=== PATIENT | male | born 1960 | race Caucasian/White ===

== ENCOUNTER 2017-11-12 20:49 | Emergency (ER) | payer MEDICARE, MEDICAID ==
[~2017-11-12] VITALS: Ht 584.7 cm; Wt 69.7 kg
[~2017-11-12 20:49] MED LIST: ASPI-1265 PO; BUPR150T8 PO; CETI-102 PO; CLON-528 PO; FLUT16SP2 NS; HYDR-569 PO; METF1000 PO; MULT-1179 PO; OMEP20CA10 PO; PALI6TAB PO; PAT0.1OS EACHEYE; ROSU10TA PO; SITA50TA PO; SYN0.088T PO
[2017-11-12] MEDS ORDERED: LORazepam 2 mg/ml vial IM ONE (21:35)
[2017-11-12 21:57] LABS: BASOPHILS % (AUTO) 0.2 % (0-1); EOSINOPHILS # (AUTO) 0.2 X10'3 (0-0.9); EOSINOPHILS % (AUTO) 2.4 % (0-6); HEMATOCRIT 38.7 % (42.0-52.0); HEMOGLOBIN 13.4 g/dl (14.0-17.9); LYMPHOCYTES % (AUTO) 12.7 % (21-51); MEAN CORPUSCULAR HEMOGLOBIN 29.7 PG (27.0-31.0); MEAN CORPUSCULAR HGB CONC 34.7 % (33.0-36.5); MEAN CORPUSCULAR VOLUME 85.6 FL (78-98); MONOCYTES # (AUTO) 0.6 X10'3 (0-0.9); NEUTROPHILS % (AUTO) 76.7 % (42-75); PLATELET COUNT 403 X10'3 (140-440); RED BLOOD COUNT 4.52 X10'6 (4.70-6.10); RED CELL DISTRIBUTION WIDTH 14.1 % (11.5-14.5); WHITE BLOOD COUNT 7.8 X10'3 (4.5-11.0)
[2017-11-12 22:12] LABS: ALANINE AMINOTRANSFERASE 81 U/L (12-78); ALBUMIN/GLOBULIN RATIO 0.9 (1.1-1.5); ALKALINE PHOSPHATASE 86 IU/L (46-116); ANION GAP 9 (8-16); ASPARTATE AMINO TRANSFERASE 86 U/L (10-37); BILIRUBIN,TOTAL 0.3 MG/DL (0.1-1.0); BLOOD UREA NITROGEN 9 MG/DL (7-18); BUN/CREATININE RATIO 10.6 (5.4-32.0); CALCIUM 8.2 MG/DL (8.5-10.1); CHLORIDE 91 MMOL/L (99-107); CREATININE 0.85 MG/DL (0.60-1.10); GLUCOSE 170 MG/DL (70-104); POTASSIUM 3.8 MMOL/L (3.5-5.1); SODIUM 125 MMOL/L (135-145); TOTAL CARBON DIOXIDE 25.4 MMOL/L (24-32); TOTAL PROTEIN 6.3 G/DL (6.4-8.2); eGFR > 90 ML/MIN
[2017-11-12 22:21] LABS: ETHANOL < 0.010 GM/DL (0.0-0.010)
[2017-11-12 22:21] LABS: URINE AMPHETAMINE SCREEN NEGATIVE (Neg); URINE BARBITUATE SCREEN NEGATIVE (Neg); URINE BENZODIAZEPINES SCREEN NEGATIVE (Neg); URINE CANNABINOID SCREEN POSITIVE (Neg); URINE COCAINE SCREEN NEGATIVE (Neg); URINE METHADONE SCREEN NEGATIVE (Neg); URINE OPIATE SCREEN NEGATIVE (Neg); URINE PHENCYCLIDINE SCREEN NEGATIVE (Neg)
[2017-11-12 22:27] LABS: CLARITY,URINE CLEAR (Clear); COLOR,URINE YELLOW (Yellow); GLUCOSE, URINE NEGATIVE (Neg); KETONES,URINE NEGATIVE (Neg); LEUKOCYTE ESTERASE ,URINE NEGATIVE (Neg); NITRITES, URINE NEGATIVE (Neg); OCCULT BLOOD,URINE SMALL (Neg); PROTEIN,URINE 100 mg/dl (Neg); UROBILINOGEN,URINE 0.2 E.U/dL (0.2-1.0)
[2017-11-12 22:30] LABS: UA COLLECTION TYPE CLN CATCH MIDSTREAM
[2017-11-12 22:33] LABS: BACTERIA,URINE NONE SEEN /HPF (Neg); MUCUS STRANDS NONE SEEN /LPF (Neg); RBC,URINE 0-2 /HPF (0-2); SQUAMOUS EPITHELIAL CELL,UR NONE SEEN /LPF (FEW); WBC,URINE NONE SEEN /HPF (0-4)
[2017-11-12] MEDS ORDERED: OXCA300T4 PO ×2 (22:52)
[2017-11-12] MEDS ORDERED: PALI6TAB PO (22:52)
[2017-11-12] MEDS ORDERED: QUET-1 PO (22:52)
[2017-11-12] MEDS ORDERED: VALS1TAB73 PO (22:52)
[2017-11-12] MEDS ORDERED: SITA1TAB2 PO (22:52)
[2017-11-13] MEDS ORDERED: albuterol 2.5 MG/3 ML nebule NEB PRN (16:40)
[2017-11-13 18:02] VITALS: BP 147/91
[2017-11-13] MEDS ORDERED: naphazoline/pheniramine eye 1 DROP BOTTLE EACHEYE SCH (20:00)
[2017-11-13] MEDS ORDERED: metFORMIN 500mg tablet PO SCH (20:00)
[2017-11-13] MEDS ORDERED: oxcarbazepine 150mg tablet PO SCH (21:00)
[2017-11-13] MEDS ORDERED: PALIPERIDONE 3 MG TAB.ER.24 PO SCH (21:00)
[2017-11-13] MEDS ORDERED: quetiapine 100mg tablet PO SCH (21:00)
[2017-11-14] MEDS ORDERED: levoTHYROXINE 88mcg tablet PO SCH (07:00)
[2017-11-14] MEDS ORDERED: pantoprazole 40mg Tablet.DR PO SCH (07:30)
[2017-11-14] MEDS ORDERED: oxcarbazepine 150mg tablet PO SCH (08:00)
[2017-11-14] MEDS ORDERED: HYDROchlorothiazide 12.5mg capsule PO SCH ×2 (08:00)
[2017-11-14] MEDS ORDERED: valsartan 80mg tablet PO SCH (08:00)
[2017-11-14] MEDS ORDERED: atorvastatin 20mg tablet PO SCH (08:00)
[2017-11-14] MEDS ORDERED: aspirin 81mg tab.chew PO SCH (08:30)
== END 2017-11-13 19:04 | disposition home or self-care (01) ==
LOC: ER 20:50
DX: F31.2 Bipolar disorder, current episode manic severe with psychotic features (principal); I25.10 Atherosclerotic heart disease of native coronary artery without angina pectoris; E78.00 Pure hypercholesterolemia, unspecified; I10 Essential (primary) hypertension; F20.9 Schizophrenia, unspecified; Z95.1 Presence of aortocoronary bypass graft; Z56.0 Unemployment, unspecified; Z88.1 Allergy status to other antibiotic agents; Z88.8 Allergy status to other drugs, medicaments and biological substances; Z79.82 Long term (current) use of aspirin; Z79.899 Other long term (current) drug therapy
CPT/HCPCS: 36415; 80053; 80305; 80320; 81001; 84443; 85025; 96372; 99285; J2060; J7030

== ENCOUNTER 2017-12-08 16:33 | Emergency (ER) | payer MEDICARE, MEDICAID ==
[~2017-12-08] VITALS: Ht 578.2 cm; Wt 70.0 kg
[~2017-12-08 16:33] MED LIST changes: -BUPR150T8 PO; -CLON-528 PO; -FLUT16SP2 NS; -HYDR-569 PO; +LITH150C8 PO; -METF1000 PO; +METF500T6 PO; -OMEP20CA10 PO; -PALI6TAB PO; +PANT40TA4 PO; -PAT0.1OS EACHEYE; +QUET100T33 PO; +QUET200T30 PO; +SITA1TAB2 PO; -SITA50TA PO; +TEMA30CA PO
[2017-12-08 16:37] VITALS: BP 154/93
[2017-12-08 17:53] LABS: BASOPHILS % (AUTO) 0.3 % (0-1); EOSINOPHILS # (AUTO) 0.1 X10'3 (0-0.9); EOSINOPHILS % (AUTO) 1.2 % (0-6); LYMPHOCYTES # (AUTO) 1.4 X10'3 (1.1-4.8); LYMPHOCYTES % (AUTO) 16.4 % (21-51); MEAN CORPUSCULAR HEMOGLOBIN 29.7 PG (27.0-31.0); MEAN CORPUSCULAR HGB CONC 34.2 % (33.0-36.5); MEAN CORPUSCULAR VOLUME 86.9 FL (78-98); MEAN PLATELET VOLUME 6.6 FL (7.4-10.4); MONOCYTES # (AUTO) 0.6 X10'3 (0-0.9); MONOCYTES % (AUTO) 6.9 % (2-12); NEUTROPHILS # (AUTO) 6.4 X10'3 (1.8-7.7); NEUTROPHILS % (AUTO) 75.2 % (42-75); PLATELET COUNT 446 X10'3 (140-440); RED BLOOD COUNT 4.37 X10'6 (4.70-6.10); RED CELL DISTRIBUTION WIDTH 14.1 % (11.5-14.5); WHITE BLOOD COUNT 8.6 X10'3 (4.5-11.0)
[2017-12-08 18:08] LABS: ALANINE AMINOTRANSFERASE 38 U/L (12-78); ALBUMIN 2.6 G/DL (3.4-5.0); ALBUMIN/GLOBULIN RATIO 0.7 (1.1-1.5); ALKALINE PHOSPHATASE 91 IU/L (46-116); ANION GAP 9 (8-16); ASPARTATE AMINO TRANSFERASE 32 U/L (10-37); BILIRUBIN,TOTAL 0.3 MG/DL (0.1-1.0); BLOOD UREA NITROGEN 16 MG/DL (7-18); BUN/CREATININE RATIO 17.8 (5.4-32.0); CALCIUM 8.9 MG/DL (8.5-10.1); CHLORIDE 92 MMOL/L (99-107); GLUCOSE 233 MG/DL (70-104); POTASSIUM 4.1 MMOL/L (3.5-5.1); SODIUM 126 MMOL/L (135-145); TOTAL PROTEIN 6.2 G/DL (6.4-8.2); eGFR 87 ML/MIN
[2017-12-08 18:09] LABS: URINE AMPHETAMINE SCREEN NEGATIVE (Neg); URINE BARBITUATE SCREEN NEGATIVE (Neg); URINE BENZODIAZEPINES SCREEN NEGATIVE (Neg); URINE CANNABINOID SCREEN POSITIVE (Neg); URINE COCAINE SCREEN NEGATIVE (Neg); URINE METHADONE SCREEN NEGATIVE (Neg); URINE OPIATE SCREEN NEGATIVE (Neg); URINE PHENCYCLIDINE SCREEN NEGATIVE (Neg)
[2017-12-08 18:18] LABS: ETHANOL < 0.010 GM/DL (0.0-0.010)
[2017-12-08] MEDS ORDERED: normal saline 1000ML IV soln IVB ONE (18:25)
== END 2017-12-08 20:06 | disposition home or self-care (01) ==
LOC: ER 16:33
DX: F30.9 Manic episode, unspecified (principal); Z95.1 Presence of aortocoronary bypass graft; Z98.890 Other specified postprocedural states; Z56.0 Unemployment, unspecified; Z88.1 Allergy status to other antibiotic agents; Z88.8 Allergy status to other drugs, medicaments and biological substances; Z79.84 Long term (current) use of oral hypoglycemic drugs; Z79.82 Long term (current) use of aspirin; Z79.899 Other long term (current) drug therapy
CPT/HCPCS: 36415; 80053; 80178; 80305; 80320; 84443; 85025; 99284; J7030

== ENCOUNTER 2017-12-08 18:25 | Inpatient (IN) | payer MEDICARE, MEDICAID ==
[~2017-12-08] VITALS: Ht 167.6 cm; Wt 65.5 kg
[2017-12-08 22:01] VITALS: BP 171/109
[2017-12-08] MEDS ORDERED: metFORMIN 500mg tablet PO ONE (22:15)
[2017-12-08] MEDS ORDERED: magnesium hydroxide 30ml (MOM) UD suspension PO PRN (22:25)
[2017-12-08] MEDS ORDERED: acetaminophen 325mg tablet PO PRN (22:25)
[2017-12-08] MEDS ORDERED: mag hydrox/Alum hydrox/simeth 30ml oral suspension PO PRN (22:25)
[2017-12-08] MEDS ORDERED: lithium carbonate 450mg CR tablet PO ONE (22:25)
[2017-12-08] MEDS: quetiapine 100mg tablet PO SCH (22:48)
[2017-12-09] MEDS: pantoprazole 40mg Tablet.DR PO SCH (07:15)
[2017-12-09] MEDS: quetiapine 100mg tablet PO SCH ×3 (07:16→21:58)
[2017-12-09] MEDS: levoTHYROXINE 100mcg tablet PO SCH (07:16)
[2017-12-09] MEDS: multivitamins, therapeutics tablet PO SCH (07:52)
[2017-12-09] MEDS: metFORMIN 500mg tablet PO SCH ×2 (07:52→20:00)
[2017-12-09] MEDS: cetirizine 10mg tablet PO SCH (07:52)
[2017-12-09] MEDS: losartan 50mg tablet PO SCH (07:52)
[2017-12-09] MEDS: aspirin 81mg tab.chew PO SCH (07:53)
[2017-12-09 07:59] LABS: ALANINE AMINOTRANSFERASE 36 U/L (12-78); ALBUMIN 2.3 G/DL (3.4-5.0); ALBUMIN/GLOBULIN RATIO 0.7 (1.1-1.5); ALKALINE PHOSPHATASE 75 IU/L (46-116); ASPARTATE AMINO TRANSFERASE 21 U/L (10-37); BILIRUBIN,TOTAL 0.2 MG/DL (0.1-1.0); BLOOD UREA NITROGEN 13 MG/DL (7-18); BUN/CREATININE RATIO 14.4 (5.4-32.0); CALCIUM 8.6 MG/DL (8.5-10.1); CHOL/HDL RATIO 4.9 (0.00-4.99); CHOLESTEROL 248 MG/DL (0-200); GLUCOSE 167 MG/DL (70-104); HDL CHOLESTEROL 51 MG/DL (35-60); LDL CHOLESTEROL 156 MG/DL (50-100); TOTAL CARBON DIOXIDE 24.8 MMOL/L (24-32); TOTAL PROTEIN 5.7 G/DL (6.4-8.2); TRIGLYCERIDES 209 MG/DL (20-135); eGFR 87 ML/MIN
[2017-12-09 08:00] VITALS: BP 124/73
[2017-12-09 08:00] LABS: ANION GAP 6 (8-16); CHLORIDE 102 MMOL/L (99-107); POTASSIUM 3.7 MMOL/L (3.5-5.1); SODIUM 133 MMOL/L (135-145)
[2017-12-09] MEDS ORDERED: SITAGLIPTIN PHOS PO SCH (08:00)
[2017-12-09] MEDS ORDERED: metFORMIN 500mg tablet PO SCH (08:00)
[2017-12-09] MEDS ORDERED: METFORMIN HCL PO SCH (08:00)
[2017-12-09] MEDS: lithium carbonate 150mg capsule PO SCH ×2 (08:19→21:59)
[2017-12-09] MEDS: acetaminophen 325mg tablet PO PRN ×2 (09:46→17:03)
[2017-12-09 19:59] VITALS: BP 151/86
[2017-12-09] MEDS: temazepam 15mg capsule PO PRN (22:08)
[2017-12-10] MEDS: metFORMIN 500mg tablet PO SCH ×2 (07:36→20:39)
[2017-12-10] MEDS: losartan 50mg tablet PO SCH (07:37)
[2017-12-10] MEDS: cetirizine 10mg tablet PO SCH (07:37)
[2017-12-10] MEDS: multivitamins, therapeutics tablet PO SCH (07:37)
[2017-12-10] MEDS: quetiapine 100mg tablet PO SCH (07:37)
[2017-12-10] MEDS: aspirin 81mg tab.chew PO SCH (07:37)
[2017-12-10] MEDS: pantoprazole 40mg Tablet.DR PO SCH (07:37)
[2017-12-10] MEDS: levoTHYROXINE 100mcg tablet PO SCH (07:37)
[2017-12-10] MEDS: lithium carbonate 150mg capsule PO SCH ×2 (07:38→20:38)
[2017-12-10 08:00] VITALS: BP 134/94
[2017-12-10 08:25] LABS: ALANINE AMINOTRANSFERASE 37 U/L (12-78); ALBUMIN 2.9 G/DL (3.4-5.0); ALBUMIN/GLOBULIN RATIO 0.8 (1.1-1.5); ALKALINE PHOSPHATASE 94 IU/L (46-116); ANION GAP 9 (8-16); ASPARTATE AMINO TRANSFERASE 26 U/L (10-37); BILIRUBIN,TOTAL 0.4 MG/DL (0.1-1.0); BLOOD UREA NITROGEN 17 MG/DL (7-18); CALCIUM 9.2 MG/DL (8.5-10.1); CHLORIDE 101 MMOL/L (99-107); CREATININE 1.13 MG/DL (0.60-1.10); GLUCOSE 159 MG/DL (70-104); POTASSIUM 3.2 MMOL/L (3.5-5.1); SODIUM 136 MMOL/L (135-145); TOTAL CARBON DIOXIDE 26.5 MMOL/L (24-32); TOTAL PROTEIN 6.7 G/DL (6.4-8.2); eGFR 67 ML/MIN
[2017-12-10] MEDS: QUETIAPINE 200 MG TAB.SR.24H PO SCH (17:46)
[2017-12-10 19:00] VITALS: BP 136/79
[2017-12-10 23:39] LABS: BASOPHILS # (AUTO) 0.1 X10'3 (0-0.2); BASOPHILS % (AUTO) 0.9 % (0-1); EOSINOPHILS # (AUTO) 0.1 X10'3 (0-0.9); EOSINOPHILS % (AUTO) 1.8 % (0-6); HEMATOCRIT 38.9 % (42.0-52.0); HEMOGLOBIN 13.4 g/dl (14.0-17.9); LYMPHOCYTES # (AUTO) 1.2 X10'3 (1.1-4.8); MEAN CORPUSCULAR HEMOGLOBIN 29.8 PG (27.0-31.0); MEAN CORPUSCULAR HGB CONC 34.4 % (33.0-36.5); MEAN CORPUSCULAR VOLUME 86.6 FL (78-98); MEAN PLATELET VOLUME 6.5 FL (7.4-10.4); MONOCYTES # (AUTO) 0.4 X10'3 (0-0.9); MONOCYTES % (AUTO) 6.9 % (2-12); NEUTROPHILS # (AUTO) 4.7 X10'3 (1.8-7.7); NEUTROPHILS % (AUTO) 72.4 % (42-75); PLATELET COUNT 449 X10'3 (140-440); RED BLOOD COUNT 4.49 X10'6 (4.70-6.10); RED CELL DISTRIBUTION WIDTH 14.6 % (11.5-14.5); WHITE BLOOD COUNT 6.5 X10'3 (4.5-11.0)
[2017-12-10] MEDS ORDERED: normal saline 1000ml 1,000 ML IV ONE ×2 (23:45)
[2017-12-10 23:53] LABS: ALBUMIN 2.6 G/DL (3.4-5.0); ALBUMIN/GLOBULIN RATIO 0.8 (1.1-1.5); ALKALINE PHOSPHATASE 78 IU/L (46-116); ANION GAP 12 (8-16); ASPARTATE AMINO TRANSFERASE 27 U/L (10-37); BILIRUBIN,TOTAL 0.3 MG/DL (0.1-1.0); BLOOD UREA NITROGEN 23 MG/DL (7-18); BUN/CREATININE RATIO 16.7 (5.4-32.0); CALCIUM 8.6 MG/DL (8.5-10.1); CHLORIDE 100 MMOL/L (99-107); CREATININE 1.38 MG/DL (0.60-1.10); GLUCOSE 212 MG/DL (70-104); SODIUM 133 MMOL/L (135-145); TOTAL CARBON DIOXIDE 21.3 MMOL/L (24-32); eGFR 53 ML/MIN
[2017-12-10 23:55] LABS: ALANINE AMINOTRANSFERASE 39 U/L (12-78); POTASSIUM 3.7 MMOL/L (3.5-5.1)
[2017-12-11] MEDS: temazepam 15mg capsule PO PRN ×2 (02:55→20:32)
[2017-12-11] MEDS: quetiapine 100mg tablet PO PRN ×2 (02:55→20:31)
[2017-12-11] MEDS: pantoprazole 40mg Tablet.DR PO SCH (07:48)
[2017-12-11] MEDS: levoTHYROXINE 100mcg tablet PO SCH (07:48)
[2017-12-11 08:00] VITALS: BP 154/84
[2017-12-11] MEDS: aspirin 81mg tab.chew PO SCH (08:56)
[2017-12-11] MEDS: cetirizine 10mg tablet PO SCH (08:57)
[2017-12-11] MEDS: metFORMIN 500mg tablet PO SCH ×2 (08:57→20:31)
[2017-12-11] MEDS: acetaminophen 325mg tablet PO PRN ×2 (08:57→20:34)
[2017-12-11] MEDS: multivitamins, therapeutics tablet PO SCH (08:57)
[2017-12-11 09:30] LABS: ALANINE AMINOTRANSFERASE 39 U/L (12-78); ALBUMIN 2.6 G/DL (3.4-5.0); ALBUMIN/GLOBULIN RATIO 0.8 (1.1-1.5); ALKALINE PHOSPHATASE 78 IU/L (46-116); ANION GAP 6 (8-16); ASPARTATE AMINO TRANSFERASE 24 U/L (10-37); BILIRUBIN,TOTAL 0.4 MG/DL (0.1-1.0); BLOOD UREA NITROGEN 14 MG/DL (7-18); BUN/CREATININE RATIO 13.6 (5.4-32.0); CALCIUM 8.5 MG/DL (8.5-10.1); CHLORIDE 103 MMOL/L (99-107); CREATININE 1.03 MG/DL (0.60-1.10); GLUCOSE 135 MG/DL (70-104); POTASSIUM 3.4 MMOL/L (3.5-5.1); SODIUM 135 MMOL/L (135-145); eGFR 74 ML/MIN
[2017-12-11] MEDS: losartan 50mg tablet PO SCH (09:42)
[2017-12-11] MEDS: lithium carbonate 150mg capsule PO SCH (09:44)
[2017-12-11] MEDS: QUETIAPINE 200 MG TAB.SR.24H PO SCH (17:57)
[2017-12-11 19:00] VITALS: BP 154/86
[2017-12-11] MEDS ORDERED: lithium carbonate 150mg capsule PO SCH (21:00)
[2017-12-12] MEDS: quetiapine 100mg tablet PO PRN ×2 (00:51→21:39)
[2017-12-12] MEDS: pantoprazole 40mg Tablet.DR PO SCH (07:46)
[2017-12-12] MEDS: levoTHYROXINE 100mcg tablet PO SCH (07:46)
[2017-12-12 08:03] LABS: ALBUMIN 2.7 G/DL (3.4-5.0); ANION GAP 6 (8-16); BLOOD UREA NITROGEN 13 MG/DL (7-18); BUN/CREATININE RATIO 12.7 (5.4-32.0); CALCIUM 8.6 MG/DL (8.5-10.1); CHLORIDE 100 MMOL/L (99-107); CREATININE 1.02 MG/DL (0.60-1.10); GLUCOSE 172 MG/DL (70-104); POTASSIUM 4.1 MMOL/L (3.5-5.1); SODIUM 132 MMOL/L (135-145); TOTAL CARBON DIOXIDE 25.8 MMOL/L (24-32); eGFR 75 ML/MIN
[2017-12-12 08:10] VITALS: BP 103/71
[2017-12-12] MEDS ORDERED: loperamide 2mg capsule PO PRN ×2 (08:10→08:50)
[2017-12-12] MEDS: cetirizine 10mg tablet PO SCH (08:52)
[2017-12-12] MEDS: aspirin 81mg tab.chew PO SCH (08:52)
[2017-12-12] MEDS: multivitamins, therapeutics tablet PO SCH (08:52)
[2017-12-12] MEDS: metFORMIN 500mg tablet PO SCH ×2 (08:53→19:27)
[2017-12-12] MEDS: lithium carbonate 150mg capsule PO SCH ×2 (08:53→19:26)
[2017-12-12 09:00] VITALS: BP 146/95
[2017-12-12] MEDS: QUETIAPINE 200 MG TAB.SR.24H PO SCH (18:01)
[2017-12-12] MEDS: acetaminophen 325mg tablet PO PRN (19:28)
[2017-12-12 20:00] VITALS: BP 150/73
[2017-12-12] MEDS: temazepam 15mg capsule PO PRN (21:39)
[2017-12-13] MEDS: pantoprazole 40mg Tablet.DR PO SCH (07:43)
[2017-12-13] MEDS: cetirizine 10mg tablet PO SCH (07:43)
[2017-12-13] MEDS: lithium carbonate 150mg capsule PO SCH ×2 (07:44→20:57)
[2017-12-13] MEDS: aspirin 81mg tab.chew PO SCH (07:45)
[2017-12-13] MEDS: metFORMIN 500mg tablet PO SCH ×2 (07:45→20:57)
[2017-12-13] MEDS: multivitamins, therapeutics tablet PO SCH (07:45)
[2017-12-13] MEDS: levoTHYROXINE 100mcg tablet PO SCH (07:45)
[2017-12-13 08:04] VITALS: BP 138/85
[2017-12-13 09:21] LABS: ALBUMIN 2.7 G/DL (3.4-5.0); ANION GAP 2 (8-16); BLOOD UREA NITROGEN 12 MG/DL (7-18); BUN/CREATININE RATIO 11.3 (5.4-32.0); CALCIUM 8.9 MG/DL (8.5-10.1); CHLORIDE 101 MMOL/L (99-107); CREATININE 1.06 MG/DL (0.60-1.10); GLUCOSE 203 MG/DL (70-104); POTASSIUM 4.2 MMOL/L (3.5-5.1); SODIUM 133 MMOL/L (135-145); TOTAL CARBON DIOXIDE 29.7 MMOL/L (24-32); eGFR 72 ML/MIN
[2017-12-13 14:07] LABS: CRYPTOSPORIDIUM AG NEGATIVE (Neg); GIARDIA LAMBLIA AG NEGATIVE (Neg)
[2017-12-13 18:57] VITALS: BP 157/88
[2017-12-13] MEDS: QUETIAPINE 200 MG TAB.SR.24H PO SCH (19:17)
[2017-12-13] MEDS: acetaminophen 325mg tablet PO PRN (19:18)
[2017-12-13] MEDS: divalproex sod 250mg ER (24-hour) tablet PO SCH (20:57)
[2017-12-13] MEDS: temazepam 15mg capsule PO PRN (20:58)
[2017-12-14 08:00] VITALS: BP 138/93
[2017-12-14] MEDS: levoTHYROXINE 100mcg tablet PO SCH (08:15)
[2017-12-14] MEDS: aspirin 81mg tab.chew PO SCH (08:16)
[2017-12-14] MEDS: lithium carbonate 150mg capsule PO SCH ×2 (08:16→20:24)
[2017-12-14] MEDS: pantoprazole 40mg Tablet.DR PO SCH (08:16)
[2017-12-14] MEDS: metFORMIN 500mg tablet PO SCH ×2 (08:16→20:24)
[2017-12-14] MEDS: multivitamins, therapeutics tablet PO SCH (08:16)
[2017-12-14] MEDS: cetirizine 10mg tablet PO SCH (08:16)
[2017-12-14] MEDS: QUETIAPINE 200 MG TAB.SR.24H PO SCH (17:36)
[2017-12-14 19:00] VITALS: BP 144/84
[2017-12-14] MEDS: divalproex sod 250mg ER (24-hour) tablet PO SCH (20:24)
[2017-12-14] MEDS: temazepam 15mg capsule PO PRN (21:38)
[2017-12-15] MEDS: metFORMIN 500mg tablet PO SCH ×2 (07:48→20:36)
[2017-12-15] MEDS: pantoprazole 40mg Tablet.DR PO SCH (07:48)
[2017-12-15] MEDS: levoTHYROXINE 100mcg tablet PO SCH (07:48)
[2017-12-15] MEDS: multivitamins, therapeutics tablet PO SCH (07:48)
[2017-12-15] MEDS: cetirizine 10mg tablet PO SCH (07:48)
[2017-12-15] MEDS: lithium carbonate 150mg capsule PO SCH ×2 (07:49→20:36)
[2017-12-15] MEDS: aspirin 81mg tab.chew PO SCH (07:49)
[2017-12-15 08:00] VITALS: BP 153/89
[2017-12-15] MEDS: QUETIAPINE 200 MG TAB.SR.24H PO SCH (17:42)
[2017-12-15 20:00] VITALS: BP 161/78
[2017-12-15] MEDS: divalproex sod 250mg ER (24-hour) tablet PO SCH (22:00)
[2017-12-15] MEDS: temazepam 15mg capsule PO PRN (22:08)
[2017-12-16] MEDS ORDERED: temazepam 15mg capsule PO ONE
[2017-12-16] MEDS: levoTHYROXINE 100mcg tablet PO SCH (07:10)
[2017-12-16] MEDS: pantoprazole 40mg Tablet.DR PO SCH (07:10)
[2017-12-16 08:00] VITALS: BP 134/97
[2017-12-16] MEDS ORDERED: divalproex sod 250mg ER (24-hour) tablet PO SCH (08:00)
[2017-12-16] MEDS: metFORMIN 500mg tablet PO SCH ×2 (08:06→21:03)
[2017-12-16] MEDS: multivitamins, therapeutics tablet PO SCH (08:06)
[2017-12-16] MEDS: aspirin 81mg tab.chew PO SCH (08:06)
[2017-12-16] MEDS: cetirizine 10mg tablet PO SCH (08:07)
[2017-12-16] MEDS: lithium carbonate 150mg capsule PO SCH ×2 (08:07→21:04)
[2017-12-16] MEDS: QUETIAPINE 200 MG TAB.SR.24H PO SCH (18:58)
[2017-12-16 20:21] VITALS: BP 135/85
[2017-12-16] MEDS: quetiapine 100mg tablet PO PRN (21:04)
[2017-12-16] MEDS: temazepam 15mg capsule PO PRN (21:58)
[2017-12-17] MEDS: pantoprazole 40mg Tablet.DR PO SCH (07:17)
[2017-12-17] MEDS: levoTHYROXINE 100mcg tablet PO SCH (07:17)
[2017-12-17] MEDS: aspirin 81mg tab.chew PO SCH (07:58)
[2017-12-17] MEDS: multivitamins, therapeutics tablet PO SCH (07:59)
[2017-12-17] MEDS: lithium carbonate 150mg capsule PO SCH ×2 (07:59→20:09)
[2017-12-17] MEDS: metFORMIN 500mg tablet PO SCH ×2 (07:59→18:49)
[2017-12-17] MEDS: divalproex sod 250mg ER (24-hour) tablet PO SCH ×2 (07:59→20:07)
[2017-12-17] MEDS: cetirizine 10mg tablet PO SCH (07:59)
[2017-12-17 08:00] VITALS: BP 147/92
[2017-12-17] MEDS: acetaminophen 325mg tablet PO PRN (17:08)
[2017-12-17] MEDS: QUETIAPINE 200 MG TAB.SR.24H PO SCH (17:53)
[2017-12-17 20:00] VITALS: BP 142/84
[2017-12-17] MEDS: quetiapine 100mg tablet PO PRN (22:12)
[2017-12-17] MEDS: temazepam 15mg capsule PO PRN (22:12)
[2017-12-18] MEDS: divalproex sod 250mg ER (24-hour) tablet PO SCH ×2 (07:34→20:54)
[2017-12-18] MEDS: pantoprazole 40mg Tablet.DR PO SCH (07:34)
[2017-12-18] MEDS: metFORMIN 500mg tablet PO SCH ×2 (07:34→20:53)
[2017-12-18] MEDS: levoTHYROXINE 100mcg tablet PO SCH (07:34)
[2017-12-18] MEDS: cetirizine 10mg tablet PO SCH (07:34)
[2017-12-18] MEDS: lithium carbonate 150mg capsule PO SCH ×2 (07:35→20:54)
[2017-12-18] MEDS: aspirin 81mg tab.chew PO SCH (07:35)
[2017-12-18] MEDS: multivitamins, therapeutics tablet PO SCH (07:35)
[2017-12-18 08:00] VITALS: BP 163/88
[2017-12-18] MEDS: QUETIAPINE 200 MG TAB.SR.24H PO SCH (17:49)
[2017-12-18 19:36] VITALS: BP 155/87
[2017-12-18] MEDS: temazepam 15mg capsule PO PRN ×2 (20:53→22:01)
[2017-12-18] MEDS: quetiapine 100mg tablet PO PRN (22:01)
[2017-12-19 08:00] VITALS: BP 136/85
[2017-12-19] MEDS: levoTHYROXINE 100mcg tablet PO SCH (08:21)
[2017-12-19] MEDS: metFORMIN 500mg tablet PO SCH ×2 (08:21→19:17)
[2017-12-19] MEDS: multivitamins, therapeutics tablet PO SCH (08:21)
[2017-12-19] MEDS: aspirin 81mg tab.chew PO SCH (08:21)
[2017-12-19] MEDS: cetirizine 10mg tablet PO SCH (08:22)
[2017-12-19] MEDS: pantoprazole 40mg Tablet.DR PO SCH (08:22)
[2017-12-19] MEDS: lithium carbonate 150mg capsule PO SCH ×2 (09:07→19:17)
[2017-12-19] MEDS: divalproex sod 250mg ER (24-hour) tablet PO SCH ×2 (09:07→19:17)
[2017-12-19 09:29] LABS: BASOPHILS % (AUTO) 0.4 % (0-1); EOSINOPHILS # (AUTO) 0.2 X10'3 (0-0.9); EOSINOPHILS % (AUTO) 3.2 % (0-6); HEMATOCRIT 39.8 % (42.0-52.0); HEMOGLOBIN 13.4 g/dl (14.0-17.9); LYMPHOCYTES # (AUTO) 1.2 X10'3 (1.1-4.8); LYMPHOCYTES % (AUTO) 17.7 % (21-51); MEAN CORPUSCULAR HEMOGLOBIN 29.4 PG (27.0-31.0); MEAN CORPUSCULAR HGB CONC 33.8 % (33.0-36.5); MEAN CORPUSCULAR VOLUME 87.2 FL (78-98); MEAN PLATELET VOLUME 6.6 FL (7.4-10.4); MONOCYTES # (AUTO) 0.4 X10'3 (0-0.9); MONOCYTES % (AUTO) 5.5 % (2-12); NEUTROPHILS % (AUTO) 73.2 % (42-75); PLATELET COUNT 362 X10'3 (140-440); RED BLOOD COUNT 4.57 X10'6 (4.70-6.10); RED CELL DISTRIBUTION WIDTH 14.8 % (11.5-14.5); WHITE BLOOD COUNT 6.8 X10'3 (4.5-11.0)
[2017-12-19 09:46] LABS: ALANINE AMINOTRANSFERASE 24 U/L (12-78); ALBUMIN 2.7 G/DL (3.4-5.0); ALBUMIN/GLOBULIN RATIO 0.8 (1.1-1.5); ALKALINE PHOSPHATASE 77 IU/L (46-116); ANION GAP 6 (8-16); ASPARTATE AMINO TRANSFERASE 19 U/L (10-37); BILIRUBIN,TOTAL 0.3 MG/DL (0.1-1.0); BLOOD UREA NITROGEN 13 MG/DL (7-18); BUN/CREATININE RATIO 12.1 (5.4-32.0); CALCIUM 8.5 MG/DL (8.5-10.1); CHLORIDE 100 MMOL/L (99-107); CREATININE 1.07 MG/DL (0.60-1.10); GLUCOSE 271 MG/DL (70-104); POTASSIUM 4.1 MMOL/L (3.5-5.1); SODIUM 135 MMOL/L (135-145); TOTAL CARBON DIOXIDE 28.8 MMOL/L (24-32); TOTAL PROTEIN 5.9 G/DL (6.4-8.2); eGFR 71 ML/MIN
[2017-12-19 09:53] LABS: VALPROATE 31 UG/ML (50-100)
[2017-12-19 19:00] VITALS: BP 154/87
[2017-12-19] MEDS: quetiapine 100mg tablet PO PRN ×2 (19:20→22:20)
[2017-12-19] MEDS: QUETIAPINE 200 MG TAB.SR.24H PO SCH (19:24)
[2017-12-19] MEDS: acetaminophen 325mg tablet PO PRN (20:11)
[2017-12-20] MEDS: levoTHYROXINE 100mcg tablet PO SCH (07:07)
[2017-12-20] MEDS: pantoprazole 40mg Tablet.DR PO SCH (07:07)
[2017-12-20] MEDS ORDERED: METF500T6 PO (07:32)
[2017-12-20] MEDS ORDERED: LEVO50TA8 PO (07:32)
[2017-12-20] MEDS ORDERED: SITA100T11 PO (07:32)
[2017-12-20] MEDS ORDERED: PANT40TA4 PO (07:32)
[2017-12-20] MEDS ORDERED: TEMA15CA PO (07:32)
[2017-12-20] MEDS ORDERED: QUET400T54 PO (07:32)
[2017-12-20] MEDS ORDERED: LIT300C PO (07:32)
[2017-12-20 08:00] VITALS: BP 137/87
[2017-12-20] MEDS: aspirin 81mg tab.chew PO SCH (08:19)
[2017-12-20] MEDS: metFORMIN 500mg tablet PO SCH (08:20)
[2017-12-20] MEDS: lithium carbonate 150mg capsule PO SCH (08:20)
[2017-12-20] MEDS: cetirizine 10mg tablet PO SCH (08:20)
[2017-12-20] MEDS: divalproex sod 250mg ER (24-hour) tablet PO SCH (08:20)
[2017-12-20] MEDS: multivitamins, therapeutics tablet PO SCH (08:23)
== END 2017-12-20 11:05 | disposition home or self-care (01) | DRG 885 ==
LOC: ADULT MH 18:25
PROVIDERS: ADMIT Psychiatry & Neurology Psychiatry; ATTEND Psychiatry & Neurology Psychiatry
DX: F31.2 Bipolar disorder, current episode manic severe with psychotic features (principal); E87.1 Hypo-osmolality and hyponatremia; K50.90 Crohn's disease, unspecified, without complications; K21.9 Gastro-esophageal reflux disease without esophagitis; E78.5 Hyperlipidemia, unspecified; E03.9 Hypothyroidism, unspecified; E11.9 Type 2 diabetes mellitus without complications; G47.00 Insomnia, unspecified; I10 Essential (primary) hypertension; Z96.1 Presence of intraocular lens; I25.10 Atherosclerotic heart disease of native coronary artery without angina pectoris; I95.1 Orthostatic hypotension; F12.29 Cannabis dependence with unspecified cannabis-induced disorder; Z91.14 Patient's other noncompliance with medication regimen; Z95.1 Presence of aortocoronary bypass graft; Z88.8 Allergy status to other drugs, medicaments and biological substances; Z88.1 Allergy status to other antibiotic agents; Z98.42 Cataract extraction status, left eye; Z98.41 Cataract extraction status, right eye; Z79.899 Other long term (current) drug therapy; Z79.84 Long term (current) use of oral hypoglycemic drugs; Z81.8 Family history of other mental and behavioral disorders
CPT/HCPCS: 36415; 80048; 80053; 80061; 80164; 80178; 82948; 83036; 85025; 87045; 87046; 87070; 87328; 87329; 87336; 89055; J7030

== ENCOUNTER 2018-07-19 15:16 | Emergency (ER) | payer MEDICARE, MEDICAID ==
[~2018-07-19] VITALS: Ht 172.7 cm; Wt 72.7 kg
[~2018-07-19 15:16] MED LIST changes: +LEVO50TA8 PO; +LIT300C PO; -LITH150C8 PO; +METF-950 PO; -METF500T6 PO; -QUET100T33 PO; -QUET200T30 PO; +QUET400T54 PO; -ROSU10TA PO; +SITA100T11 PO; -SITA1TAB2 PO; -SYN0.088T PO; +TEMA15CA PO; -TEMA30CA PO
[2018-07-19 16:45] LABS: BASOPHILS % (AUTO) 0.5 % (0-1); EOSINOPHILS # (AUTO) 0.2 X10'3 (0-0.9); EOSINOPHILS % (AUTO) 2.6 % (0-6); HEMATOCRIT 41.4 % (42.0-52.0); LYMPHOCYTES # (AUTO) 1.1 X10'3 (1.1-4.8); LYMPHOCYTES % (AUTO) 11.9 % (21-51); MEAN CORPUSCULAR HEMOGLOBIN 30.8 PG (27.0-31.0); MEAN CORPUSCULAR HGB CONC 33.8 g/dL (33.0-36.5); MEAN CORPUSCULAR VOLUME 91.2 FL (78-98); MEAN PLATELET VOLUME 7.6 FL (7.4-10.4); MONOCYTES # (AUTO) 1.3 X10'3 (0-0.9); MONOCYTES % (AUTO) 13.7 % (2-12); NEUTROPHILS # (AUTO) 6.8 X10'3 (1.8-7.7); NEUTROPHILS % (AUTO) 71.3 % (42-75); PLATELET COUNT 225 X10'3 (140-440); RED BLOOD COUNT 4.54 X10'6 (4.70-6.10); RED CELL DISTRIBUTION WIDTH 12.9 % (11.5-14.5); WHITE BLOOD COUNT 9.5 X10'3 (4.5-11.0)
[2018-07-19 17:02] LABS: ALANINE AMINOTRANSFERASE 21 U/L (12-78); ALBUMIN 3.4 G/DL (3.4-5.0); ALBUMIN/GLOBULIN RATIO 0.9 (1.1-1.5); ALKALINE PHOSPHATASE 62 IU/L (46-116); ANION GAP 8 (8-16); ASPARTATE AMINO TRANSFERASE 11 U/L (10-37); BILIRUBIN,TOTAL 0.6 MG/DL (0.1-1.0); BLOOD UREA NITROGEN 14 MG/DL (7-18); BUN/CREATININE RATIO 11.2 (5.4-32.0); CALCIUM 9.6 MG/DL (8.5-10.1); CHLORIDE 102 MMOL/L (99-107); CREATININE 1.25 MG/DL (0.60-1.10); GLUCOSE 173 MG/DL (70-104); POTASSIUM 4.5 MMOL/L (3.5-5.1); SODIUM 136 MMOL/L (135-145); TOTAL CARBON DIOXIDE 25.7 MMOL/L (24-32); TOTAL PROTEIN 7.4 G/DL (6.4-8.2); eGFR 59 ML/MIN
[2018-07-19] MEDS ORDERED: normal saline 1000ML IV soln IVB ONE (17:20)
[2018-07-19] MEDS ORDERED: iohexol 300mg/ml 100ml inj. ONE (17:29)
--- NOTE | 2018-07-19 18:01 | NUR ---
PT TO GO TO CT, IV STARTED
[2018-07-19] MEDS ORDERED: [UNRECOGNIZED DRUG - REMARK] PO NR (18:40)
[2018-07-19] MEDS ORDERED: clindamycin 600mg/D5W 50ml 50 ML IV ONE (20:15)
[2018-07-19] MEDS ORDERED: CLIN150C2 PO (20:41)
[2018-07-19 21:10] VITALS: BP 122/54
== END 2018-07-19 21:14 | disposition home or self-care (01) ==
LOC: ER 15:17
DX: K04.7 Periapical abscess without sinus (principal); M27.2 Inflammatory conditions of jaws; K08.89 Other specified disorders of teeth and supporting structures; K02.9 Dental caries, unspecified; I25.10 Atherosclerotic heart disease of native coronary artery without angina pectoris; E78.00 Pure hypercholesterolemia, unspecified; I10 Essential (primary) hypertension; Z95.1 Presence of aortocoronary bypass graft; Z56.0 Unemployment, unspecified; Z88.1 Allergy status to other antibiotic agents; Z79.82 Long term (current) use of aspirin; Z79.899 Other long term (current) drug therapy
CPT/HCPCS: 36415; 70487; 80053; 85025; 96365; 99284; J7030; Q9967; J3490

== ENCOUNTER 2019-06-12 12:02 | Emergency (ER) | payer MEDICARE, MEDICAID ==
[~2019-06-12] VITALS: Ht 172.7 cm; Wt 67.3 kg
[~2019-06-12 12:02] MED LIST changes: -CETI-102 PO; +CETI-90 PO
[2019-06-12] MEDS ORDERED: vancomycin 125mg/5ml ORAL solution 5ml UD bottle PO SCH (13:05)
[2019-06-12] MEDS ORDERED: VANC125C5 PO (13:12)
[2019-06-12 13:37] LABS: BASOPHILS % (AUTO) 0.5 % (0-1); EOSINOPHILS # (AUTO) 0.6 X10'3 (0-0.9); EOSINOPHILS % (AUTO) 7.2 % (0-6); HEMATOCRIT 33.1 % (42.0-52.0); HEMOGLOBIN 11.5 g/dl (14.0-17.9); LYMPHOCYTES # (AUTO) 1.3 X10'3 (1.1-4.8); LYMPHOCYTES % (AUTO) 14.7 % (21-51); MEAN CORPUSCULAR HEMOGLOBIN 31.5 PG (27.0-31.0); MEAN CORPUSCULAR HGB CONC 34.6 g/dL (33.0-36.5); MEAN CORPUSCULAR VOLUME 91.1 FL (78-98); MEAN PLATELET VOLUME 7.7 FL (7.4-10.4); MONOCYTES # (AUTO) 0.8 X10'3 (0-0.9); MONOCYTES % (AUTO) 8.8 % (2-12); NEUTROPHILS # (AUTO) 6.1 X10'3 (1.8-7.7); NEUTROPHILS % (AUTO) 68.8 % (42-75); PLATELET COUNT 319 X10'3 (140-440); RED BLOOD COUNT 3.63 X10'6 (4.70-6.10); RED CELL DISTRIBUTION WIDTH 12.6 % (11.5-14.5); WHITE BLOOD COUNT 8.9 X10'3 (4.5-11.0)
[2019-06-12 13:38] LABS: CLARITY,URINE CLEAR (Clear); COLOR,URINE YELLOW (Yellow); GLUCOSE, URINE 100 mg/dl (Neg); KETONES,URINE NEGATIVE (Neg); LEUKOCYTE ESTERASE ,URINE NEGATIVE (Neg); NITRITES, URINE NEGATIVE (Neg); OCCULT BLOOD,URINE MODERATE (Neg); PROTEIN,URINE 100 mg/dl (Neg); UROBILINOGEN,URINE 0.2 E.U/dL (0.2-1.0)
[2019-06-12 13:41] LABS: UA COLLECTION TYPE URINAL
[2019-06-12 13:49] LABS: BACTERIA,URINE FEW /HPF (Neg); SQUAMOUS EPITHELIAL CELL,UR FEW /LPF (FEW); WBC,URINE 0-4 /HPF (0-4)
[2019-06-12 13:50] LABS: ALANINE AMINOTRANSFERASE 200 U/L (12-78); ALBUMIN 2.9 G/DL (3.4-5.0); ALBUMIN/GLOBULIN RATIO 0.6 (1.1-1.5); ALKALINE PHOSPHATASE 176 IU/L (46-116); ANION GAP 8 (8-16); ASPARTATE AMINO TRANSFERASE 105 U/L (10-37); BILIRUBIN,TOTAL 0.3 MG/DL (0.1-1.0); BLOOD UREA NITROGEN 20 MG/DL (7-18); BUN/CREATININE RATIO 13.7 (5.4-32.0); CALCIUM 9.3 MG/DL (8.5-10.1); CHLORIDE 103 MMOL/L (99-107); CREATININE 1.46 MG/DL (0.60-1.10); GLUCOSE 117 MG/DL (70-104); POTASSIUM 3.7 MMOL/L (3.5-5.1); SODIUM 134 MMOL/L (135-145); TOTAL CARBON DIOXIDE 22.7 MMOL/L (24-32); TOTAL PROTEIN 7.5 G/DL (6.4-8.2); eGFR 49 ML/MIN
[2019-06-12] MEDS ORDERED: normal saline 1000ml 1,000 ML IV ONE (14:00)
[2019-06-12 14:41] VITALS: BP 123/66
== END 2019-06-12 15:56 | disposition home or self-care (01) ==
LOC: ER 12:04
DX: R33.9 Retention of urine, unspecified (principal); N13.30 Unspecified hydronephrosis; R19.7 Diarrhea, unspecified; I25.10 Atherosclerotic heart disease of native coronary artery without angina pectoris; E78.00 Pure hypercholesterolemia, unspecified; I10 Essential (primary) hypertension; F20.9 Schizophrenia, unspecified; Z95.1 Presence of aortocoronary bypass graft; Z98.890 Other specified postprocedural states; Z56.0 Unemployment, unspecified; Z88.1 Allergy status to other antibiotic agents; Z88.8 Allergy status to other drugs, medicaments and biological substances; Z79.82 Long term (current) use of aspirin; Z79.899 Other long term (current) drug therapy; Z79.2 Long term (current) use of antibiotics
CPT/HCPCS: 36415; 51702; 74176; 80053; 81001; 85025; 96360; 99285; J7030; 99284

== ENCOUNTER 2020-09-18 09:23 | Inpatient (IN) | payer MEDICARE, MEDICAID ==
[~2020-09-18] VITALS: Ht 274.3 cm; Wt 68.2 kg
[~2020-09-18 09:23] MED LIST changes: -PANT40TA4 PO; +PANT40TA54 PO
[2020-09-18 10:24] LABS: BASOPHILS % (AUTO) 0.8 % (0-1); EOSINOPHILS # (AUTO) 0.4 X10'3 (0-0.9); EOSINOPHILS % (AUTO) 8.7 % (0-6); HEMATOCRIT 30.3 % (42.0-52.0); HEMOGLOBIN 10.4 g/dl (14.0-17.9); LYMPHOCYTES # (AUTO) 0.9 X10'3 (1.1-4.8); LYMPHOCYTES % (AUTO) 18.4 % (21-51); MEAN CORPUSCULAR HEMOGLOBIN 30.9 PG (27.0-31.0); MEAN CORPUSCULAR HGB CONC 34.2 g/dL (33.0-36.5); MEAN CORPUSCULAR VOLUME 90.5 FL (78-98); MEAN PLATELET VOLUME 8.1 FL (7.4-10.4); MONOCYTES # (AUTO) 0.5 X10'3 (0-0.9); MONOCYTES % (AUTO) 11.2 % (2-12); NEUTROPHILS % (AUTO) 60.9 % (42-75); PLATELET COUNT 182 X10'3 (140-440); RED BLOOD COUNT 3.35 X10'6 (4.70-6.10); RED CELL DISTRIBUTION WIDTH 12.7 % (11.5-14.5); WHITE BLOOD COUNT 4.9 X10'3 (4.5-11.0)
[2020-09-18 10:36] LABS: ALANINE AMINOTRANSFERASE 26 U/L (12-78); ALBUMIN 3.1 G/DL (3.4-5.0); ALKALINE PHOSPHATASE 85 IU/L (46-116); ANION GAP 13 (8-16); ASPARTATE AMINO TRANSFERASE 44 U/L (10-37); BILIRUBIN,TOTAL 0.3 MG/DL (0.1-1.0); BLOOD UREA NITROGEN 37 MG/DL (7-18); BUN/CREATININE RATIO 22.8 (5.4-32.0); CALCIUM 8.5 MG/DL (8.5-10.1); CHLORIDE 92 MMOL/L (99-107); CREATININE 1.62 MG/DL (0.60-1.10); GLUCOSE 196 MG/DL (70-104); POTASSIUM 3.4 MMOL/L (3.5-5.1); SODIUM 127 MMOL/L (135-145); TOTAL CARBON DIOXIDE 22.4 MMOL/L (24-32); TOTAL PROTEIN 6.3 G/DL (6.4-8.2); eGFR 44 ML/MIN
[2020-09-18] MEDS ORDERED: normal saline 1000ML IV soln IVB ONE (11:25)
[2020-09-18] MEDS ORDERED: HYDROcodone/acetaminophen 5mg/325mg tablet PO PRN (11:35)
[2020-09-18] MEDS ORDERED: ondansetron/PF 4mg/2ml inj IV PRN (11:35)
[2020-09-18] MEDS ORDERED: potassium Cl 20 mEq SR tablet PO PRN (11:35)
[2020-09-18] MEDS ORDERED: mag hydrox/Alum hydrox/simeth 30ml oral suspension PO PRN (11:35)
[2020-09-18] MEDS ORDERED: magnesium hydroxide 30ml (MOM) UD suspension PO PRN (11:35)
[2020-09-18] MEDS ORDERED: morphine 2 MG/ML inj. syringe IV PRN (11:35)
[2020-09-18] MEDS ORDERED: acetaminophen 325mg tablet PO PRN (11:35)
[2020-09-18] MEDS ORDERED: potassium Cl 40MEQ/1/2NS 520ml 520 ML IV PRN ×2 (11:35)
[2020-09-18 12:00] LABS: CLARITY,URINE CLEAR (Clear); COLOR,URINE STRAW (Yellow); GLUCOSE, URINE 100 mg/dl (Neg); KETONES,URINE NEGATIVE (Neg); LEUKOCYTE ESTERASE ,URINE NEGATIVE (Neg); NITRITES, URINE NEGATIVE (Neg); OCCULT BLOOD,URINE SMALL (Neg); PROTEIN,URINE 100 mg/dl (Neg); UROBILINOGEN,URINE 0.2 E.U/dL (0.2-1.0)
[2020-09-18 12:13] LABS: UA COLLECTION TYPE URINAL
[2020-09-18 12:15] LABS: SQUAMOUS EPITHELIAL CELL,UR NONE SEEN /LPF (FEW)
[2020-09-18 12:17] LABS: BACTERIA,URINE FEW /HPF (Neg); RBC,URINE 0-2 /HPF (0-2); WBC,URINE 0-4 /HPF (0-4)
[2020-09-18] MEDS: normal saline 1000ml 1,000 ML IV SCH ×2 (12:32→20:42)
--- NOTE | 2020-09-18 12:54 | NUR ---
medication list faxed to pharmacy and received. brent lemos will do med [facility] southtion reconcilliation
[2020-09-18] MEDS: potassium Cl 20 mEq SR tablet PO PRN (12:57)
[2020-09-18] MEDS ORDERED: LOSA50TA64 PO (13:05)
[2020-09-18] MEDS ORDERED: LEVO50TA PO (13:05)
[2020-09-18] MEDS ORDERED: OMEP-50 PO (13:07)
[2020-09-18] MEDS ORDERED: SITA1TAB2 PO (13:08)
[2020-09-18] MEDS ORDERED: DIVA500T9 PO (13:17)
[2020-09-18] MEDS ORDERED: DIVA250T8 PO (13:17)
[2020-09-18] MEDS ORDERED: QUET400T54 PO (13:19)
[2020-09-18] MEDS ORDERED: QUET300T72 PO (13:19)
[2020-09-18] MEDS ORDERED: ROSU10TA28 PO (13:20)
[2020-09-18] MEDS ORDERED: ALBU18HF2 INH (13:20)
[2020-09-18 13:30] LABS: HEMOGLOBIN A1C 7.4 % (4.5-6.2)
[2020-09-18 13:32] LABS: OCCULT BLOOD STOOL NEGATIVE (Neg)
[2020-09-18] MEDS ORDERED: cetirizine 10mg tablet PO PRN (14:05)
[2020-09-18] MEDS ORDERED: ALBUTEROL INHALER 1 PUFF/90 MCG INHALER IH PRN (14:05)
[2020-09-18] MEDS ORDERED: albuterol 2.5 MG/3 ML nebule NEB PRN (14:35)
[2020-09-18] MEDS ORDERED: glucagon, human recombinant 1mg kit SUBCUT PRN (15:45)
[2020-09-18] MEDS ORDERED: dextrose ORAL solution 15 GM/59 ML bottle PO PRN ×2 (15:45)
[2020-09-18] MEDS ORDERED: MESSAGE TO PHARMACY PO ONE (15:45)
[2020-09-18] MEDS ORDERED: dextrose 50%-water 50ml dispensing syringe IV PRN ×2 (15:45)
[2020-09-18] MEDS: losartan 50mg tablet PO SCH (16:23)
--- NOTE | 2020-09-18 18:10 | NUR ---
Problems reprioritized. Patient report given, questions answered & plan of care reviewed with DARA Ray.
[2020-09-18 19:00] VITALS: BP 151/69
[2020-09-18] MEDS ORDERED: nitroGLYCERIN 0.4mg SUBLingual tab SL PRN (19:05)
[2020-09-18] MEDS ORDERED: aminophylline 250mg/10ml inj. IV PRN (19:05)
[2020-09-18] MEDS ORDERED: regadenoson 0.4mg/5ml syringe IV PRN (19:05)
[2020-09-18] MEDS ORDERED: metoprolol tartrate 1mg/ml inj IV PRN (19:05)
[2020-09-18] MEDS: K and/or MAG REPLACEMENT MC SCH (20:00)
[2020-09-18] MEDS: docusate sod 100mg capsule PO SCH (20:42)
[2020-09-18] MEDS: QUETIAPINE 50 MG TAB.SR.24H PO SCH (20:43)
[2020-09-18] MEDS: quetiapine fumarate ER 300mg tablet PO SCH (20:43)
[2020-09-18] MEDS: divalproex sod 250mg ER (24-hour) tablet PO SCH (20:44)
[2020-09-18] MEDS: insulin glargine (Lantus) pen - multi-dose SQ SCH (21:00)
[2020-09-18] MEDS ORDERED: non-formulary drug (Divalproex ER* (Depakote ER*) 1 TAB) PO SCH (21:00)
[2020-09-18 23:00] VITALS: BP_DIAS 69
[2020-09-19 03:00] VITALS: BP 140/63
--- NOTE | 2020-09-19 06:28 | NUR ---
Patient in room PCU 3023. I have received report from DARA Ray and had the opportunity to ask questions and assume patient care. Pt comfortably resting at change of shift. No signs of distress noted.
[2020-09-19 06:55] LABS: BASOPHILS # (AUTO) 0.1 X10'3 (0-0.2); BASOPHILS % (AUTO) 1.1 % (0-1); EOSINOPHILS # (AUTO) 1.1 X10'3 (0-0.9); HEMOGLOBIN 11.3 g/dl (14.0-17.9); LYMPHOCYTES # (AUTO) 1.5 X10'3 (1.1-4.8); LYMPHOCYTES % (AUTO) 27.4 % (21-51); MEAN CORPUSCULAR HEMOGLOBIN 31.3 PG (27.0-31.0); MEAN CORPUSCULAR HGB CONC 34.2 g/dL (33.0-36.5); MEAN CORPUSCULAR VOLUME 91.5 FL (78-98); MEAN PLATELET VOLUME 7.9 FL (7.4-10.4); MONOCYTES # (AUTO) 0.6 X10'3 (0-0.9); MONOCYTES % (AUTO) 11.4 % (2-12); NEUTROPHILS # (AUTO) 2.2 X10'3 (1.8-7.7); NEUTROPHILS % (AUTO) 40.1 % (42-75); PLATELET COUNT 212 X10'3 (140-440); RED BLOOD COUNT 3.61 X10'6 (4.70-6.10); RED CELL DISTRIBUTION WIDTH 12.8 % (11.5-14.5); WHITE BLOOD COUNT 5.5 X10'3 (4.5-11.0)
[2020-09-19 07:00] VITALS: BP 148/76
[2020-09-19 07:22] LABS: ALANINE AMINOTRANSFERASE 29 U/L (12-78); ALBUMIN 2.9 G/DL (3.4-5.0); ALBUMIN/GLOBULIN RATIO 0.9 (1.1-1.5); ALKALINE PHOSPHATASE 78 IU/L (46-116); ANION GAP 11 (8-16); ASPARTATE AMINO TRANSFERASE 36 U/L (10-37); BILIRUBIN,TOTAL 0.2 MG/DL (0.1-1.0); BLOOD UREA NITROGEN 29 MG/DL (7-18); BUN/CREATININE RATIO 20.4 (5.4-32.0); CHLORIDE 109 MMOL/L (99-107); CHOL/HDL RATIO 3.2 (0.00-4.99); CHOLESTEROL 134 MG/DL (0-200); CREATININE 1.42 MG/DL (0.60-1.10); GLUCOSE 120 MG/DL (70-104); HDL CHOLESTEROL 42 MG/DL (35-60); LDL CHOLESTEROL 58 MG/DL (50-100); SODIUM 142 MMOL/L (135-145); TOTAL CARBON DIOXIDE 22.1 MMOL/L (24-32); TOTAL PROTEIN 6.1 G/DL (6.4-8.2); TRIGLYCERIDES 158 MG/DL (20-135); eGFR 51 ML/MIN
[2020-09-19 07:32] LABS: CALCIUM 8.5 MG/DL (8.5-10.1)
[2020-09-19] MEDS: K and/or MAG REPLACEMENT MC SCH ×2 (08:00→20:00)
[2020-09-19] MEDS: linagliptin 5mg tablet PO SCH (08:18)
[2020-09-19] MEDS: atorvastatin 20mg tablet PO SCH (08:18)
[2020-09-19] MEDS: levoTHYROXINE 25mcg tablet PO SCH (08:18)
[2020-09-19] MEDS: docusate sod 100mg capsule PO SCH ×2 (08:18→20:50)
[2020-09-19] MEDS: pantoprazole 40mg Tablet.DR PO SCH (08:19)
[2020-09-19] MEDS: losartan 50mg tablet PO SCH (08:23)
[2020-09-19] MEDS: acetaminophen 325mg tablet PO PRN (08:24)
[2020-09-19] MEDS: normal saline 1000ml 1,000 ML IV SCH ×3 (08:25→20:53)
[2020-09-19 11:00] VITALS: BP 137/93
[2020-09-19] MEDS: aspirin 81mg tab.chew PO SCH (11:05)
[2020-09-19] MEDS: enoxaparin 40mg/0.4ml syringe SUBCUT SCH (11:06)
--- NOTE | 2020-09-19 14:06 | NUR ---
DM Consult: Pt A1C 7.4 hx T2DM admit for r/o SD per EMR. Written DM ed w/ RD contact information placed in pt chart. Noted BMI 9.1 error as ht incorrect at 108in at this time; would benefit from updated ht/wt this admit. Addendum: 09/19/20 at [address] Amended: Links added.
[2020-09-19 15:00] VITALS: BP 132/72
--- NOTE | 2020-09-19 15:55 | NUR ---
Paged Burton Newman [id number] Pt really anxious, can I have an order for his anxiety please? Thank you [id number]
[2020-09-19 18:00] VITALS: BP 165/84
--- NOTE | 2020-09-19 18:26 | NUR ---
Problems reprioritized. Patient report given, questions answered & plan of care reviewed with DARA Arzola. Pt sitting up in bed resting comfortably at change of shift. No signs of distress noted at this time. All pt needs met at this time.
--- NOTE | 2020-09-19 18:35 | NUR ---
Patient in room PCU 3023. I have received report from Marita, and had the opportunity to ask questions and assume patient care.
[2020-09-19] MEDS: quetiapine fumarate ER 300mg tablet PO SCH (20:51)
[2020-09-19] MEDS: QUETIAPINE 50 MG TAB.SR.24H PO SCH (20:51)
[2020-09-19] MEDS: divalproex sod 250mg ER (24-hour) tablet PO SCH (20:52)
[2020-09-19] MEDS: insulin glargine (Lantus) pen - multi-dose SQ SCH (21:00)
[2020-09-19 22:00] VITALS: BP 146/90
[2020-09-20] VITALS (12 sets, daily range): BP systolic 134–170; BP diastolic 72–96
--- NOTE | 2020-09-20 06:05 | NUR ---
Problems reprioritized. Patient report given, questions answered & plan of care reviewed with AriannaRN. Patient has NPO since midnight, scheduled for Shawanda scan this AM. AOX4. Not any distres.
--- NOTE | 2020-09-20 06:12 | NUR ---
Patient in room PCU 3023. I have received report from DARA Arzola and had the opportunity to ask questions and assume patient care. Pt sitting up on the edge of bed at change of shift, no signs of distress noted at this time.
[2020-09-20 06:51] LABS: BASOPHILS % (AUTO) 0.9 % (0-1); EOSINOPHILS # (AUTO) 1.2 X10'3 (0-0.9); EOSINOPHILS % (AUTO) 21.4 % (0-6); HEMATOCRIT 31.1 % (42.0-52.0); HEMOGLOBIN 10.7 g/dl (14.0-17.9); LYMPHOCYTES # (AUTO) 1.6 X10'3 (1.1-4.8); LYMPHOCYTES % (AUTO) 27.7 % (21-51); MEAN CORPUSCULAR HEMOGLOBIN 31.5 PG (27.0-31.0); MEAN CORPUSCULAR HGB CONC 34.5 g/dL (33.0-36.5); MEAN CORPUSCULAR VOLUME 91.5 FL (78-98); MEAN PLATELET VOLUME 7.9 FL (7.4-10.4); MONOCYTES # (AUTO) 0.5 X10'3 (0-0.9); MONOCYTES % (AUTO) 9.2 % (2-12); NEUTROPHILS # (AUTO) 2.3 X10'3 (1.8-7.7); NEUTROPHILS % (AUTO) 40.8 % (42-75); PLATELET COUNT 197 X10'3 (140-440); RED CELL DISTRIBUTION WIDTH 12.7 % (11.5-14.5); WHITE BLOOD COUNT 5.7 X10'3 (4.5-11.0)
[2020-09-20 06:56] LABS: ALANINE AMINOTRANSFERASE 30 U/L (12-78); ALBUMIN 2.7 G/DL (3.4-5.0); ALBUMIN/GLOBULIN RATIO 0.9 (1.1-1.5); ALKALINE PHOSPHATASE 72 IU/L (46-116); ANION GAP 12 (8-16); ASPARTATE AMINO TRANSFERASE 27 U/L (10-37); BILIRUBIN,TOTAL 0.2 MG/DL (0.1-1.0); BLOOD UREA NITROGEN 26 MG/DL (7-18); BUN/CREATININE RATIO 17.3 (5.4-32.0); CALCIUM 8.3 MG/DL (8.5-10.1); CHLORIDE 110 MMOL/L (99-107); GLUCOSE 135 MG/DL (70-104); POTASSIUM 3.7 MMOL/L (3.5-5.1); SODIUM 143 MMOL/L (135-145); TOTAL CARBON DIOXIDE 21.3 MMOL/L (24-32); TOTAL PROTEIN 5.7 G/DL (6.4-8.2); eGFR 48 ML/MIN
[2020-09-20] MEDS: pantoprazole 40mg Tablet.DR PO SCH (07:54)
[2020-09-20] MEDS: levoTHYROXINE 25mcg tablet PO SCH (07:54)
[2020-09-20] MEDS: linagliptin 5mg tablet PO SCH (07:54)
[2020-09-20] MEDS: docusate sod 100mg capsule PO SCH ×2 (07:54→20:31)
[2020-09-20] MEDS: atorvastatin 20mg tablet PO SCH (07:54)
[2020-09-20] MEDS: losartan 50mg tablet PO SCH (07:55)
[2020-09-20] MEDS: K and/or MAG REPLACEMENT MC SCH ×2 (08:00→20:00)
--- NOTE | 2020-09-20 08:07 | NUR ---
Paged Dr Michelle PAGER ID: [phone] MESSAGE: Burton Boykin [id number] Nuc med wants a Trop drawn before stress test, can I order a one time Trop please, thanks [phone]
[2020-09-20 08:55] LABS: TROPONIN I 0.14 NG/ML (0.0-0.05)
[2020-09-20] MEDS: enoxaparin 40mg/0.4ml syringe SUBCUT SCH (13:44)
[2020-09-20] MEDS: aspirin 81mg tab.chew PO SCH (13:44)
[2020-09-20] MEDS: normal saline 1000ml 1,000 ML IV SCH ×2 (13:45→22:26)
--- NOTE | 2020-09-20 18:23 | NUR ---
Patient in room PCU 3017. I have received report from Meilssa DIAMOND and had the opportunity to ask questions and assume patient care.
--- NOTE | 2020-09-20 18:23 | NUR ---
Problems reprioritized. Patient report given, questions answered & plan of care reviewed with DARA Baker. Pt resting comfortably at change of shift. No signs of distress noted at this time. Informed RN that pt needs occult stool if he has a BM. All pt needs met at this time.
[2020-09-20] MEDS: quetiapine fumarate ER 300mg tablet PO SCH (20:30)
[2020-09-20] MEDS: divalproex sod 250mg ER (24-hour) tablet PO SCH (20:30)
[2020-09-20] MEDS: QUETIAPINE 50 MG TAB.SR.24H PO SCH (20:30)
[2020-09-20] MEDS: insulin glargine (Lantus) pen - multi-dose SQ SCH (20:50)
[2020-09-21 01:56] VITALS: BP 156/71
[2020-09-21 06:00] VITALS: BP 136/72
--- NOTE | 2020-09-21 06:11 | NUR ---
Problems reprioritized. Patient report given, questions answered & plan of care reviewed with Jimmie DIAMOND.
[2020-09-21 07:09] LABS: BASOPHILS # (AUTO) 0.1 X10'3 (0-0.2); BASOPHILS % (AUTO) 0.9 % (0-1); EOSINOPHILS # (AUTO) 1.2 X10'3 (0-0.9); EOSINOPHILS % (AUTO) 18.2 % (0-6); HEMATOCRIT 31.3 % (42.0-52.0); HEMOGLOBIN 10.6 g/dl (14.0-17.9); LYMPHOCYTES # (AUTO) 1.8 X10'3 (1.1-4.8); LYMPHOCYTES % (AUTO) 28.4 % (21-51); MEAN CORPUSCULAR HEMOGLOBIN 31.2 PG (27.0-31.0); MEAN CORPUSCULAR VOLUME 91.8 FL (78-98); MEAN PLATELET VOLUME 7.6 FL (7.4-10.4); MONOCYTES # (AUTO) 0.5 X10'3 (0-0.9); MONOCYTES % (AUTO) 7.8 % (2-12); NEUTROPHILS # (AUTO) 2.9 X10'3 (1.8-7.7); NEUTROPHILS % (AUTO) 44.7 % (42-75); PLATELET COUNT 197 X10'3 (140-440); RED BLOOD COUNT 3.41 X10'6 (4.70-6.10); RED CELL DISTRIBUTION WIDTH 12.8 % (11.5-14.5); WHITE BLOOD COUNT 6.5 X10'3 (4.5-11.0)
[2020-09-21 07:56] LABS: ALANINE AMINOTRANSFERASE 28 U/L (12-78); ALBUMIN 2.6 G/DL (3.4-5.0); ALBUMIN/GLOBULIN RATIO 0.9 (1.1-1.5); ALKALINE PHOSPHATASE 72 IU/L (46-116); ANION GAP 13 (8-16); ASPARTATE AMINO TRANSFERASE 22 U/L (10-37); BILIRUBIN,TOTAL 0.2 MG/DL (0.1-1.0); BLOOD UREA NITROGEN 25 MG/DL (7-18); BUN/CREATININE RATIO 16.4 (5.4-32.0); CALCIUM 8.1 MG/DL (8.5-10.1); CHLORIDE 109 MMOL/L (99-107); CREATININE 1.52 MG/DL (0.60-1.10); FERRITIN 51 NG/ML (26-388); GLUCOSE 137 MG/DL (70-104); POTASSIUM 3.7 MMOL/L (3.5-5.1); SODIUM 143 MMOL/L (135-145); TOTAL CARBON DIOXIDE 21.2 MMOL/L (24-32); TOTAL PROTEIN 5.6 G/DL (6.4-8.2); eGFR 47 ML/MIN
[2020-09-21] MEDS: K and/or MAG REPLACEMENT MC SCH ×2 (08:00→20:00)
[2020-09-21] MEDS: losartan 50mg tablet PO SCH (09:16)
[2020-09-21] MEDS: levoTHYROXINE 25mcg tablet PO SCH (09:17)
[2020-09-21] MEDS: docusate sod 100mg capsule PO SCH ×2 (09:17→20:46)
[2020-09-21] MEDS: aspirin 81mg tab.chew PO SCH (09:17)
[2020-09-21] MEDS: pantoprazole 40mg Tablet.DR PO SCH (09:17)
[2020-09-21] MEDS: linagliptin 5mg tablet PO SCH (09:17)
[2020-09-21] MEDS: atorvastatin 20mg tablet PO SCH (09:17)
[2020-09-21] MEDS: enoxaparin 40mg/0.4ml syringe SUBCUT SCH (09:18)
[2020-09-21] MEDS: potassium Cl 20 mEq SR tablet PO PRN (09:18)
[2020-09-21] MEDS: normal saline 1000ml 1,000 ML IV SCH ×2 (09:35→20:44)
[2020-09-21 15:00] VITALS: BP 136/72
[2020-09-21 18:00] VITALS: BP 108/69
[2020-09-21] MEDS: QUETIAPINE 50 MG TAB.SR.24H PO SCH (20:45)
[2020-09-21] MEDS: divalproex sod 250mg ER (24-hour) tablet PO SCH (20:45)
[2020-09-21] MEDS: temazepam 15mg capsule PO PRN (20:46)
[2020-09-21] MEDS: insulin glargine (Lantus) pen - multi-dose SQ SCH (21:00)
[2020-09-21 22:00] VITALS: BP 164/85
[2020-09-21] MEDS: quetiapine fumarate ER 300mg tablet PO SCH (22:46)
--- NOTE | 2020-09-21 23:37 | NUR ---
Patient in room PCU 3017. I have received report from Jimmie DIAMOND and had the opportunity to ask questions and assume patient care.
[2020-09-22] VITALS (11 sets, daily range): BP systolic 109–164; BP diastolic 69–85
[2020-09-22] MEDS: normal saline 1000ml 1,000 ML IV SCH ×3 (05:35→23:57)
[2020-09-22] MEDS: acetaminophen 325mg tablet PO PRN (06:12)
[2020-09-22 06:43] LABS: BASOPHILS % (AUTO) 0.9 % (0-1); EOSINOPHILS % (AUTO) 18.2 % (0-6); HEMATOCRIT 36.5 % (42.0-52.0); HEMOGLOBIN 12.4 g/dl (14.0-17.9); LYMPHOCYTES # (AUTO) 1.9 X10'3 (1.1-4.8); LYMPHOCYTES % (AUTO) 35.8 % (21-51); MEAN CORPUSCULAR HEMOGLOBIN 31.2 PG (27.0-31.0); MEAN CORPUSCULAR HGB CONC 33.8 g/dL (33.0-36.5); MEAN CORPUSCULAR VOLUME 92.1 FL (78-98); MEAN PLATELET VOLUME 7.9 FL (7.4-10.4); MONOCYTES # (AUTO) 0.4 X10'3 (0-0.9); MONOCYTES % (AUTO) 7.6 % (2-12); NEUTROPHILS % (AUTO) 37.5 % (42-75); PLATELET COUNT 228 X10'3 (140-440); RED BLOOD COUNT 3.96 X10'6 (4.70-6.10); RED CELL DISTRIBUTION WIDTH 12.7 % (11.5-14.5); WHITE BLOOD COUNT 5.4 X10'3 (4.5-11.0)
[2020-09-22] MEDS: levoTHYROXINE 25mcg tablet PO SCH (07:00)
[2020-09-22 07:08] LABS: ALANINE AMINOTRANSFERASE 32 U/L (12-78); ALBUMIN 3.1 G/DL (3.4-5.0); ALBUMIN/GLOBULIN RATIO 0.9 (1.1-1.5); ALKALINE PHOSPHATASE 85 IU/L (46-116); ANION GAP 14 (8-16); ASPARTATE AMINO TRANSFERASE 21 U/L (10-37); BILIRUBIN,TOTAL 0.3 MG/DL (0.1-1.0); BLOOD UREA NITROGEN 20 MG/DL (7-18); BUN/CREATININE RATIO 14.7 (5.4-32.0); CALCIUM 8.4 MG/DL (8.5-10.1); CHLORIDE 109 MMOL/L (99-107); CREATININE 1.36 MG/DL (0.60-1.10); GLUCOSE 156 MG/DL (70-104); POTASSIUM 3.6 MMOL/L (3.5-5.1); SODIUM 145 MMOL/L (135-145); TOTAL CARBON DIOXIDE 21.7 MMOL/L (24-32); TOTAL PROTEIN 6.5 G/DL (6.4-8.2); eGFR 53 ML/MIN
[2020-09-22] MEDS: pantoprazole 40mg Tablet.DR PO SCH (07:30)
[2020-09-22 07:33] LABS: TRIIODOTHYRONINE (T3) 55 ng/dL (71-180)
[2020-09-22] MEDS: K and/or MAG REPLACEMENT MC SCH ×2 (08:00→20:00)
[2020-09-22] MEDS: atorvastatin 20mg tablet PO SCH (08:50)
[2020-09-22] MEDS: docusate sod 100mg capsule PO SCH ×2 (08:50→20:09)
[2020-09-22] MEDS ORDERED: LIDOcaine 1% (10mg/ml)w/preservative injection 20ml MDV ONE (08:54)
[2020-09-22] MEDS ORDERED: fentaNYL/PF 50MCG/1 ML 2ML syringe ONE (08:54)
[2020-09-22] MEDS ORDERED: midazolam 1 mg/ML 2ml injection ONE (08:54)
[2020-09-22] MEDS ORDERED: iohexol 350MG/ML 100ml bottle IV ONE ×2 (08:55→09:35)
[2020-09-22] MEDS ORDERED: iohexol 350 MG/ML 50ML vial IV ONE (08:55)
[2020-09-22] MEDS: losartan 50mg tablet PO SCH (10:26)
[2020-09-22] MEDS: aspirin 81mg tab.chew PO SCH (10:26)
[2020-09-22] MEDS: linagliptin 5mg tablet PO SCH (10:26)
[2020-09-22] MEDS: enoxaparin 40mg/0.4ml syringe SUBCUT SCH (10:27)
[2020-09-22] MEDS ORDERED: ondansetron/PF 4mg/2ml inj IV PRN (11:15)
[2020-09-22] MEDS ORDERED: proCHLORperazine 10 MG/2 ml inj IV PRN (11:15)
[2020-09-22] MEDS: HYDROcodone/acetaminophen 10/325mg tab PO PRN (12:18)
--- NOTE | 2020-09-22 18:52 | NUR ---
Patient in room PCU 3017. I have received report from Jimmie DIAMOND and had the opportunity to ask questions and assume patient care.
[2020-09-22] MEDS: quetiapine fumarate ER 300mg tablet PO SCH (20:09)
[2020-09-22] MEDS: QUETIAPINE 50 MG TAB.SR.24H PO SCH (20:09)
[2020-09-22] MEDS: divalproex sod 250mg ER (24-hour) tablet PO SCH (20:10)
[2020-09-22] MEDS: OXAZEpam 15mg capsule PO PRN (20:10)
[2020-09-22] MEDS: insulin glargine (Lantus) pen - multi-dose SQ SCH (21:46)
[2020-09-23] MEDS: HYDROcodone/acetaminophen 10/325mg tab PO PRN ×2 (00:27→07:12)
[2020-09-23 02:00] VITALS: BP 143/84
[2020-09-23] MEDS: acetaminophen 325mg tablet PO PRN (05:34)
[2020-09-23] MEDS: OXAZEpam 15mg capsule PO PRN ×3 (05:36→17:19)
[2020-09-23 06:00] VITALS: BP 154/85
--- NOTE | 2020-09-23 06:09 | NUR ---
Problems reprioritized. Patient report given, questions answered & plan of care reviewed with Jimmie figueroa.
[2020-09-23] MEDS: normal saline 1000ml 1,000 ML IV SCH ×3 (06:33→19:54)
[2020-09-23 07:10] LABS: BASOPHILS # (AUTO) 0.1 X10'3 (0-0.2); BASOPHILS % (AUTO) 0.8 % (0-1); EOSINOPHILS # (AUTO) 1.2 X10'3 (0-0.9); EOSINOPHILS % (AUTO) 18.3 % (0-6); HEMATOCRIT 36.2 % (42.0-52.0); HEMOGLOBIN 12.2 g/dl (14.0-17.9); LYMPHOCYTES % (AUTO) 30.9 % (21-51); MEAN CORPUSCULAR HEMOGLOBIN 31.4 PG (27.0-31.0); MEAN CORPUSCULAR HGB CONC 33.7 g/dL (33.0-36.5); MEAN CORPUSCULAR VOLUME 93.1 FL (78-98); MEAN PLATELET VOLUME 7.4 FL (7.4-10.4); MONOCYTES # (AUTO) 0.4 X10'3 (0-0.9); MONOCYTES % (AUTO) 6.3 % (2-12); NEUTROPHILS # (AUTO) 2.8 X10'3 (1.8-7.7); NEUTROPHILS % (AUTO) 43.7 % (42-75); PLATELET COUNT 219 X10'3 (140-440); RED BLOOD COUNT 3.88 X10'6 (4.70-6.10); RED CELL DISTRIBUTION WIDTH 12.8 % (11.5-14.5); WHITE BLOOD COUNT 6.4 X10'3 (4.5-11.0)
[2020-09-23] MEDS: levoTHYROXINE 25mcg tablet PO SCH (07:10)
[2020-09-23] MEDS: docusate sod 100mg capsule PO SCH ×2 (07:11→20:00)
[2020-09-23] MEDS: pantoprazole 40mg Tablet.DR PO SCH (07:11)
[2020-09-23] MEDS: linagliptin 5mg tablet PO SCH (07:11)
[2020-09-23] MEDS: losartan 50mg tablet PO SCH (07:11)
[2020-09-23] MEDS: atorvastatin 20mg tablet PO SCH (07:11)
[2020-09-23] MEDS: aspirin 81mg tab.chew PO SCH (07:11)
[2020-09-23 07:54] LABS: ALANINE AMINOTRANSFERASE 28 U/L (12-78); ALBUMIN 3.1 G/DL (3.4-5.0); ALBUMIN/GLOBULIN RATIO 0.9 (1.1-1.5); ALKALINE PHOSPHATASE 82 IU/L (46-116); ANION GAP 11 (8-16); ASPARTATE AMINO TRANSFERASE 20 U/L (10-37); BILIRUBIN,TOTAL 0.3 MG/DL (0.1-1.0); BLOOD UREA NITROGEN 19 MG/DL (7-18); CALCIUM 8.2 MG/DL (8.5-10.1); CHLORIDE 110 MMOL/L (99-107); CREATININE 1.36 MG/DL (0.60-1.10); GLUCOSE 98 MG/DL (70-104); POTASSIUM 3.5 MMOL/L (3.5-5.1); SODIUM 141 MMOL/L (135-145); TOTAL CARBON DIOXIDE 20.1 MMOL/L (24-32); TOTAL PROTEIN 6.7 G/DL (6.4-8.2); eGFR 53 ML/MIN
--- NOTE | 2020-09-23 08:49 | NUR ---
Initial: Pt admit with c/o CP, SD ruled out. Pt noted to have heavy calcification in left carotid, occluded right common femoral/iliac, and left common femoral with severe stenosis per cottage attendant note. Pt s/p cardiac catheterization placement. Pt on a CHO controlled diet documented with 100% PO intake throughout LOS meeting estimated nutrient needs. Current hx inaccurate, pt initially 68" resulting in appropriate BMI of 22.7. LBM 09/21, receiving routine bowel care. No nutrition intervention implemented at this time. Will continue to follow. Recommendations: 1) Continue CHO controlled diet 2) Monitor need for additional protein for satiety 3) Routine bowel care 4) Weekly scaled weights Addendum: 09/23/20 at [address] Amended: Links added.
[2020-09-23] MEDS: K and/or MAG REPLACEMENT MC SCH ×2 (08:55→20:00)
[2020-09-23 11:00] VITALS: BP 164/89
[2020-09-23] MEDS ORDERED: iohexol 350 MG/ML 50ML vial IV ONE (13:58)
[2020-09-23] MEDS ORDERED: iohexol 350MG/ML 100ml bottle IV ONE (13:58)
[2020-09-23] MEDS: MESSAGE TO NURSING PO SCH (14:45)
[2020-09-23 15:00] VITALS: BP 166/71
[2020-09-23] MEDS: HYDROcodone/acetaminophen 5mg/325mg tablet PO PRN (17:19)
[2020-09-23 19:00] VITALS: BP 163/83
[2020-09-23] MEDS: divalproex sod 250mg ER (24-hour) tablet PO SCH (21:00)
[2020-09-23] MEDS: QUETIAPINE 50 MG TAB.SR.24H PO SCH (21:00)
[2020-09-23] MEDS: insulin glargine (Lantus) pen - multi-dose SQ SCH (21:00)
[2020-09-23] MEDS: quetiapine fumarate ER 300mg tablet PO SCH (21:00)
[2020-09-23 23:00] VITALS: BP 157/71
[2020-09-24] VITALS (12 sets, daily range): BP systolic 135–159; BP diastolic 60–99
[2020-09-24] MEDS: normal saline 1000ml 1,000 ML IV SCH ×4 (02:33→23:44)
--- NOTE | 2020-09-24 06:19 | NUR ---
Patient in room PCU 3017. I have received report from Flor DIAMOND and had the opportunity to ask questions and assume patient care.
[2020-09-24] MEDS: levoTHYROXINE 25mcg tablet PO SCH (07:15)
[2020-09-24] MEDS: acetaminophen 325mg tablet PO PRN (07:15)
[2020-09-24] MEDS: OXAZEpam 15mg capsule PO PRN (07:15)
[2020-09-24] MEDS: K and/or MAG REPLACEMENT MC SCH ×2 (08:00→20:00)
[2020-09-24] MEDS: aspirin 81mg tab.chew PO SCH (09:02)
[2020-09-24] MEDS: losartan 50mg tablet PO SCH (09:02)
[2020-09-24] MEDS: linagliptin 5mg tablet PO SCH (09:03)
[2020-09-24] MEDS: atorvastatin 20mg tablet PO SCH (09:03)
[2020-09-24] MEDS: pantoprazole 40mg Tablet.DR PO SCH (09:03)
[2020-09-24] MEDS: docusate sod 100mg capsule PO SCH ×2 (09:03→20:06)
[2020-09-24] MEDS ORDERED: midazolam 1 mg/ML 2ml injection ONE (09:24)
[2020-09-24] MEDS ORDERED: heparin 1,000 UNITS/NS 500ml 500 ML ONE (09:24)
[2020-09-24] MEDS ORDERED: fentaNYL/PF 50MCG/1 ML 2ML syringe ONE (09:24)
[2020-09-24] MEDS ORDERED: LIDOcaine 1%/PF 5ML 10 MG/ML VIAL ONE (09:24)
[2020-09-24] MEDS ORDERED: iohexol 300mg/ml 100ml inj. ONE (09:25)
--- NOTE | 2020-09-24 09:55 | NUR ---
Pt left for Angio Pt left unit at 0955 headed for IR for BLE angiogram. Called and notified Anju (pt's daughter) per pt request.
[2020-09-24] MEDS ORDERED: heparin 1,000unit/ml 10ml vial 10 ML ONE (10:43)
--- NOTE | 2020-09-24 12:04 | NUR ---
Unable to perform noon blood glucose check due to pt at angiogram.
--- NOTE | 2020-09-24 12:15 | NUR ---
Report received from IR Pt underwent BLE andiogram. 2 illiac "kissing stents" placed. bilateral groin approach with minx closure device requiring 2 hours supine for the patient. Pt received 1.5Versed, 100mcg Fentanyl. 5000units heparin IV also reported given in IR.
--- NOTE | 2020-09-24 12:30 | NUR ---
Pt arrived back to the PCU floor at 1215. VS stable however HR lower than baseline at 52. pt monitored closely. freq. checks. condom cath placed per pt request. pt alert to voice, slightly groggy, babbling tangentially.
--- NOTE | 2020-09-24 13:28 | NUR ---
Dr. Michelle paged "RE: Burton Serra RM: [id number]: Pt returned from BLE angiogram with two stents. BP increasing now: 162/87; HR moe in low 50's. Bladder > 1500ml per bladder scanner. pt retaining urine. please advise. -Mitali #[id number]"
--- NOTE | 2020-09-24 13:30 | NUR ---
Dr. Michelle returned page Dr. Michelle notified of retention of urine and htn as well as bradycardia. new order for indwelling F/C and MD instructed nurse to give prn metoprolol. Paged Dr. Michelle again to confirm she wants metoprolol 5mg prn despite bradycardia. Addendum: 09/24/20 at 1345 by Mitali Pang RN Dr. Michelle called back and indicated for nurse not to give metoprolol due to bradycardia. new order for hydralazine 10mg IV Q4 hours prn SBP > 150. TORB.
[2020-09-24] MEDS: hydrALAZINE 20mg/ml inj. IV PRN (14:36)
[2020-09-24] MEDS: HYDROcodone/acetaminophen 10/325mg tab PO PRN ×2 (15:33→23:43)
--- NOTE | 2020-09-24 17:36 | NUR ---
no s/sx complications to groin sites continued Qhour checks without bleeding or hematomas to bilateral minx closures to groins. pt with moderate pain to groins, relieved with prn norco. pt swallowing well. pt alert to voice. needs anticipated and met. pt continue supine, with HOB at 20 degrees, watching tv.
--- NOTE | 2020-09-24 18:27 | NUR ---
Problems reprioritized. Patient report given, questions answered & plan of care reviewed with Anny DIAMOND.
[2020-09-24] MEDS: quetiapine fumarate ER 300mg tablet PO SCH ×2 (20:05→20:07)
[2020-09-24] MEDS: tamsulosin 0.4mg capsule PO SCH (20:06)
[2020-09-24] MEDS: divalproex sod 250mg ER (24-hour) tablet PO SCH (20:06)
[2020-09-24] MEDS: QUETIAPINE 50 MG TAB.SR.24H PO SCH (20:11)
[2020-09-24] MEDS: temazepam 15mg capsule PO PRN (20:12)
[2020-09-24] MEDS: insulin glargine (Lantus) pen - multi-dose SQ SCH (21:00)
--- NOTE | 2020-09-24 21:29 | NUR ---
Pt refused his Lantus. He stated that he is already taking Tradjenta and doesn't want insulin.
[2020-09-25] VITALS (9 sets, daily range): BP systolic 140–168; BP diastolic 64–87
[2020-09-25] MEDS: HYDROcodone/acetaminophen 10/325mg tab PO PRN ×3 (04:13→20:51)
[2020-09-25] MEDS: normal saline 1000ml 1,000 ML IV SCH ×2 (05:43→15:37)
--- NOTE | 2020-09-25 06:05 | NUR ---
Problems reprioritized. Patient report given, questions answered & plan of care reviewed with DARA Jasmine.
--- NOTE | 2020-09-25 06:20 | NUR ---
Patient in room PCU 3017. I have received report from Anny DIAMOND and had the opportunity to ask questions and assume patient care.
--- NOTE | 2020-09-25 06:46 | NUR ---
Patient in room PCU 3017. I have received report from leesa figueroa and had the opportunity to ask questions and assume patient care.
[2020-09-25] MEDS: MESSAGE TO NURSING PO SCH (08:00)
[2020-09-25] MEDS: K and/or MAG REPLACEMENT MC SCH ×2 (08:00→20:00)
[2020-09-25] MEDS: aspirin 81mg tab.chew PO SCH (09:24)
[2020-09-25] MEDS: pantoprazole 40mg Tablet.DR PO SCH (09:24)
[2020-09-25] MEDS: atorvastatin 20mg tablet PO SCH (09:25)
[2020-09-25] MEDS: linagliptin 5mg tablet PO SCH (09:25)
[2020-09-25] MEDS: losartan 50mg tablet PO SCH (09:25)
[2020-09-25] MEDS: docusate sod 100mg capsule PO SCH ×2 (09:25→20:39)
--- NOTE | 2020-09-25 09:45 | NUR ---
Dr. Martinez to floor Discussed pt medications with Dr. Martinez. new orders for miralax, decrease NS to 70ml/hr. Asked Dr. Martinez if he wanted patient on additional anti platelet aggregate (pt only taking ASA 81). Dr Martinez stated ASA fine for now.
[2020-09-25] MEDS: levoTHYROXINE 25mcg tablet PO SCH (12:33)
[2020-09-25] MEDS: polyethylene glycol 3350 17gm powd pack PO SCH ×2 (12:34→20:39)
--- NOTE | 2020-09-25 12:36 | NUR ---
Dr. Dhaliwal into see pt Dr. Dhaliwal saw pt, discussed Sunday surgery for "bilateral femoral plaque clean out". Confirmed with Dr. Dhaliwal that patient only on ASA 81mg anti platelet. Dr. Dhaliwal stated he would call Dr. Ray and confirm and put in the order for plavix, due to pt can have surgery on sunday on plavix. Will continue to monitor.
--- NOTE | 2020-09-25 13:37 | NUR ---
New order for plavix. New order acknowledged for plavix in addition to ASA for anti platelet aggregate. dose to be administered immediately.
[2020-09-25] MEDS: clopidogrel 75mg tablet PO SCH (13:41)
--- NOTE | 2020-09-25 17:58 | NUR ---
Orientee documentation: I have reviewed and agree with all interventions, assessments performed and documented by Ngozi DIAMOND. Orientee Medication Administration: For this medication-pass time frame, all medication were reviewed, dispensed, administered and documented per hospital policy by NGOZI DIAMOND.
--- NOTE | 2020-09-25 18:25 | NUR ---
Patient in room U 3017. I have received report from snow diamond and had the opportunity to ask questions and assume patient care. Addendum: 09/25/20 at 1830 by Parish Tovar RN Report given to Snow DIAMOND at 5895
--- NOTE | 2020-09-25 18:27 | NUR ---
Problems reprioritized. Patient report given, questions answered & plan of care reviewed with Snow DIAMOND.
[2020-09-25] MEDS: tamsulosin 0.4mg capsule PO SCH (20:39)
[2020-09-25] MEDS: quetiapine fumarate ER 300mg tablet PO SCH (20:39)
[2020-09-25] MEDS: divalproex sod 250mg ER (24-hour) tablet PO SCH (20:40)
[2020-09-25] MEDS: QUETIAPINE 50 MG TAB.SR.24H PO SCH (20:42)
[2020-09-25] MEDS: insulin glargine (Lantus) pen - multi-dose SQ SCH (21:00)
--- NOTE | 2020-09-25 21:00 | NUR ---
Pt declined blood glucose assessment and insulin administration.
[2020-09-26] MEDS: HYDROcodone/acetaminophen 10/325mg tab PO PRN ×2 (01:22→19:11)
[2020-09-26] MEDS: temazepam 15mg capsule PO PRN ×2 (01:27→23:45)
--- NOTE | 2020-09-26 01:32 | NUR ---
Pt urine output 4500 in past 6 hours. Pt eating and drinking. Per Dr. Gibson decreased pt's NS from 70 mL/hr to KVO.
[2020-09-26 06:00] VITALS: BP 136/89
--- NOTE | 2020-09-26 06:00 | NUR ---
Patient in room PCU 3017. I have received report from Snow DIAMOND and had the opportunity to ask questions and assume patient care.
--- NOTE | 2020-09-26 06:20 | NUR ---
Problems reprioritized. Patient report given, questions answered & plan of care reviewed with DARA Epps.
[2020-09-26 07:13] LABS: BASOPHILS % (AUTO) 0.5 % (0-1); EOSINOPHILS # (AUTO) 1.1 X10'3 (0-0.9); EOSINOPHILS % (AUTO) 16.7 % (0-6); HEMATOCRIT 30.1 % (42.0-52.0); HEMOGLOBIN 10.4 g/dl (14.0-17.9); LYMPHOCYTES # (AUTO) 1.2 X10'3 (1.1-4.8); LYMPHOCYTES % (AUTO) 19.2 % (21-51); MEAN CORPUSCULAR HEMOGLOBIN 31.5 PG (27.0-31.0); MEAN CORPUSCULAR HGB CONC 34.6 g/dL (33.0-36.5); MEAN CORPUSCULAR VOLUME 90.9 FL (78-98); MEAN PLATELET VOLUME 7.2 FL (7.4-10.4); MONOCYTES # (AUTO) 0.6 X10'3 (0-0.9); MONOCYTES % (AUTO) 8.5 % (2-12); NEUTROPHILS # (AUTO) 3.6 X10'3 (1.8-7.7); NEUTROPHILS % (AUTO) 55.1 % (42-75); PLATELET COUNT 213 X10'3 (140-440); RED BLOOD COUNT 3.31 X10'6 (4.70-6.10); RED CELL DISTRIBUTION WIDTH 12.5 % (11.5-14.5); WHITE BLOOD COUNT 6.5 X10'3 (4.5-11.0)
[2020-09-26] MEDS: atorvastatin 20mg tablet PO SCH (07:38)
[2020-09-26] MEDS: pantoprazole 40mg Tablet.DR PO SCH (07:38)
[2020-09-26] MEDS: clopidogrel 75mg tablet PO SCH (07:38)
[2020-09-26] MEDS: linagliptin 5mg tablet PO SCH (07:39)
[2020-09-26] MEDS: levoTHYROXINE 25mcg tablet PO SCH (07:39)
[2020-09-26] MEDS: docusate sod 100mg capsule PO SCH ×2 (07:39→20:46)
[2020-09-26] MEDS: aspirin 81mg tab.chew PO SCH (07:39)
[2020-09-26] MEDS: losartan 50mg tablet PO SCH (07:44)
[2020-09-26 07:47] LABS: ALANINE AMINOTRANSFERASE 18 U/L (12-78); ALBUMIN 2.5 G/DL (3.4-5.0); ALBUMIN/GLOBULIN RATIO 0.7 (1.1-1.5); ALKALINE PHOSPHATASE 68 IU/L (46-116); ANION GAP 13 (8-16); ASPARTATE AMINO TRANSFERASE 13 U/L (10-37); BILIRUBIN,TOTAL 0.2 MG/DL (0.1-1.0); BLOOD UREA NITROGEN 17 MG/DL (7-18); BUN/CREATININE RATIO 12.4 (5.4-32.0); CALCIUM 8.3 MG/DL (8.5-10.1); CHLORIDE 111 MMOL/L (99-107); CREATININE 1.37 MG/DL (0.60-1.10); GLUCOSE 135 MG/DL (70-104); POTASSIUM 3.9 MMOL/L (3.5-5.1); SODIUM 145 MMOL/L (135-145); TOTAL CARBON DIOXIDE 20.8 MMOL/L (24-32); TOTAL PROTEIN 5.9 G/DL (6.4-8.2); eGFR 53 ML/MIN
[2020-09-26] MEDS: K and/or MAG REPLACEMENT MC SCH ×2 (08:00→20:00)
[2020-09-26 11:00] VITALS: BP 161/90
[2020-09-26 15:00] VITALS: BP 132/84
[2020-09-26 18:00] VITALS: BP 154/80
--- NOTE | 2020-09-26 18:14 | NUR ---
Problems reprioritized. Patient report given, questions answered & plan of care reviewed with Snow DIAMOND. Patient stable at transfer of care.
--- NOTE | 2020-09-26 18:20 | NUR ---
Patient in room PCU 3017. I have received report from DARA Epps and had the opportunity to ask questions and assume patient care.
[2020-09-26] MEDS: QUETIAPINE 50 MG TAB.SR.24H PO SCH (20:45)
[2020-09-26] MEDS: divalproex sod 250mg ER (24-hour) tablet PO SCH (20:45)
[2020-09-26] MEDS: polyethylene glycol 3350 17gm powd pack PO SCH (20:46)
[2020-09-26] MEDS: quetiapine fumarate ER 300mg tablet PO SCH (20:46)
[2020-09-26] MEDS: tamsulosin 0.4mg capsule PO SCH (20:46)
[2020-09-26] MEDS: insulin glargine (Lantus) pen - multi-dose SQ SCH (21:00)
[2020-09-26] MEDS: OXAZEpam 15mg capsule PO PRN (21:03)
[2020-09-26 22:00] VITALS: BP 164/84
[2020-09-27] VITALS (13 sets, daily range): BP systolic 138–175; BP diastolic 76–93
--- NOTE | 2020-09-27 06:28 | NUR ---
Problems reprioritized. Patient report given, questions answered & plan of care reviewed with Tabby RN.
[2020-09-27 07:17] LABS: BASOPHILS % (AUTO) 0.6 % (0-1); EOSINOPHILS # (AUTO) 1.1 X10'3 (0-0.9); EOSINOPHILS % (AUTO) 14.8 % (0-6); HEMATOCRIT 32.1 % (42.0-52.0); LYMPHOCYTES # (AUTO) 1.6 X10'3 (1.1-4.8); LYMPHOCYTES % (AUTO) 20.3 % (21-51); MEAN CORPUSCULAR HEMOGLOBIN 31.1 PG (27.0-31.0); MEAN CORPUSCULAR HGB CONC 34.1 g/dL (33.0-36.5); MEAN CORPUSCULAR VOLUME 91.1 FL (78-98); MEAN PLATELET VOLUME 7.3 FL (7.4-10.4); MONOCYTES # (AUTO) 0.6 X10'3 (0-0.9); MONOCYTES % (AUTO) 7.2 % (2-12); NEUTROPHILS # (AUTO) 4.4 X10'3 (1.8-7.7); NEUTROPHILS % (AUTO) 57.1 % (42-75); PLATELET COUNT 272 X10'3 (140-440); RED BLOOD COUNT 3.53 X10'6 (4.70-6.10); RED CELL DISTRIBUTION WIDTH 12.9 % (11.5-14.5); WHITE BLOOD COUNT 7.7 X10'3 (4.5-11.0)
[2020-09-27 07:27] LABS: ALBUMIN 2.6 G/DL (3.4-5.0); ANION GAP 12 (8-16); BLOOD UREA NITROGEN 18 MG/DL (7-18); BUN/CREATININE RATIO 12.2 (5.4-32.0); CALCIUM 8.7 MG/DL (8.5-10.1); CHLORIDE 108 MMOL/L (99-107); CREATININE 1.48 MG/DL (0.60-1.10); GLUCOSE 138 MG/DL (70-104); POTASSIUM 3.7 MMOL/L (3.5-5.1); SODIUM 142 MMOL/L (135-145); TOTAL CARBON DIOXIDE 22.4 MMOL/L (24-32); eGFR 48 ML/MIN
[2020-09-27] MEDS: clopidogrel 75mg tablet PO SCH (08:00)
[2020-09-27] MEDS: docusate sod 100mg capsule PO SCH ×2 (08:00→23:37)
[2020-09-27] MEDS: linagliptin 5mg tablet PO SCH (08:00)
[2020-09-27] MEDS: K and/or MAG REPLACEMENT MC SCH ×2 (08:00→20:00)
[2020-09-27] MEDS: aspirin 81mg tab.chew PO SCH (08:00)
[2020-09-27] MEDS: pantoprazole 40mg Tablet.DR PO SCH (08:04)
[2020-09-27] MEDS: levoTHYROXINE 25mcg tablet PO SCH (08:05)
[2020-09-27] MEDS: atorvastatin 20mg tablet PO SCH (08:06)
[2020-09-27] MEDS: losartan 50mg tablet PO SCH (08:06)
[2020-09-27] MEDS ORDERED: famotidine/PF 10 mg/ml inj IV ONE (11:35)
[2020-09-27] MEDS: ringers solution, lacted 1,000 ML IV SCH (11:35)
--- NOTE | 2020-09-27 12:58 | NUR ---
Relieving primary RN and went to the the COVID antigen test and the patient informed me that they had been vaccinated. I called the OR and spoke with Andrea. Andrea informed me that if I faxed down the patient's immunization card that we didn't have to do the BUSBOY swab. I faxed down a copy to the OR and then placed a copy of the patient's immunization card in the chart as well. Primary RN, Pat, RN informed and notified.
[2020-09-27] MEDS ORDERED: heparin 10,000 units/1 ML INJ ONE (14:30)
[2020-09-27] MEDS ORDERED: LIDOcaine 1% (10mg/ml) 2ml vial ONE (14:30)
[2020-09-27] MEDS ORDERED: fentaNYL /PF 50mcg/ml 5ml ampule ONE (17:52)
[2020-09-27] MEDS ORDERED: midazolam 1 mg/ML 2ml injection ONE (17:52)
[2020-09-27] MEDS ORDERED: propofol inj 20 ML IV ONE (18:08)
[2020-09-27] MEDS ORDERED: ceFAZolin 1000mg inj ONE (18:08)
[2020-09-27] MEDS ORDERED: rocuronium 10mg/ml inj IV ONE (18:09)
[2020-09-27] MEDS ORDERED: morphine 4 MG/ML inj SYRINge IV PRN (18:15)
[2020-09-27] MEDS ORDERED: meperidine/PF 25mg/ml syringe IV PRN ×3 (18:15)
[2020-09-27] MEDS ORDERED: morphine 2 MG/ML inj. syringe IV PRN (18:15)
[2020-09-27] MEDS ORDERED: proCHLORperazine 10 MG/2 ml inj IV PRN (18:15)
[2020-09-27] MEDS ORDERED: ondansetron/PF 4mg/2ml inj IV PRN (18:15)
[2020-09-27] MEDS ORDERED: ringers solution, lacted 1,000 ML IV SCH (18:15)
--- NOTE | 2020-09-27 18:21 | NUR ---
Patient in OR. I have received report from DARA Desouza. Patient will be coming to CICU post surgery.
--- NOTE | 2020-09-27 18:21 | NUR ---
1700- Received report from Pat on patient. 1800- Patient not on unit, reported off to Dianna.
[2020-09-27] MEDS: insulin glargine (Lantus) pen - multi-dose SQ SCH (21:00)
[2020-09-27] MEDS: polyethylene glycol 3350 17gm powd pack PO SCH (21:00)
[2020-09-27] MEDS ORDERED: protamine sulfate 10mg/ml inj. ONE (21:10)
[2020-09-27 21:57] LABS: PARTIAL THROMBOPLASTIN TIME 37 SECONDS (22-32)
[2020-09-27] MEDS ORDERED: heparin 1,000unit/ml 10ml vial 10 ML ONE (22:02)
--- NOTE | 2020-09-27 22:07 | NUR ---
Received from OR via BED, accompanied by Anesthesiologist SESAR and report given by Anesthesiolgist. PT. ARRIVED AT PACU. 10 L O2 VIA FACE MASK. VSS. ART. LINE R. WRIST, CDI L. 20 G IV IN L. WRIST CDI. STUART CATH DRAINING TO GRAVITY. CLEAR YELLOW URINE NOTED. B. GROIN WITH PROVENA DRESSING INTACT. WOUND VAC AT 75 MMHG. NO DRAINAGE MNOTED. PT. ALERT, ABLE TO ANSWER QUESTIONS. PALPABLE PULSES IN BILATERL LE. STRONG. PULSES PALPABLE B. RADIAL. SENSATION AND MOVEMENT INTACT IN ALL EXTREMITIES. SCD'S IN PLACE. LR INFUSING AT 100 ML/HR. Addendum: 09/27/20 at 5924 by Julissa Galindo RN Amended: Links added.
[2020-09-27] MEDS ORDERED: HYDROcodone/acetaminophen 10/325mg tab PO PRN (22:30)
--- NOTE | 2020-09-27 22:55 | NUR ---
Patient in recovery room. I have received report from DARA Costa and had the opportunity to ask questions. Will be transferred to ICU bed 2012 when pain is controlled.
--- NOTE | 2020-09-27 23:07 | NUR ---
PATIENT HAS MET ALL CRITERIA FOR TRANSFER TO THE CICU FLOOR. VSS. DRESSINGS INTACT B. GROIN WOUND VAC CONTINUES AT 75 MMHG. NO DRAINAGE NOTED. REPORT OF BURNING PAIN. 2 DOSE DEMEROL 25 MG AND 1 DOSE MORPHINE 4 MG. SOME RELIEF NOTED. FC DRAINING TO GRAVITY. ART LINE CDI AND FUNCTIONING. IV IN L. WRIST WITH LR AT 75 ML/HR. BED LOW, CALL LIGHT PRESENT AND 2 RAILS UP. DARA CONDON PRESENT TO ACCEPT CARE OF PATIENT AND REPORT HAD BEEN CALLED PRIOR TO TRANSFER. ALL QUESTIONS ANSWERED TO ACCEPTING RN. Addendum: 09/27/20 at 2469 by Julissa Galindo RN Amended: Links added.
--- NOTE | 2020-09-27 23:15 | NUR ---
Patient arrived from OR accompanied by DARA Costa and DARA Stephen, organ recovery coordinator's. Patient is awake and alert x4. Patient has compliant of 10/10 pain to his left groin area with "some pain" to his right groin. Patient with bilateral Provena wound vac's in place to groin area over left and right femoral arteries. Dressing is compressed, clean and dry. Zero drainage noted in pump. Provena pump at 75 mmHg. Patient also complains of pain to his right wrist. Arterial line to right wrist. Patient placed on bedside ICU monitor, arterial line zeroed and transduced. Patient appears very anxious. When asked about anxiety patient agrees that he feels very anxious. Patient is in a sinus rhythm with occasional PVC's on the monitor. IV access is a 20 ga to the left forearm, currently infusing LR at 100 ml/hr. Hanson catheter in place with good urine output. Alida is currently on oxygen at 2 lpm via nasal cannula.
[2020-09-27] MEDS: HYDROcodone/acetaminophen 10/325mg tab PO PRN (23:25)
[2020-09-27] MEDS: QUETIAPINE 50 MG TAB.SR.24H PO SCH (23:36)
[2020-09-27] MEDS: quetiapine fumarate ER 300mg tablet PO SCH (23:37)
[2020-09-27] MEDS: divalproex sod 250mg ER (24-hour) tablet PO SCH (23:37)
[2020-09-27] MEDS: tamsulosin 0.4mg capsule PO SCH (23:37)
[2020-09-27] MEDS: potassium CL 20mEq in D5-1/2NS 1,000 ML IV SCH (23:49)
[2020-09-28] VITALS (20 sets, daily range): BP systolic 98–159; BP diastolic 51–98
[2020-09-28] MEDS: OXAZEpam 15mg capsule PO PRN ×2 (00:01→21:44)
[2020-09-28] MEDS: clindamycin 600mg/D5W 50ml 50 ML IV SCH ×4 (02:03→19:42)
[2020-09-28] MEDS: temazepam 15mg capsule PO PRN (02:03)
[2020-09-28 03:43] LABS: BASOPHILS % (AUTO) 0.2 % (0-1); EOSINOPHILS % (AUTO) 0.2 % (0-6); HEMATOCRIT 24.5 % (42.0-52.0); HEMOGLOBIN 8.5 g/dl (14.0-17.9); LYMPHOCYTES # (AUTO) 0.4 X10'3 (1.1-4.8); LYMPHOCYTES % (AUTO) 6.2 % (21-51); MEAN CORPUSCULAR HEMOGLOBIN 31.8 PG (27.0-31.0); MEAN CORPUSCULAR HGB CONC 34.9 g/dL (33.0-36.5); MEAN CORPUSCULAR VOLUME 91.1 FL (78-98); MEAN PLATELET VOLUME 7.5 FL (7.4-10.4); MONOCYTES # (AUTO) 0.3 X10'3 (0-0.9); MONOCYTES % (AUTO) 5.1 % (2-12); NEUTROPHILS # (AUTO) 5.5 X10'3 (1.8-7.7); NEUTROPHILS % (AUTO) 88.3 % (42-75); PLATELET COUNT 249 X10'3 (140-440); RED BLOOD COUNT 2.68 X10'6 (4.70-6.10); RED CELL DISTRIBUTION WIDTH 12.9 % (11.5-14.5); WHITE BLOOD COUNT 6.2 X10'3 (4.5-11.0)
[2020-09-28 03:45] LABS: ALBUMIN 2.8 G/DL (3.4-5.0); ANION GAP 13 (8-16); BLOOD UREA NITROGEN 22 MG/DL (7-18); CALCIUM 8.3 MG/DL (8.5-10.1); CHLORIDE 104 MMOL/L (99-107); CREATININE 1.57 MG/DL (0.60-1.10); GLUCOSE 257 MG/DL (70-104); POTASSIUM 3.6 MMOL/L (3.5-5.1); SODIUM 137 MMOL/L (135-145); TOTAL CARBON DIOXIDE 19.6 MMOL/L (24-32); eGFR 45 ML/MIN
[2020-09-28] MEDS: potassium CL 20mEq in D5-1/2NS 1,000 ML IV SCH ×2 (06:30→08:42)
--- NOTE | 2020-09-28 06:41 | NUR ---
Patient was awake and anxious throughout the shift. At about 0500 patient appeared to be sleeping soundly. No issues with wound vac or surgery site noted.
--- NOTE | 2020-09-28 06:42 | NUR ---
Problems reprioritized. Patient report given, questions answered & plan of care reviewed with DARA Albarado.
[2020-09-28] MEDS: ringers solution, lacted 1,000 ML IV SCH (07:35)
[2020-09-28] MEDS: K and/or MAG REPLACEMENT MC SCH ×2 (08:00→20:00)
[2020-09-28] MEDS: losartan 50mg tablet PO SCH (08:41)
[2020-09-28] MEDS: clopidogrel 75mg tablet PO SCH (08:41)
[2020-09-28] MEDS: docusate sod 100mg capsule PO SCH ×2 (08:41→19:46)
[2020-09-28] MEDS: linagliptin 5mg tablet PO SCH (08:41)
[2020-09-28] MEDS: aspirin 81mg tab.chew PO SCH (08:41)
[2020-09-28] MEDS: pantoprazole 40mg Tablet.DR PO SCH (08:45)
[2020-09-28] MEDS: levoTHYROXINE 25mcg tablet PO SCH (08:45)
[2020-09-28] MEDS: atorvastatin 20mg tablet PO SCH (08:45)
[2020-09-28] MEDS: insulin Lispro (HumaLOG) vial - multi-dose SQ SCH ×2 (13:49→19:56)
--- NOTE | 2020-09-28 15:53 | NUR ---
Received report from DARA Albarado from CICU. Awaiting patient arrival to room 3012C.
--- NOTE | 2020-09-28 16:29 | NUR ---
Patient arrived from CICU via wheelchair and ambulated from the wheelchair to the bed. Vital signs are temp 97.8, BP 138/68, HR 86, RR 16, pain 7/10 from groin. Groin site intact with provena dressings hooked to wound vac. Bed locked and lowered, nonskid socks on, call light in reach, frequent rounding and in no acute distress.
--- NOTE | 2020-09-28 16:36 | NUR ---
Report given to DARA Frost. ART line and parish d/c'd per Dr. Gutierrez. Dr. Gutierrez also stated pt could walk around as much as he wanted and that he can eat a regular diet. Tele monitor placed on pt in CICU. Pt saline locked. Transferred via wheelchair which he was able to get into himself. Pt has all belongings, including belongings left on tele unit from previous stay on tele floor. Receiving RN at bedside upon tsfr. Pt able to get into bed by himself with little assistance.
--- NOTE | 2020-09-28 18:05 | NUR ---
Problems reprioritized. Patient report given, questions answered & plan of care reviewed with DARA Oliver. Patient stable at transfer of care.
--- NOTE | 2020-09-28 18:15 | NUR ---
Patient in room PCU 3012. I have received report from DARA Frost and had the opportunity to ask questions and assume patient care.
[2020-09-28] MEDS: magnesium hydroxide 30ml (MOM) UD suspension PO SCH (19:46)
[2020-09-28] MEDS: insulin glargine (Lantus) pen - multi-dose SQ SCH (21:28)
[2020-09-28] MEDS: tamsulosin 0.4mg capsule PO SCH (21:29)
[2020-09-28] MEDS: quetiapine fumarate ER 300mg tablet PO SCH (21:30)
[2020-09-28] MEDS: divalproex sod 250mg ER (24-hour) tablet PO SCH (21:30)
[2020-09-28] MEDS: polyethylene glycol 3350 17gm powd pack PO SCH (21:31)
[2020-09-28] MEDS: QUETIAPINE 50 MG TAB.SR.24H PO SCH (21:31)
[2020-09-28] MEDS: HYDROcodone/acetaminophen 10/325mg tab PO PRN (21:43)
[2020-09-29 02:00] VITALS: BP 102/64
[2020-09-29] MEDS: clindamycin 600mg/D5W 50ml 50 ML IV SCH ×4 (02:00→20:26)
--- NOTE | 2020-09-29 06:14 | NUR ---
Problems reprioritized. Patient report given, questions answered & plan of care reviewed with DARA Bartlett.
--- NOTE | 2020-09-29 07:04 | NUR ---
Patient in room MED 312. I have received report from Melody DIAMOND and had the opportunity to ask questions and assume patient care.
--- NOTE | 2020-09-29 07:09 | NUR ---
Problems reprioritized. Patient report given, questions answered & plan of care reviewed with Pat RN. Patient stable at transfer of care.
[2020-09-29 07:49] VITALS: BP 102/64
[2020-09-29] MEDS: K and/or MAG REPLACEMENT MC SCH ×2 (08:00→20:00)
[2020-09-29 08:08] LABS: BASOPHILS % (AUTO) 0.4 % (0-1); EOSINOPHILS # (AUTO) 0.3 X10'3 (0-0.9); EOSINOPHILS % (AUTO) 4.5 % (0-6); HEMATOCRIT 22.5 % (42.0-52.0); HEMOGLOBIN 7.6 g/dl (14.0-17.9); LYMPHOCYTES # (AUTO) 1.1 X10'3 (1.1-4.8); LYMPHOCYTES % (AUTO) 16.3 % (21-51); MEAN CORPUSCULAR HEMOGLOBIN 31.2 PG (27.0-31.0); MEAN CORPUSCULAR HGB CONC 33.8 g/dL (33.0-36.5); MEAN CORPUSCULAR VOLUME 92.3 FL (78-98); MEAN PLATELET VOLUME 7.2 FL (7.4-10.4); MONOCYTES # (AUTO) 0.9 X10'3 (0-0.9); MONOCYTES % (AUTO) 13.3 % (2-12); NEUTROPHILS # (AUTO) 4.5 X10'3 (1.8-7.7); NEUTROPHILS % (AUTO) 65.5 % (42-75); PLATELET COUNT 274 X10'3 (140-440); RED BLOOD COUNT 2.44 X10'6 (4.70-6.10); RED CELL DISTRIBUTION WIDTH 12.5 % (11.5-14.5); WHITE BLOOD COUNT 6.9 X10'3 (4.5-11.0)
[2020-09-29 08:09] LABS: ALBUMIN 2.5 G/DL (3.4-5.0); ANION GAP 11 (8-16); BLOOD UREA NITROGEN 20 MG/DL (7-18); BUN/CREATININE RATIO 12.5 (5.4-32.0); CHLORIDE 106 MMOL/L (99-107); GLUCOSE 151 MG/DL (70-104); SODIUM 142 MMOL/L (135-145); TOTAL CARBON DIOXIDE 24.7 MMOL/L (24-32); eGFR 44 ML/MIN
[2020-09-29] MEDS: pantoprazole 40mg Tablet.DR PO SCH (08:18)
[2020-09-29] MEDS: losartan 50mg tablet PO SCH (08:19)
[2020-09-29] MEDS: clopidogrel 75mg tablet PO SCH (08:19)
[2020-09-29] MEDS: magnesium hydroxide 30ml (MOM) UD suspension PO SCH ×2 (08:20→20:27)
[2020-09-29] MEDS: atorvastatin 20mg tablet PO SCH (08:20)
[2020-09-29] MEDS: docusate sod 100mg capsule PO SCH ×2 (08:20→20:27)
[2020-09-29] MEDS: aspirin 81mg tab.chew PO SCH (08:20)
[2020-09-29] MEDS: levoTHYROXINE 25mcg tablet PO SCH (08:35)
[2020-09-29] MEDS: OXAZEpam 15mg capsule PO PRN (09:10)
[2020-09-29] MEDS: insulin Lispro (HumaLOG) vial - multi-dose SQ SCH ×2 (09:46→20:57)
--- NOTE | 2020-09-29 10:42 | NUR ---
Reassessment: Pt s/p bilat femoral endarterectomy 09/27. Pt documented with a wound VAC in place. PO diet was advanced from liquids to CHO controlled though noted pt continues receiving liquid trays, d/w dietary to send CHO control meals per rx. Pt continues with 100% PO intake throughout LOS. D/w dietary to send double protein with meals for satiety and increased protein needs. LBM 09/26, previously without a BM since 09/22. Pt receiving routine Colace and Miralax. Routine MoM added to med list 09/28. D/w dietary to send power pudding with next meal to further assist with bowel regularity. Will continue to follow. Recommendations: 1) Continue CHO controlled diet 2) Double eggs WB, double meat BIDLD 3) Routine bowel care 4) Weekly scaled weights Addendum: 09/29/20 at [address] Amended: Links added.
[2020-09-29 11:00] VITALS: BP 121/74
[2020-09-29] MEDS: HYDROcodone/acetaminophen 10/325mg tab PO PRN (11:00)
[2020-09-29 18:00] VITALS: BP 147/82
[2020-09-29] MEDS: polyethylene glycol 3350 17gm powd pack PO SCH (20:26)
[2020-09-29] MEDS: QUETIAPINE 50 MG TAB.SR.24H PO SCH (20:27)
[2020-09-29] MEDS: quetiapine fumarate ER 300mg tablet PO SCH (20:27)
[2020-09-29] MEDS: tamsulosin 0.4mg capsule PO SCH (20:28)
[2020-09-29] MEDS: divalproex sod 250mg ER (24-hour) tablet PO SCH (20:28)
[2020-09-29 22:00] VITALS: BP 154/82
[2020-09-29] MEDS: insulin glargine (Lantus) pen - multi-dose SQ SCH (22:29)
[2020-09-30] MEDS: temazepam 15mg capsule PO PRN ×2 (00:08→23:45)
[2020-09-30] MEDS: HYDROcodone/acetaminophen 5mg/325mg tablet PO PRN (00:08)
[2020-09-30 02:00] VITALS: BP 150/88
[2020-09-30] MEDS: clindamycin 600mg/D5W 50ml 50 ML IV SCH ×4 (02:19→20:35)
[2020-09-30] MEDS: OXAZEpam 15mg capsule PO PRN (02:19)
--- NOTE | 2020-09-30 06:25 | NUR ---
Patient in room MED 312. I have received report from DARA Sampson and had the opportunity to ask questions and assume patient care.
--- NOTE | 2020-09-30 06:31 | NUR ---
Problems reprioritized. Patient report given, questions answered & plan of care reviewed with DARA MANUEL.
[2020-09-30 06:43] LABS: BASOPHILS % (AUTO) 0.5 % (0-1); EOSINOPHILS # (AUTO) 0.5 X10'3 (0-0.9); EOSINOPHILS % (AUTO) 7.5 % (0-6); HEMOGLOBIN 7.2 g/dl (14.0-17.9); LYMPHOCYTES # (AUTO) 1.4 X10'3 (1.1-4.8); LYMPHOCYTES % (AUTO) 21.1 % (21-51); MEAN CORPUSCULAR HEMOGLOBIN 31.9 PG (27.0-31.0); MEAN CORPUSCULAR HGB CONC 34.9 g/dL (33.0-36.5); MEAN CORPUSCULAR VOLUME 91.3 FL (78-98); MEAN PLATELET VOLUME 7.1 FL (7.4-10.4); MONOCYTES # (AUTO) 0.9 X10'3 (0-0.9); MONOCYTES % (AUTO) 13.6 % (2-12); NEUTROPHILS # (AUTO) 3.7 X10'3 (1.8-7.7); NEUTROPHILS % (AUTO) 57.3 % (42-75); PLATELET COUNT 272 X10'3 (140-440); RED BLOOD COUNT 2.25 X10'6 (4.70-6.10); RED CELL DISTRIBUTION WIDTH 12.6 % (11.5-14.5); WHITE BLOOD COUNT 6.5 X10'3 (4.5-11.0)
[2020-09-30 06:48] LABS: ALBUMIN 2.3 G/DL (3.4-5.0); ANION GAP 6 (8-16); BLOOD UREA NITROGEN 24 MG/DL (7-18); BUN/CREATININE RATIO 14.5 (5.4-32.0); CALCIUM 8.1 MG/DL (8.5-10.1); CHLORIDE 105 MMOL/L (99-107); CREATININE 1.66 MG/DL (0.60-1.10); GLUCOSE 174 MG/DL (70-104); POTASSIUM 4.1 MMOL/L (3.5-5.1); SODIUM 137 MMOL/L (135-145); TOTAL CARBON DIOXIDE 25.9 MMOL/L (24-32); eGFR 42 ML/MIN
--- NOTE | 2020-09-30 06:49 | NUR ---
Patient in room MED 312. I have received report from DARA CHU, and had the opportunity to ask questions and assume patient care.
[2020-09-30 07:00] VITALS: BP 116/69
[2020-09-30 07:03] LABS: HEMATOCRIT 20.6 % (42.0-52.0)
--- NOTE | 2020-09-30 07:11 | NUR ---
PAGE TO [facility] 312, MICHELLE CRITICAL HGB 7.2, HCT 20.6, THANKS, ARMANDO Khan 0021.
[2020-09-30] MEDS: levoTHYROXINE 25mcg tablet PO SCH (07:36)
[2020-09-30] MEDS: pantoprazole 40mg Tablet.DR PO SCH (07:36)
[2020-09-30] MEDS: K and/or MAG REPLACEMENT MC SCH ×2 (08:00→20:00)
[2020-09-30] MEDS: linagliptin 5mg tablet PO SCH ×2 (08:00→08:28)
[2020-09-30] MEDS: docusate sod 100mg capsule PO SCH ×2 (08:28→20:34)
[2020-09-30] MEDS: atorvastatin 20mg tablet PO SCH (08:28)
[2020-09-30] MEDS: aspirin 81mg tab.chew PO SCH (08:28)
[2020-09-30] MEDS: clopidogrel 75mg tablet PO SCH (08:28)
[2020-09-30] MEDS: magnesium hydroxide 30ml (MOM) UD suspension PO SCH ×2 (08:30→20:34)
[2020-09-30] MEDS: losartan 50mg tablet PO SCH (09:04)
[2020-09-30] MEDS: insulin Lispro (HumaLOG) vial - multi-dose SQ SCH ×3 (10:22→19:58)
[2020-09-30 11:00] VITALS: BP 108/65
[2020-09-30 15:00] VITALS: BP 123/69
[2020-09-30 17:30] LABS: OCCULT BLOOD STOOL NEGATIVE (Neg)
[2020-09-30 18:00] VITALS: BP 118/77
--- NOTE | 2020-09-30 18:22 | NUR ---
Problems reprioritized. Patient report given, questions answered & plan of care reviewed with DARA YU.
--- NOTE | 2020-09-30 18:34 | NUR ---
Orientee documentation: I have reviewed and agree with all interventions, assessments performed and documented by DARA Rodriguez.
[2020-09-30 18:44] LABS: HEMATOCRIT 23.1 % (42.0-52.0); HEMOGLOBIN 7.9 g/dl (14.0-17.9); MEAN CORPUSCULAR HEMOGLOBIN 31.1 PG (27.0-31.0); MEAN CORPUSCULAR VOLUME 91.6 FL (78-98); PLATELET COUNT 336 X10'3 (140-440); RED BLOOD COUNT 2.53 X10'6 (4.70-6.10); RED CELL DISTRIBUTION WIDTH 12.5 % (11.5-14.5); WHITE BLOOD COUNT 6.8 X10'3 (4.5-11.0)
[2020-09-30] MEDS: tamsulosin 0.4mg capsule PO SCH (20:34)
[2020-09-30] MEDS: quetiapine fumarate ER 300mg tablet PO SCH (20:35)
[2020-09-30] MEDS: QUETIAPINE 50 MG TAB.SR.24H PO SCH (20:35)
[2020-09-30] MEDS: divalproex sod 250mg ER (24-hour) tablet PO SCH (20:36)
[2020-09-30] MEDS: polyethylene glycol 3350 17gm powd pack PO SCH (20:44)
[2020-09-30 22:00] VITALS: BP 137/75
[2020-09-30] MEDS: insulin glargine (Lantus) pen - multi-dose SQ SCH (22:22)
[2020-10-01] VITALS (9 sets, daily range): BP systolic 73–139; BP diastolic 42–86
[2020-10-01] MEDS: clindamycin 600mg/D5W 50ml 50 ML IV SCH ×4 (01:05→19:52)
[2020-10-01 06:31] LABS: BASOPHILS % (AUTO) 0.7 % (0-1); EOSINOPHILS # (AUTO) 0.5 X10'3 (0-0.9); EOSINOPHILS % (AUTO) 8.6 % (0-6); HEMATOCRIT 22.7 % (42.0-52.0); HEMOGLOBIN 7.9 g/dl (14.0-17.9); LYMPHOCYTES # (AUTO) 1.2 X10'3 (1.1-4.8); LYMPHOCYTES % (AUTO) 19.2 % (21-51); MEAN CORPUSCULAR HEMOGLOBIN 31.8 PG (27.0-31.0); MEAN CORPUSCULAR HGB CONC 34.9 g/dL (33.0-36.5); MEAN PLATELET VOLUME 7.1 FL (7.4-10.4); MONOCYTES # (AUTO) 0.7 X10'3 (0-0.9); MONOCYTES % (AUTO) 11.9 % (2-12); NEUTROPHILS # (AUTO) 3.7 X10'3 (1.8-7.7); NEUTROPHILS % (AUTO) 59.6 % (42-75); PLATELET COUNT 378 X10'3 (140-440); RED BLOOD COUNT 2.49 X10'6 (4.70-6.10); RED CELL DISTRIBUTION WIDTH 12.4 % (11.5-14.5); WHITE BLOOD COUNT 6.2 X10'3 (4.5-11.0)
--- NOTE | 2020-10-01 06:35 | NUR ---
Patient in room MED 312. I have received report from DARA CHU, and had the opportunity to ask questions and assume patient care.
--- NOTE | 2020-10-01 06:36 | NUR ---
Problems reprioritized. Patient report given, questions answered & plan of care reviewed with DARA MANUEL.
[2020-10-01 06:38] LABS: ALBUMIN 2.4 G/DL (3.4-5.0); ANION GAP 6 (8-16); BLOOD UREA NITROGEN 30 MG/DL (7-18); BUN/CREATININE RATIO 14.5 (5.4-32.0); CALCIUM 8.2 MG/DL (8.5-10.1); CHLORIDE 104 MMOL/L (99-107); CREATININE 2.07 MG/DL (0.60-1.10); GLUCOSE 170 MG/DL (70-104); POTASSIUM 4.6 MMOL/L (3.5-5.1); SODIUM 137 MMOL/L (135-145); TOTAL CARBON DIOXIDE 26.6 MMOL/L (24-32); eGFR 33 ML/MIN
--- NOTE | 2020-10-01 06:38 | NUR ---
Patient in room MED 312. I have received report from DARA Sampson and had the opportunity to ask questions and assume patient care.
[2020-10-01] MEDS: docusate sod 100mg capsule PO SCH ×2 (07:34→19:52)
[2020-10-01] MEDS: clopidogrel 75mg tablet PO SCH (07:34)
[2020-10-01] MEDS: magnesium hydroxide 30ml (MOM) UD suspension PO SCH ×2 (07:34→20:00)
[2020-10-01] MEDS: levoTHYROXINE 25mcg tablet PO SCH (07:34)
[2020-10-01] MEDS: aspirin 81mg tab.chew PO SCH (07:34)
[2020-10-01] MEDS: losartan 50mg tablet PO SCH (07:37)
[2020-10-01] MEDS: pantoprazole 40mg Tablet.DR PO SCH (07:37)
[2020-10-01] MEDS: atorvastatin 20mg tablet PO SCH (07:37)
[2020-10-01] MEDS: K and/or MAG REPLACEMENT MC SCH ×2 (08:00→19:52)
--- NOTE | 2020-10-01 09:15 | NUR ---
Re: Burton Serra. Room: 312. Rapid called on Pt. Infusing 500ml saline now. -Bernard ACCE #[id number] -Dr. edmonds paged for Rapid called on Pt.
--- NOTE | 2020-10-01 09:23 | NUR ---
Pt C/O dizzyness and lightheaded. Bp dropped to 70's/40's. Paged Dr and RR - infused 500 NS bolus per protocol. Multiple manual pressure were taken with low BP. After about 250 NS infused pt started feeling better and RR was cancelled. Neuro check was completed with no deficits. Pt resting comfortably in bed after full infusion. Will continue to monitor.
[2020-10-01] MEDS ORDERED: normal saline 500ml IV soln 500 ML IV ONE (09:30)
[2020-10-01] MEDS: linagliptin 5mg tablet PO SCH (14:31)
[2020-10-01] MEDS: insulin Lispro (HumaLOG) vial - multi-dose SQ SCH ×2 (14:37→19:48)
[2020-10-01] MEDS: acetaminophen 325mg tablet PO PRN (14:45)
[2020-10-01] MEDS: normal saline 1000ml 1,000 ML IV SCH (18:15)
--- NOTE | 2020-10-01 18:33 | NUR ---
Problems reprioritized. Patient report given, questions answered & plan of care reviewed with DARA GUTIERREZ.
--- NOTE | 2020-10-01 18:34 | NUR ---
Orientee documentation: I have reviewed and agree with all interventions, assessments performed and documented by DARA Rodriguez.
--- NOTE | 2020-10-01 19:23 | NUR ---
Patient in room MED 312. I have received report from MAR DIAMOND and had the opportunity to ask questions and assume patient care.
[2020-10-01] MEDS: OXAZEpam 15mg capsule PO PRN (19:50)
[2020-10-01] MEDS: tamsulosin 0.4mg capsule PO SCH (19:50)
[2020-10-01] MEDS: quetiapine fumarate ER 300mg tablet PO SCH (19:51)
[2020-10-01] MEDS: temazepam 15mg capsule PO PRN (19:52)
[2020-10-01] MEDS: QUETIAPINE 50 MG TAB.SR.24H PO SCH (20:01)
[2020-10-01] MEDS: divalproex sod 250mg ER (24-hour) tablet PO SCH (20:02)
[2020-10-01] MEDS: polyethylene glycol 3350 17gm powd pack PO SCH (21:00)
[2020-10-01] MEDS: HYDROcodone/acetaminophen 10/325mg tab PO PRN (21:16)
[2020-10-01] MEDS: insulin glargine (Lantus) pen - multi-dose SQ SCH (22:13)
[2020-10-02] MEDS: normal saline 1000ml 1,000 ML IV SCH ×2 (02:28→10:51)
[2020-10-02] MEDS: clindamycin 600mg/D5W 50ml 50 ML IV SCH ×4 (03:30→20:56)
[2020-10-02] MEDS: HYDROcodone/acetaminophen 10/325mg tab PO PRN ×2 (03:39→19:43)
--- NOTE | 2020-10-02 06:35 | NUR ---
Patient in room MED 312. I have received report from DARA Trivedi and had the opportunity to ask questions and assume patient care.
--- NOTE | 2020-10-02 06:36 | NUR ---
Patient in room MED 312. I have received report from DARA GUTIERREZ, and had the opportunity to ask questions and assume patient care.
--- NOTE | 2020-10-02 06:43 | NUR ---
Problems reprioritized. Patient report given, questions answered & plan of care reviewed with MAR DIAMOND.
[2020-10-02 06:55] VITALS: BP 143/76
[2020-10-02] MEDS: K and/or MAG REPLACEMENT MC SCH ×2 (08:00→20:00)
[2020-10-02] MEDS: pantoprazole 40mg Tablet.DR PO SCH (08:13)
[2020-10-02] MEDS: aspirin 81mg tab.chew PO SCH (08:13)
[2020-10-02] MEDS: docusate sod 100mg capsule PO SCH ×2 (08:13→20:00)
[2020-10-02] MEDS: clopidogrel 75mg tablet PO SCH (08:13)
[2020-10-02] MEDS: atorvastatin 20mg tablet PO SCH (08:13)
[2020-10-02] MEDS: magnesium hydroxide 30ml (MOM) UD suspension PO SCH ×2 (08:16→20:00)
[2020-10-02] MEDS: linagliptin 5mg tablet PO SCH (08:16)
[2020-10-02] MEDS: losartan 25mg tablet PO SCH (08:16)
[2020-10-02] MEDS: levoTHYROXINE 25mcg tablet PO SCH (08:23)
[2020-10-02 09:23] LABS: BASOPHILS % (AUTO) 0.5 % (0-1); EOSINOPHILS # (AUTO) 0.5 X10'3 (0-0.9); EOSINOPHILS % (AUTO) 7.4 % (0-6); HEMATOCRIT 22.9 % (42.0-52.0); HEMOGLOBIN 7.9 g/dl (14.0-17.9); LYMPHOCYTES # (AUTO) 1.3 X10'3 (1.1-4.8); LYMPHOCYTES % (AUTO) 18.3 % (21-51); MEAN CORPUSCULAR HEMOGLOBIN 31.6 PG (27.0-31.0); MEAN CORPUSCULAR HGB CONC 34.6 g/dL (33.0-36.5); MEAN CORPUSCULAR VOLUME 91.4 FL (78-98); MEAN PLATELET VOLUME 6.5 FL (7.4-10.4); MONOCYTES # (AUTO) 0.7 X10'3 (0-0.9); MONOCYTES % (AUTO) 9.3 % (2-12); NEUTROPHILS # (AUTO) 4.6 X10'3 (1.8-7.7); NEUTROPHILS % (AUTO) 64.5 % (42-75); PLATELET COUNT 435 X10'3 (140-440); RED CELL DISTRIBUTION WIDTH 12.8 % (11.5-14.5); WHITE BLOOD COUNT 7.2 X10'3 (4.5-11.0)
[2020-10-02 09:27] LABS: ALBUMIN 2.7 G/DL (3.4-5.0); ANION GAP 10 (8-16); BLOOD UREA NITROGEN 33 MG/DL (7-18); BUN/CREATININE RATIO 17.2 (5.4-32.0); CALCIUM 8.6 MG/DL (8.5-10.1); CHLORIDE 101 MMOL/L (99-107); CREATININE 1.92 MG/DL (0.60-1.10); GLUCOSE 176 MG/DL (70-104); SODIUM 135 MMOL/L (135-145); TOTAL CARBON DIOXIDE 23.9 MMOL/L (24-32); eGFR 36 ML/MIN
[2020-10-02] MEDS: insulin Lispro (HumaLOG) vial - multi-dose SQ SCH ×2 (10:04→14:53)
[2020-10-02 11:00] VITALS: BP 132/73
--- NOTE | 2020-10-02 12:34 | NUR ---
NS changed from 70ml/hr to 50ml/hr per MD orders.
[2020-10-02] MEDS: acetaminophen 325mg tablet PO PRN (13:23)
[2020-10-02 15:00] VITALS: BP 134/69
[2020-10-02 18:00] VITALS: BP 137/78
--- NOTE | 2020-10-02 18:10 | NUR ---
Problems reprioritized. Patient report given, questions answered & plan of care reviewed with [DARA GUTIERREZ].
--- NOTE | 2020-10-02 18:25 | NUR ---
Orientee documentation: I have reviewed and agree with all interventions, assessments performed and documented by DARA Rodriguez.
[2020-10-02] MEDS: divalproex sod 250mg ER (24-hour) tablet PO SCH (20:57)
[2020-10-02] MEDS: tamsulosin 0.4mg capsule PO SCH (20:58)
[2020-10-02] MEDS: quetiapine fumarate ER 300mg tablet PO SCH (20:59)
[2020-10-02] MEDS: QUETIAPINE 50 MG TAB.SR.24H PO SCH (20:59)
[2020-10-02] MEDS: polyethylene glycol 3350 17gm powd pack PO SCH (21:00)
[2020-10-02] MEDS: OXAZEpam 15mg capsule PO PRN (21:00)
[2020-10-02] MEDS: temazepam 15mg capsule PO PRN (21:00)
[2020-10-02] MEDS: insulin glargine (Lantus) pen - multi-dose SQ SCH (21:06)
[2020-10-02 23:26] VITALS: BP 140/76
[2020-10-03 01:38] VITALS: BP 113/70
[2020-10-03 06:00] VITALS: BP 140/90
--- NOTE | 2020-10-03 06:20 | NUR ---
Patient in room MED 312. I have received report from henry carrera and had the opportunity to ask questions and assume patient care.
--- NOTE | 2020-10-03 06:25 | NUR ---
Problems reprioritized. Patient report given, questions answered & plan of care reviewed with Theresa DIAMOND.
[2020-10-03] MEDS: pantoprazole 40mg Tablet.DR PO SCH (07:50)
[2020-10-03] MEDS: levoTHYROXINE 25mcg tablet PO SCH (07:50)
[2020-10-03] MEDS: K and/or MAG REPLACEMENT MC SCH ×2 (08:00→20:00)
[2020-10-03] MEDS: magnesium hydroxide 30ml (MOM) UD suspension PO SCH ×2 (08:00→20:00)
[2020-10-03] MEDS: normal saline 1000ml 1,000 ML IV SCH (09:05)
[2020-10-03] MEDS: losartan 25mg tablet PO SCH (09:06)
[2020-10-03] MEDS: aspirin 81mg tab.chew PO SCH (09:06)
[2020-10-03] MEDS: docusate sod 100mg capsule PO SCH ×2 (09:07→20:00)
[2020-10-03] MEDS: atorvastatin 20mg tablet PO SCH (09:07)
[2020-10-03] MEDS: linagliptin 5mg tablet PO SCH (09:07)
[2020-10-03] MEDS: clopidogrel 75mg tablet PO SCH (09:07)
[2020-10-03 10:40] LABS: ALBUMIN 2.4 G/DL (3.4-5.0); ANION GAP 10 (8-16); BLOOD UREA NITROGEN 28 MG/DL (7-18); BUN/CREATININE RATIO 15.6 (5.4-32.0); CALCIUM 8.3 MG/DL (8.5-10.1); CHLORIDE 102 MMOL/L (99-107); CREATININE 1.79 MG/DL (0.60-1.10); GLUCOSE 237 MG/DL (70-104); POTASSIUM 3.9 MMOL/L (3.5-5.1); SODIUM 134 MMOL/L (135-145); TOTAL CARBON DIOXIDE 22.1 MMOL/L (24-32); eGFR 39 ML/MIN
[2020-10-03 11:00] VITALS: BP 158/84
[2020-10-03] MEDS: HYDROcodone/acetaminophen 10/325mg tab PO PRN (11:14)
[2020-10-03] MEDS: OXAZEpam 15mg capsule PO PRN ×2 (13:34→20:31)
[2020-10-03 15:00] VITALS: BP 133/79
[2020-10-03 18:00] VITALS: BP 122/89
--- NOTE | 2020-10-03 18:41 | NUR ---
Problems reprioritized. Patient report given, questions answered & plan of care reviewed with .henry morales
--- NOTE | 2020-10-03 19:31 | NUR ---
patient has been playing with his food but has not ate anything yet. No blood sugar coverage for dinner. Will recheck his blood sugar at 2100.
[2020-10-03] MEDS: quetiapine fumarate ER 300mg tablet PO SCH (20:31)
[2020-10-03] MEDS: tamsulosin 0.4mg capsule PO SCH (20:31)
[2020-10-03] MEDS: divalproex sod 250mg ER (24-hour) tablet PO SCH (20:31)
[2020-10-03] MEDS: QUETIAPINE 50 MG TAB.SR.24H PO SCH (20:34)
[2020-10-03] MEDS: polyethylene glycol 3350 17gm powd pack PO SCH (20:34)
[2020-10-03] MEDS: insulin glargine (Lantus) pen - multi-dose SQ SCH (21:19)
[2020-10-03 22:30] VITALS: BP 161/97
[2020-10-03] MEDS: hydrALAZINE 20mg/ml inj. IV PRN (23:00)
[2020-10-03] MEDS: temazepam 15mg capsule PO PRN (23:00)
[2020-10-04] VITALS (12 sets, daily range): BP systolic 113–161; BP diastolic 71–94
--- NOTE | 2020-10-04 06:30 | NUR ---
Problems reprioritized. Patient report given, questions answered & plan of care reviewed with Everett
--- NOTE | 2020-10-04 06:32 | NUR ---
Patient in room MED 312. I have received report from DARA ROB and had the opportunity to ask questions and assume patient care.
--- NOTE | 2020-10-04 07:30 | NUR ---
recieved critical hgb and hct of 6.9 and 20, received call from Dr. Martinez with in 5 minutes notifying me of same, orders taken, at bedside to explain need for blood to pt, awaiting guiac for lab
[2020-10-04 07:45] LABS: BASOPHILS % (AUTO) 0.5 % (0-1); EOSINOPHILS # (AUTO) 0.3 X10'3 (0-0.9); LYMPHOCYTES # (AUTO) 0.9 X10'3 (1.1-4.8); LYMPHOCYTES % (AUTO) 10.4 % (21-51); MEAN CORPUSCULAR HEMOGLOBIN 31.5 PG (27.0-31.0); MEAN CORPUSCULAR HGB CONC 34.6 g/dL (33.0-36.5); MEAN CORPUSCULAR VOLUME 91.2 FL (78-98); MEAN PLATELET VOLUME 6.7 FL (7.4-10.4); MONOCYTES # (AUTO) 0.8 X10'3 (0-0.9); MONOCYTES % (AUTO) 10.2 % (2-12); NEUTROPHILS # (AUTO) 6.2 X10'3 (1.8-7.7); NEUTROPHILS % (AUTO) 75.9 % (42-75); PLATELET COUNT 417 X10'3 (140-440); RED CELL DISTRIBUTION WIDTH 12.5 % (11.5-14.5); WHITE BLOOD COUNT 8.2 X10'3 (4.5-11.0)
[2020-10-04 07:49] LABS: HEMOGLOBIN 6.9 g/dl (14.0-17.9)
[2020-10-04 07:54] LABS: ALBUMIN 2.1 G/DL (3.4-5.0); ANION GAP 11 (8-16); BLOOD UREA NITROGEN 32 MG/DL (7-18); BUN/CREATININE RATIO 15.5 (5.4-32.0); CALCIUM 7.8 MG/DL (8.5-10.1); CHLORIDE 101 MMOL/L (99-107); CREATININE 2.07 MG/DL (0.60-1.10); GLUCOSE 205 MG/DL (70-104); POTASSIUM 3.6 MMOL/L (3.5-5.1); SODIUM 133 MMOL/L (135-145); TOTAL CARBON DIOXIDE 20.9 MMOL/L (24-32); eGFR 33 ML/MIN
[2020-10-04] MEDS: magnesium hydroxide 30ml (MOM) UD suspension PO SCH ×3 (08:00→22:10)
[2020-10-04] MEDS: docusate sod 100mg capsule PO SCH ×3 (08:00→22:09)
[2020-10-04] MEDS: aspirin 81mg tab.chew PO SCH (08:33)
[2020-10-04] MEDS: atorvastatin 20mg tablet PO SCH (08:33)
[2020-10-04] MEDS: linagliptin 5mg tablet PO SCH (08:33)
[2020-10-04] MEDS: pantoprazole 40mg Tablet.DR PO SCH (08:33)
[2020-10-04] MEDS: OXAZEpam 15mg capsule PO PRN ×2 (08:34→19:52)
[2020-10-04] MEDS: clopidogrel 75mg tablet PO SCH (08:34)
[2020-10-04] MEDS: losartan 25mg tablet PO SCH (08:34)
[2020-10-04] MEDS: levoTHYROXINE 25mcg tablet PO SCH (08:36)
[2020-10-04] MEDS: K and/or MAG REPLACEMENT MC SCH ×2 (08:42→19:54)
[2020-10-04] MEDS ORDERED: PEG 3350/Na sulf,bicarb,Cl/KCl oral sol 4 liter bottle PO ONE (13:05)
--- NOTE | 2020-10-04 18:24 | NUR ---
Problems reprioritized. Patient report given, questions answered & plan of care reviewed with .henry morales
--- NOTE | 2020-10-04 18:35 | NUR ---
Patient in room MED 312. I have received report from Everett, and had the opportunity to ask questions and assume patient care.
[2020-10-04] MEDS: tamsulosin 0.4mg capsule PO SCH (19:53)
[2020-10-04] MEDS: quetiapine fumarate ER 300mg tablet PO SCH (19:53)
[2020-10-04] MEDS: divalproex sod 250mg ER (24-hour) tablet PO SCH (19:53)
[2020-10-04] MEDS: QUETIAPINE 50 MG TAB.SR.24H PO SCH (19:53)
[2020-10-04] MEDS: polyethylene glycol 3350 17gm powd pack PO SCH ×2 (19:54→22:09)
--- NOTE | 2020-10-04 20:03 | NUR ---
Unable to cover the dinner blood sugar coverage. Will check his blood sugar at 2100. Alert, oriented x4. drinking golytely. EGD and colonoscopy scheduled for tomorrow. NPO after midnight
[2020-10-04] MEDS: insulin glargine (Lantus) pen - multi-dose SQ SCH (21:24)
[2020-10-04 21:45] LABS: HEMATOCRIT 26.7 % (42.0-52.0); HEMOGLOBIN 9.2 g/dl (14.0-17.9); MEAN CORPUSCULAR HEMOGLOBIN 30.9 PG (27.0-31.0); MEAN CORPUSCULAR HGB CONC 34.4 g/dL (33.0-36.5); MEAN CORPUSCULAR VOLUME 89.6 FL (78-98); MEAN PLATELET VOLUME 6.3 FL (7.4-10.4); PLATELET COUNT 473 X10'3 (140-440); RED BLOOD COUNT 2.98 X10'6 (4.70-6.10); RED CELL DISTRIBUTION WIDTH 12.8 % (11.5-14.5); WHITE BLOOD COUNT 5.6 X10'3 (4.5-11.0)
--- NOTE | 2020-10-04 21:55 | NUR ---
Hemoglobin level increased from 6.9 to 9.2 with 1 unit PRBC transfusion today. Patient feels better. Getter prepped for EGD and Colonoscopy.
[2020-10-05] VITALS (11 sets, daily range): BP systolic 92–158; BP diastolic 61–119
[2020-10-05 02:16] LABS: OCCULT BLOOD STOOL NEGATIVE (Neg)
--- NOTE | 2020-10-05 03:23 | NUR ---
Patient has the bedside commode. The Golytely is almost finished. Patient is advised to call us whenever needs help with the bedside commode. AOX4. Not at any distress. All needs are met at this time.
--- NOTE | 2020-10-05 05:42 | NUR ---
Called Dr. Calero for rectal tube insertion. explosive diarrhea, called housekeeping to help. They are on the way to mop the flood. Patient is informed.
--- NOTE | 2020-10-05 06:20 | NUR ---
Patient in room MED 312. I have received report from DARA ROB and had the opportunity to ask questions and assume patient care.
--- NOTE | 2020-10-05 06:27 | NUR ---
Problems reprioritized. Patient report given, questions answered & plan of care reviewed with Everett.
[2020-10-05] MEDS: atorvastatin 20mg tablet PO SCH (08:00)
[2020-10-05] MEDS: docusate sod 100mg capsule PO SCH ×2 (08:00→19:51)
[2020-10-05] MEDS: K and/or MAG REPLACEMENT MC SCH ×2 (08:00→19:53)
[2020-10-05] MEDS: magnesium hydroxide 30ml (MOM) UD suspension PO SCH ×2 (08:00→19:51)
[2020-10-05] MEDS: pantoprazole 40mg Tablet.DR PO SCH (10:55)
[2020-10-05] MEDS: levoTHYROXINE 25mcg tablet PO SCH (10:56)
[2020-10-05] MEDS: losartan 25mg tablet PO SCH (10:56)
[2020-10-05] MEDS: OXAZEpam 15mg capsule PO PRN ×2 (10:57→19:52)
[2020-10-05] MEDS: linagliptin 5mg tablet PO SCH (11:02)
--- NOTE | 2020-10-05 13:32 | NUR ---
F/u 10/05: Pt PO 75-100% avg carb controlled diet w/ double proteins TIDWM previously meeting needs regressed to clear liquid diet starting dinner last night 10/05 PO 100%. Pt placed on clears for GIB concerns w/ persistent melatonic stools pending colonoscopy and s/p golytely per EMR. Copious BM 10/05 following GI prep per EMR. Will monitor for diet advancement and ONS needs if to remain on kcal-restricted diet. Recommendations: 1) advance to CHO controlled diet as medically indicated 2) once diet advancement; Double eggs WB, double meat BIDLD 3) Routine bowel care 4) Weekly scaled weights Addendum: 10/05/20 at [address] Amended: Links added.
[2020-10-05] MEDS ORDERED: fentaNYL/PF 50MCG/1 ML 2ML syringe ONE ×2 (13:39→16:09)
[2020-10-05] MEDS ORDERED: LIDOcaine Viscous 15ml cup ONE (13:40)
[2020-10-05] MEDS ORDERED: MIDAZolam 1 MG/ML 5ML VIAL ONE (13:40)
--- NOTE | 2020-10-05 18:34 | NUR ---
Problems reprioritized. Patient report given, questions answered & plan of care reviewed with DARA ROB.
--- NOTE | 2020-10-05 18:35 | NUR ---
Patient in room MED 312. I have received report from Everett, and had the opportunity to ask questions and assume patient care.
[2020-10-05] MEDS: insulin Lispro (HumaLOG) vial - multi-dose SQ SCH (19:40)
[2020-10-05] MEDS: divalproex sod 250mg ER (24-hour) tablet PO SCH (19:51)
[2020-10-05] MEDS: QUETIAPINE 50 MG TAB.SR.24H PO SCH (19:51)
[2020-10-05] MEDS: polyethylene glycol 3350 17gm powd pack PO SCH (19:52)
[2020-10-05] MEDS: tamsulosin 0.4mg capsule PO SCH (19:52)
[2020-10-05] MEDS: quetiapine fumarate ER 300mg tablet PO SCH (19:52)
[2020-10-05] MEDS: insulin glargine (Lantus) pen - multi-dose SQ SCH (21:31)
[2020-10-06 02:00] VITALS: BP 132/74
[2020-10-06 06:35] VITALS: BP 141/77
--- NOTE | 2020-10-06 06:43 | NUR ---
Problems reprioritized. Patient report given, questions answered & plan of care reviewed with Pat-RN.
[2020-10-06] MEDS: magnesium hydroxide 30ml (MOM) UD suspension PO SCH (08:00)
[2020-10-06] MEDS: linagliptin 5mg tablet PO SCH (08:00)
[2020-10-06] MEDS: atorvastatin 20mg tablet PO SCH (08:13)
[2020-10-06] MEDS: pantoprazole 40mg Tablet.DR PO SCH (08:13)
[2020-10-06] MEDS: levoTHYROXINE 25mcg tablet PO SCH (08:13)
[2020-10-06] MEDS: docusate sod 100mg capsule PO SCH (08:13)
[2020-10-06 08:14] VITALS: BP_SYST 141
[2020-10-06] MEDS: losartan 25mg tablet PO SCH (08:14)
[2020-10-06] MEDS ORDERED: CLOP75TA15 PO (09:37)
--- NOTE | 2020-10-06 15:25 | NUR ---
PATIENT DISCHARGED HOME WITH ALL BELONGINGS, INCLUDING WALLET FROM THE [facility], AND DISCHARGE INSTRUCTIONS. FOLLOW UP WITH DR. JOSÉ IN ONE WEEK; PATIENT WILL CALL FOR APPOINTMENT TO SEE HIS PMD AND APPOINTMENT WITH DR. JOSÉ. PATIENT WILL ALSO CALL DR. JOSÉ'S OFFICE TO SET A TIME FOR STAPLE REMOVAL. Addendum: 10/06/20 at 1534 by Sheila Zavala RN Amended: Links added.
--- NOTE | 2020-10-06 19:29 | NUR ---
SAILAJA AT RT AND LT GROIN INTACT , NO S/S OF INFECTION NOTED..ISLAND DRESSINGS PLACED Addendum: 10/06/20 at 1936 by Sheila Zavala RN Amended: Links added.
--- NOTE | 2020-10-08 10:55 | NUR ---
CASE MANAGEMENT DISCHARGE FOLLOW UP: Spoke with pt's daughter, Anju, via telephone. Reports that pt is doing well in regards to post procedure recovery, however pt is "super manic right now." She states that pt has been up all night, no sleep x2 days; she expresses concern as she cannot get pt to come back to hospital. Pt states that prior to pt's admission for cardiac related issues, she was intending to bring pt to hospital as he was becoming more manic after he was taken off his lithium "cold-turkey" after, per his daughter, elevated blood lithium levels. She states that pt has not expressed thoughts of harming himself or others. She states that she tried to talk to nurses about it but felt concerns were dismissed because it wasn't related to reason for hospitalization. Per daughter, pt has his medications, including mew medication Plavix, taking as directed. Understands risk of bleeding with use of Plavix. Verbalizes compliance with MD discharge instructions, states pt has his follow-up appointments scheduled. Other than concerns for pt's wellfare, states no further questions/concerns at this time. This nurse will follow up with social worker health services for their recommendation and either relay to pt's daughter or have social worker health services contact pt's daughter directly. Pt's daughter states that she will try to get pt to come back to ED, will check on him this afternoon. Addendum: 10/08/20 at 1407 by Janis Turner RN 1145 Spoke with social worker health services, was advised that pt can either make appt with his psychiatric physician at [facility] or another option is to contact Mobile Crisis Outreach Team of [facility] at [phone] or urgently at [phone] if there is concern that pt may inadvertently harm self due to current mental health condition. Otherwise, if pt is in immediate danger emergency services should be contacted. Will notify pt's daughter. 1157 Spoke with pt's daughter, provided her with options advised by social worker health services, provided with phone numbers. She states she will contact the mobile crisis outreach team.
== END 2020-10-06 15:35 | disposition home health service (06) | DRG 252 ==
LOC: ER 09:23 → ED HOLD 11:31 → EDBEDREQ 13:57 → PCU 3S 14:38 → CICU 2S 09-27 17:00 → PCU 3S 09-28 16:29 → MED 3N 09-29 06:56
PROVIDERS: ADMIT Internal Medicine; ATTEND Internal Medicine
PROC: 4A02XM4 Measurement of Cardiac Total Activity, External Approach (ICD-10-PCS; 2020-09-20)
PROC: 3E033HZ Introduction of Radioactive Substance into Peripheral Vein, Percutaneous Approach (ICD-10-PCS; 2020-09-20)
PROC: 4A023N7 Measurement of Cardiac Sampling and Pressure, Left Heart, Percutaneous Approach (ICD-10-PCS; principal; 2020-09-22)
PROC: B2180ZZ Fluoroscopy of Left Internal Mammary Bypass Graft using High Osmolar Contrast (ICD-10-PCS; 2020-09-22)
PROC: B2111ZZ Fluoroscopy of Multiple Coronary Arteries using Low Osmolar Contrast (ICD-10-PCS; 2020-09-22)
PROC: B2151ZZ Fluoroscopy of Left Heart using Low Osmolar Contrast (ICD-10-PCS; 2020-09-22)
PROC: B41G1ZZ Fluoroscopy of Left Lower Extremity Arteries using Low Osmolar Contrast (ICD-10-PCS; 2020-09-22)
PROC: 047D3DZ Dilation of Left Common Iliac Artery with Intraluminal Device, Percutaneous Approach (ICD-10-PCS; 2020-09-24)
PROC: 047C3DZ Dilation of Right Common Iliac Artery with Intraluminal Device, Percutaneous Approach (ICD-10-PCS; 2020-09-24)
PROC: B44FZZZ Ultrasonography of Right Lower Extremity Arteries (ICD-10-PCS; 2020-09-24)
PROC: B44GZZZ Ultrasonography of Left Lower Extremity Arteries (ICD-10-PCS; 2020-09-24)
PROC: 04CL0ZZ Extirpation of Matter from Left Femoral Artery, Open Approach (ICD-10-PCS; 2020-09-27)
PROC: 04CK0ZZ Extirpation of Matter from Right Femoral Artery, Open Approach (ICD-10-PCS; 2020-09-27)
PROC: 04U Lower Arteries, Supplement (ICD-10-PCS; 2020-09-27)
PROC: 04U Lower Arteries, Supplement (ICD-10-PCS; 2020-09-27)
PROC: 30233N1 Transfusion of Nonautologous Red Blood Cells into Peripheral Vein, Percutaneous Approach (ICD-10-PCS; 2020-10-04)
PROC: 0DB68ZX Excision of Stomach, Via Natural or Artificial Opening Endoscopic, Diagnostic (ICD-10-PCS; 2020-10-05)
PROC: 0DBK8ZZ Excision of Ascending Colon, Via Natural or Artificial Opening Endoscopic (ICD-10-PCS; 2020-10-05)
PROC: 0DBL8ZZ Excision of Transverse Colon, Via Natural or Artificial Opening Endoscopic (ICD-10-PCS; 2020-10-05)
DX: I21.4 Non-ST elevation (NSTEMI) myocardial infarction (principal); N17.0 Acute kidney failure with tubular necrosis; D62 Acute posthemorrhagic anemia; E11.51 Type 2 diabetes mellitus with diabetic peripheral angiopathy without gangrene; I10 Essential (primary) hypertension; F41.9 Anxiety disorder, unspecified; I65.22 Occlusion and stenosis of left carotid artery; I25.5 Ischemic cardiomyopathy; D64.9 Anemia, unspecified; E78.00 Pure hypercholesterolemia, unspecified; E78.5 Hyperlipidemia, unspecified; F20.9 Schizophrenia, unspecified; F31.9 Bipolar disorder, unspecified; G47.00 Insomnia, unspecified; I70.201 Unspecified atherosclerosis of native arteries of extremities, right leg; J44.9 Chronic obstructive pulmonary disease, unspecified; Z79.02 Long term (current) use of antithrombotics/antiplatelets; Z79.82 Long term (current) use of aspirin; Z87.891 Personal history of nicotine dependence; Z95.1 Presence of aortocoronary bypass graft
CPT/HCPCS: 36415; 36430; 37221; 37223; 43239; 45385; 71045; 75635; 78452; 80048; 80053; 80061; 81001; 82272; 82607; 82728; 82948; 83036; 83880; 84439; 84443; 84480; 84484; 85025; 85027; 85610; 85730; 86885; 86900; 86901; 86920; 87081; 88300; 88305; 93005; 93017; 93306; 93459; 93880; 93922; 93925; 94799; 97116; 97161; 97530; 99152; 99153; 99285; A4618; A4620; A6213; A6258; A6455; A7000; A9500; C1725; C1760; C1768; C1769; C1773; C1874; C1894; G0378; J0360; J0690; J1644; J1650; J1815; J2001; J2175; J2250; J2270; J2405; J2704; J2720; J2785; J3010; J3480; J3490; J7030; J7040; J7120; P9016; Q9967

== ENCOUNTER 2020-10-10 11:09 | Emergency (ER) | payer MEDICARE, MEDICAID ==
[~2020-10-10] VITALS: Ht 172.7 cm; Wt 69.6 kg
[~2020-10-10 11:09] MED LIST changes: +ALBU18HF2 INH; +CLOP75TA15 PO; +DIVA250T8 PO; +DIVA500T9 PO; +LEVO50TA PO; -LEVO50TA8 PO; -LIT300C PO; +LOSA50TA64 PO; -METF-950 PO; -MULT-1179 PO; +OMEP-50 PO; -PANT40TA54 PO; +QUET300T72 PO; +ROSU10TA28 PO; -SITA100T11 PO; +SITA1TAB2 PO; -TEMA15CA PO
[2020-10-10 13:50] LABS: BASOPHILS # (AUTO) 0.1 X10'3 (0-0.2); BASOPHILS % (AUTO) 0.9 % (0-1); EOSINOPHILS # (AUTO) 0.4 X10'3 (0-0.9); EOSINOPHILS % (AUTO) 5.7 % (0-6); HEMATOCRIT 23.1 % (42.0-52.0); LYMPHOCYTES # (AUTO) 1.5 X10'3 (1.1-4.8); LYMPHOCYTES % (AUTO) 21.3 % (21-51); MEAN CORPUSCULAR HEMOGLOBIN 31.2 PG (27.0-31.0); MEAN CORPUSCULAR HGB CONC 34.8 g/dL (33.0-36.5); MEAN CORPUSCULAR VOLUME 89.8 FL (78-98); MEAN PLATELET VOLUME 6.7 FL (7.4-10.4); MONOCYTES # (AUTO) 0.6 X10'3 (0-0.9); MONOCYTES % (AUTO) 8.4 % (2-12); NEUTROPHILS # (AUTO) 4.5 X10'3 (1.8-7.7); NEUTROPHILS % (AUTO) 63.7 % (42-75); PLATELET COUNT 461 X10'3 (140-440); RED BLOOD COUNT 2.57 X10'6 (4.70-6.10); RED CELL DISTRIBUTION WIDTH 12.9 % (11.5-14.5); WHITE BLOOD COUNT 7.1 X10'3 (4.5-11.0)
[2020-10-10] MEDS ORDERED: furosemide 20MG tablet PO ONE (13:50)
[2020-10-10] MEDS ORDERED: FURO40TA4 PO (13:55)
[2020-10-10] MEDS ORDERED: TRAZ-251 PO (13:55)
[2020-10-10 14:05] LABS: ALANINE AMINOTRANSFERASE 38 U/L (12-78); ALBUMIN 2.6 G/DL (3.4-5.0); ALBUMIN/GLOBULIN RATIO 0.7 (1.1-1.5); ALKALINE PHOSPHATASE 75 IU/L (46-116); ANION GAP 15 (8-16); ASPARTATE AMINO TRANSFERASE 22 U/L (10-37); BILIRUBIN,TOTAL 0.3 MG/DL (0.1-1.0); BLOOD UREA NITROGEN 75 MG/DL (7-18); BUN/CREATININE RATIO 43.1 (5.4-32.0); CALCIUM 8.2 MG/DL (8.5-10.1); CHLORIDE 103 MMOL/L (99-107); CREATININE 1.74 MG/DL (0.60-1.10); GLUCOSE 181 MG/DL (70-104); POTASSIUM 3.4 MMOL/L (3.5-5.1); SODIUM 135 MMOL/L (135-145); TOTAL CARBON DIOXIDE 17.2 MMOL/L (24-32); TOTAL PROTEIN 6.2 G/DL (6.4-8.2); eGFR 40 ML/MIN
--- NOTE | 2020-10-10 14:07 | NUR ---
K+ 3.4 MARTY Hartley notified, hold for now until further intervention
[2020-10-10 14:18] VITALS: BP 130/81
== END 2020-10-10 14:40 | disposition home or self-care (01) ==
LOC: ER 11:10
DX: R60.0 Localized edema (principal); G47.00 Insomnia, unspecified; Z95.5 Presence of coronary angioplasty implant and graft; I25.10 Atherosclerotic heart disease of native coronary artery without angina pectoris; E78.00 Pure hypercholesterolemia, unspecified; I10 Essential (primary) hypertension; Z95.1 Presence of aortocoronary bypass graft; Z56.0 Unemployment, unspecified
CPT/HCPCS: 36415; 80053; 85025; 99283; 99284

== ENCOUNTER 2020-10-15 12:21 | Emergency (ER) | payer MEDICARE, MEDICAID ==
[~2020-10-15] VITALS: Ht 172.7 cm; Wt 64.0 kg
[~2020-10-15 12:21] MED LIST changes: +FURO40TA4 PO; +TRAZ-251 PO
[2020-10-15 13:06] LABS: BASOPHILS # (AUTO) 0.1 X10'3 (0-0.2); BASOPHILS % (AUTO) 1.2 % (0-1); EOSINOPHILS # (AUTO) 0.3 X10'3 (0-0.9); EOSINOPHILS % (AUTO) 4.7 % (0-6); HEMATOCRIT 24.7 % (42.0-52.0); HEMOGLOBIN 8.7 g/dl (14.0-17.9); LYMPHOCYTES # (AUTO) 0.9 X10'3 (1.1-4.8); LYMPHOCYTES % (AUTO) 14.5 % (21-51); MEAN CORPUSCULAR HEMOGLOBIN 31.1 PG (27.0-31.0); MEAN CORPUSCULAR HGB CONC 35.2 g/dL (33.0-36.5); MEAN CORPUSCULAR VOLUME 88.3 FL (78-98); MEAN PLATELET VOLUME 6.9 FL (7.4-10.4); MONOCYTES # (AUTO) 0.4 X10'3 (0-0.9); MONOCYTES % (AUTO) 6.2 % (2-12); NEUTROPHILS # (AUTO) 4.3 X10'3 (1.8-7.7); NEUTROPHILS % (AUTO) 73.4 % (42-75); PLATELET COUNT 417 X10'3 (140-440); WHITE BLOOD COUNT 5.9 X10'3 (4.5-11.0)
[2020-10-15 13:33] LABS: ALANINE AMINOTRANSFERASE 25 U/L (12-78); ALBUMIN 2.7 G/DL (3.4-5.0); ALBUMIN/GLOBULIN RATIO 0.8 (1.1-1.5); ALKALINE PHOSPHATASE 78 IU/L (46-116); ANION GAP 9 (8-16); ASPARTATE AMINO TRANSFERASE 13 U/L (10-37); BILIRUBIN,TOTAL 0.3 MG/DL (0.1-1.0); BLOOD UREA NITROGEN 47 MG/DL (7-18); BUN/CREATININE RATIO 24.2 (5.4-32.0); CALCIUM 7.6 MG/DL (8.5-10.1); CHLORIDE 96 MMOL/L (99-107); CREATININE 1.94 MG/DL (0.60-1.10); ETHANOL < 0.010 GM/DL (0.0-0.010); GLUCOSE 274 MG/DL (70-104); SODIUM 131 MMOL/L (135-145); TOTAL CARBON DIOXIDE 26.4 MMOL/L (24-32); TOTAL PROTEIN 6.2 G/DL (6.4-8.2); eGFR 35 ML/MIN
[2020-10-15 13:37] LABS: POTASSIUM 2.9 MMOL/L (3.5-5.1)
[2020-10-15] MEDS ORDERED: CLOP75TA34 PO (13:38)
[2020-10-15] MEDS ORDERED: TRAZ-251 PO (13:38)
[2020-10-15] MEDS ORDERED: FURO40TA4 PO (13:38)
[2020-10-15] MEDS ORDERED: potassium Cl 20 mEq SR tablet PO STA (13:44)
[2020-10-15] MEDS ORDERED: potassium Cl 10 mEq/100mL bag IV ONE (13:45)
[2020-10-15] MEDS ORDERED: normal saline 1000ML IV soln IVB ONE (13:45)
--- NOTE | 2020-10-15 17:00 | NUR ---
Pt. brought in by EMS on 5150 from psychiatrist's office. 5150 states that pt. was talking non-stop, difficult to interrupt, pre-occupied with medication, not sleeping, walking naked in his house, threatening other people, significant change in personality, and poor hygiene. Pt. has hx of Bipolar d/o with hospitalization and pt. is currently going through similar episode. 1:1 and physical assessment done and pt. cooperative. Pt. has 2+ left pedal edema. Pt. is A&Ox4 pt. denies SI/HI, A/V hallucinations. Pt. is hyperverbal with tangential and d/o thought process, talking at length about conspiracy theories.
[2020-10-15 17:50] LABS: CLARITY,URINE CLEAR (Clear); COLOR,URINE YELLOW (Yellow); GLUCOSE, URINE 100 mg/dl (Neg); KETONES,URINE NEGATIVE (Neg); LEUKOCYTE ESTERASE ,URINE TRACE (Neg); NITRITES, URINE NEGATIVE (Neg); OCCULT BLOOD,URINE NEGATIVE (Neg); PH,URINE 6.5 (4.8-8.0); PROTEIN,URINE 100 mg/dl (Neg); UROBILINOGEN,URINE 0.2 E.U/dL (0.2-1.0)
[2020-10-15 17:54] LABS: UA COLLECTION TYPE CLN CATCH MIDSTREAM; WBC,URINE 0-4 /HPF (0-4)
[2020-10-15 17:55] LABS: BACTERIA,URINE NONE SEEN /HPF (Neg); MUCUS STRANDS NONE SEEN /LPF (Neg); RBC,URINE NONE SEEN /HPF (0-2); SQUAMOUS EPITHELIAL CELL,UR FEW /LPF (FEW)
--- NOTE | 2020-10-15 18:00 | NUR ---
Pt. has balteral scabbed wounds from bilateral illiac stent surgery on 09/27/20. Wounds are clean, dry, and intact.
[2020-10-15 18:03] LABS: URINE AMPHETAMINE SCREEN NEGATIVE (Neg); URINE BARBITUATE SCREEN NEGATIVE (Neg); URINE BENZODIAZEPINES SCREEN NEGATIVE (Neg); URINE CANNABINOID SCREEN POSITIVE (Neg); URINE COCAINE SCREEN NEGATIVE (Neg); URINE METHADONE SCREEN NEGATIVE (Neg); URINE OPIATE SCREEN NEGATIVE (Neg); URINE PHENCYCLIDINE SCREEN NEGATIVE (Neg)
[2020-10-15 18:35] LABS: ALANINE AMINOTRANSFERASE 26 U/L (12-78); ALBUMIN 2.7 G/DL (3.4-5.0); ALBUMIN/GLOBULIN RATIO 0.8 (1.1-1.5); ALKALINE PHOSPHATASE 82 IU/L (46-116); ANION GAP 8 (8-16); ASPARTATE AMINO TRANSFERASE 16 U/L (10-37); BILIRUBIN,TOTAL 0.2 MG/DL (0.1-1.0); BLOOD UREA NITROGEN 39 MG/DL (7-18); BUN/CREATININE RATIO 23.5 (5.4-32.0); CALCIUM 7.8 MG/DL (8.5-10.1); CHLORIDE 104 MMOL/L (99-107); CREATININE 1.66 MG/DL (0.60-1.10); GLUCOSE 148 MG/DL (70-104); POTASSIUM 3.5 MMOL/L (3.5-5.1); SODIUM 137 MMOL/L (135-145); TOTAL CARBON DIOXIDE 25.1 MMOL/L (24-32); TOTAL PROTEIN 6.2 G/DL (6.4-8.2); eGFR 42 ML/MIN
--- NOTE | 2020-10-15 19:12 | NUR ---
Patient is sitting up, finishing dinner. He is well oriented, cooperative, and polite. Patient denies distrtess. Further conversation and eval to follow.
--- NOTE | 2020-10-15 19:15 | NUR ---
Patient is ambulatory, normal gait. To bathroom for BM.
--- NOTE | 2020-10-15 20:52 | NUR ---
Patient states "I'm very happy," he denies S/I, H/I, or any hallucinations. Patient speaks in a quiet voice, normal rate, rhythm, and tone. Patient ambulates without problem. He is compliant with medications.
[2020-10-15] MEDS ORDERED: QUETIAPINE 50 MG TAB.SR.24H PO SCH (21:00)
[2020-10-15] MEDS ORDERED: QUETIAPINE 200 MG TAB.SR.24H PO SCH (21:00)
[2020-10-15] MEDS ORDERED: traZODone 50mg tablet PO SCH (21:00)
[2020-10-15] MEDS ORDERED: quetiapine fumarate ER 300mg tablet PO SCH ×2 (21:00)
[2020-10-15] MEDS ORDERED: divalproex sod 250mg ER (24-hour) tablet PO SCH (21:00)
--- NOTE | 2020-10-15 21:26 | NUR ---
Patient up to bathroom. He now presents as hyperverbal, abril is present.
[2020-10-15 22:04] VITALS: BP 137/73
[2020-10-16] MEDS ORDERED: metFORMIN 500mg tablet PO SCH (07:30)
[2020-10-16] MEDS ORDERED: linagliptin 5mg tablet PO SCH (07:30)
[2020-10-16] MEDS ORDERED: aspirin 81mg tab.chew PO SCH (08:00)
[2020-10-16] MEDS ORDERED: atorvastatin 20mg tablet PO SCH (08:00)
[2020-10-16] MEDS ORDERED: pantoprazole 40mg Tablet.DR PO SCH (08:00)
[2020-10-16] MEDS ORDERED: losartan 50mg tablet PO SCH (08:00)
[2020-10-16] MEDS ORDERED: clopidogrel 75mg tablet PO SCH (08:00)
[2020-10-16] MEDS ORDERED: furosemide 40mg tablet PO SCH (08:00)
[2020-10-16] MEDS ORDERED: cetirizine 10mg tablet PO SCH (08:00)
[2020-10-16] MEDS ORDERED: levoTHYROXINE 25mcg tablet PO SCH (08:00)
== END 2020-10-15 22:09 | disposition home or self-care (01) ==
LOC: ER 12:22
DX: R45.851 Suicidal ideations (principal); I25.10 Atherosclerotic heart disease of native coronary artery without angina pectoris; I10 Essential (primary) hypertension; E78.00 Pure hypercholesterolemia, unspecified; F20.9 Schizophrenia, unspecified; Z72.89 Other problems related to lifestyle; Z56.0 Unemployment, unspecified; Z95.1 Presence of aortocoronary bypass graft; Z79.2 Long term (current) use of antibiotics; Z88.8 Allergy status to other drugs, medicaments and biological substances; Z79.82 Long term (current) use of aspirin; Z79.899 Other long term (current) drug therapy
CPT/HCPCS: 96360; 96361; 99285; J3480; J7030; 36415; 80053; 80305; 80320; 81001; 84443; 85025; 96365; 96366

== ENCOUNTER 2022-12-06 05:06 | Inpatient (IN) | payer MEDICARE, MEDICAID ==
[~2022-12-06] VITALS: Ht 170.2 cm; Wt 65.0 kg
[~2022-12-06 05:06] MED LIST changes: -ALBU18HF2 INH; -CLOP75TA15 PO; +CLOP75TA34 PO; -DIVA250T8 PO; -FURO40TA4 PO; -OMEP-50 PO; +OMEP20CA16 PO; -QUET300T72 PO
[2022-12-06] MEDS ORDERED: ondansetron/PF 4mg/2ml inj IV ONE (07:40)
[2022-12-06] MEDS ORDERED: normal saline 1000ML IV soln IVB ONE (07:40)
[2022-12-06] MEDS ORDERED: pantoprazole 40 MG vial IV ONE (07:40)
[2022-12-06] MEDS ORDERED: fentaNYL/PF 50MCG/1 ML 2ML syringe IV ONE (07:45)
[2022-12-06 08:20] LABS: BASOPHILS % (AUTO) 0.5 % (0-1); EOSINOPHILS # (AUTO) 0.4 X10'3 (0-0.9); EOSINOPHILS % (AUTO) 5.7 % (0-6); HEMATOCRIT 36.6 % (42.0-52.0); HEMOGLOBIN 12.2 g/dl (14.0-17.9); LYMPHOCYTES # (AUTO) 1.2 X10'3 (1.1-4.8); LYMPHOCYTES % (AUTO) 16.5 % (21-51); MEAN CORPUSCULAR HEMOGLOBIN 28.7 PG (27.0-31.0); MEAN CORPUSCULAR HGB CONC 33.2 g/dL (33.0-36.5); MEAN CORPUSCULAR VOLUME 86.6 FL (78-98); MEAN PLATELET VOLUME 7.1 FL (7.4-10.4); MONOCYTES # (AUTO) 0.7 X10'3 (0-0.9); MONOCYTES % (AUTO) 9.1 % (2-12); NEUTROPHILS % (AUTO) 68.2 % (42-75); PLATELET COUNT 243 X10'3 (140-440); RED BLOOD COUNT 4.23 X10'6 (4.70-6.10); RED CELL DISTRIBUTION WIDTH 16.5 % (11.5-14.5); WHITE BLOOD COUNT 7.3 X10'3 (4.5-11.0)
[2022-12-06 08:26] LABS: APTT 40 SECONDS (22-32); PROTHROMBIN TIME 10.5 SECONDS (9.0-12.0)
[2022-12-06 08:27] LABS: ALANINE AMINOTRANSFERASE 16 U/L (12-78); ALBUMIN 2.8 G/DL (3.4-5.0); ALBUMIN/GLOBULIN RATIO 0.7 (1.1-1.5); ALKALINE PHOSPHATASE 87 IU/L (46-116); ANION GAP 10 (8-16); ASPARTATE AMINO TRANSFERASE 18 U/L (10-37); BILIRUBIN,TOTAL 0.3 MG/DL (0.1-1.0); BLOOD UREA NITROGEN 22 MG/DL (7-18); BUN/CREATININE RATIO 15.7 (10.0-20.0); CALCIUM 8.3 MG/DL (8.5-10.1); CHLORIDE 102 MMOL/L (99-107); GLUCOSE 104 MG/DL (70-104); POTASSIUM 3.9 MMOL/L (3.5-5.1); SODIUM 134 MMOL/L (135-145); TOTAL CARBON DIOXIDE 21.6 MMOL/L (24-32); eCRCL 50 ML/MIN; eGFR 51 ML/MIN
[2022-12-06] MEDS ORDERED: pantoprazole 80 MG in NS 100ml IV soln IV ONE (08:30)
[2022-12-06 08:31] LABS: AMYLASE 47 U/L (25-115); CREATINE KINASE 80 U/L (39-308); LIPASE 99 U/L (73-393); MAGNESIUM 1.7 MG/DL (1.5-2.4)
[2022-12-06] MEDS ORDERED: iohexol 300mg/ml 100ml inj. ONE (08:39)
[2022-12-06 10:06] LABS: BILIRUBIN,URINE NEGATIVE (Neg); CLARITY,URINE SLIGHTLY CLOUDY (Clear); COLOR,URINE STRAW (Yellow); GLUCOSE, URINE NEGATIVE (Neg); KETONES,URINE NEGATIVE (Neg); LEUKOCYTE ESTERASE ,URINE LARGE (Neg); NITRITES, URINE POSITIVE (Neg); OCCULT BLOOD,URINE TRACE-INTACT (Neg); PH,URINE 5.5 (4.8-8.0); PROTEIN,URINE TRACE mg/dl (Neg); UROBILINOGEN,URINE 0.2 E.U/dL (0.2-1.0)
[2022-12-06 10:10] LABS: UA COLLECTION TYPE FOLEY CATH
[2022-12-06 10:17] LABS: BACTERIA,URINE 4+ /HPF (Neg); SQUAMOUS EPITHELIAL CELL,UR NONE SEEN /LPF (FEW); WBC,URINE TNTC /HPF (0-4)
[2022-12-06 10:33] LABS: URINE AMPHETAMINE SCREEN NEGATIVE (Neg); URINE BARBITUATE SCREEN NEGATIVE (Neg); URINE BENZODIAZEPINES SCREEN NEGATIVE (Neg); URINE CANNABINOID SCREEN POSITIVE (Neg); URINE COCAINE SCREEN NEGATIVE (Neg); URINE METHADONE SCREEN NEGATIVE (Neg); URINE OPIATE SCREEN NEGATIVE (Neg); URINE PHENCYCLIDINE SCREEN NEGATIVE (Neg)
[2022-12-06] MEDS ORDERED: CefTRIAXone/D5W-Rocephin 1gm 50 ML IV ONE (14:05)
[2022-12-06] MEDS ORDERED: magnesium 4gm in 100ml NS 100 ML IV PRN (14:50)
[2022-12-06] MEDS ORDERED: ondansetron/PF 4mg/2ml inj IV PRN (14:50)
[2022-12-06] MEDS ORDERED: potassium Cl 20 mEq SR tablet PO PRN ×2 (14:50)
[2022-12-06] MEDS ORDERED: acetaminophen 325mg tablet PO PRN (14:50)
[2022-12-06] MEDS ORDERED: magnesium Cl slow-release 64mg tablet PO PRN (14:50)
[2022-12-06] MEDS ORDERED: magnesium 2GM in 50ml NS 50 ML IV PRN (14:50)
[2022-12-06] MEDS ORDERED: potassium Cl 40MEQ/1/2NS 520ml 520 ML IV PRN (14:50)
[2022-12-06] MEDS ORDERED: metroNIDAZOLE-Flagyl 750mg/NS 150 ML IV SCH (16:00)
--- NOTE | 2022-12-06 16:52 | NUR ---
REPORT ATTEMPTED, DARA BORGES TO CALL BACK.
[2022-12-06] MEDS: metroNIDAZOLE-Flagyl 500mg/NS 100 ML IV SCH (17:00)
[2022-12-06] MEDS: normal saline 1000ml 1,000 ML IV SCH (18:10)
--- NOTE | 2022-12-06 18:25 | NUR ---
Report received from JAMIE HART RN. Pt is to transfer into room 3004
--- NOTE | 2022-12-06 18:26 | NUR ---
REPORT GIVEN TO DARA GERARDO, PT GOING TO BED 1660O
[2022-12-06] MEDS: K and/or MAG REPLACEMENT MC SCH (20:00)
[2022-12-06 22:00] VITALS: BP 155/81; PULSE 89; RESP 16; TEMP 98.4; O2SAT 96
[2022-12-06 23:07] VITALS: BP 127/69; PULSE 70; RESP 16; TEMP 98.7; O2SAT 97
[2022-12-06] MEDS ORDERED: morphine 2 MG/ML inj. syringe IV PRN (23:55)
[2022-12-07] MEDS: metroNIDAZOLE-Flagyl 500mg/NS 100 ML IV SCH ×5 (00:31→23:41)
[2022-12-07] MEDS: HYDROcodone/acetaminophen 10/325mg tab PO PRN ×2 (00:32→02:13)
[2022-12-07] MEDS: normal saline 1000ml 1,000 ML IV SCH ×3 (00:50→21:31)
[2022-12-07] MEDS ORDERED: QUETIAPINE 200 MG TAB.SR.24H PO SCH (01:18)
[2022-12-07] MEDS ORDERED: quetiapine fumarate ER 300mg tablet PO SCH (01:21)
[2022-12-07] MEDS: divalproex sod 250mg ER (24-hour) tablet PO SCH ×2 (01:43→21:23)
[2022-12-07] MEDS: traZODone 50mg tablet PO SCH ×2 (01:43→21:22)
[2022-12-07] MEDS: QUETIAPINE 50 MG TAB.SR.24H PO SCH ×2 (01:50→21:22)
[2022-12-07 06:00] VITALS: BP 151/78; PULSE 86; RESP 15; TEMP 96.5; O2SAT 93
[2022-12-07 06:32] LABS: BASOPHILS % (AUTO) 0.4 % (0-1); EOSINOPHILS # (AUTO) 0.4 X10'3 (0-0.9); EOSINOPHILS % (AUTO) 5.3 % (0-6); HEMATOCRIT 33.4 % (42.0-52.0); LYMPHOCYTES # (AUTO) 1.7 X10'3 (1.1-4.8); LYMPHOCYTES % (AUTO) 25.9 % (21-51); MEAN CORPUSCULAR HEMOGLOBIN 28.9 PG (27.0-31.0); MEAN CORPUSCULAR VOLUME 87.3 FL (78-98); MEAN PLATELET VOLUME 7.2 FL (7.4-10.4); MONOCYTES # (AUTO) 0.4 X10'3 (0-0.9); MONOCYTES % (AUTO) 6.4 % (2-12); NEUTROPHILS # (AUTO) 4.2 X10'3 (1.8-7.7); PLATELET COUNT 225 X10'3 (140-440); RED BLOOD COUNT 3.82 X10'6 (4.70-6.10); RED CELL DISTRIBUTION WIDTH 16.3 % (11.5-14.5); WHITE BLOOD COUNT 6.7 X10'3 (4.5-11.0)
--- NOTE | 2022-12-07 06:36 | NUR ---
Problems reprioritized. Patient report given, questions answered & plan of care reviewed with Janeen DIAMOND and Berna DIAMOND.
--- NOTE | 2022-12-07 06:36 | NUR ---
Patient in room ORTHO 4006. I have received report from DARA Yoo and had the opportunity to ask questions and assume patient care.
--- NOTE | 2022-12-07 06:36 | NUR ---
patient no the best historian. Caregiver barry contacted with regards meds. Unable to say when he had vaccines etc for history. Medicated x1 for pain, with mod results. No BM as yet is in isolation for R/O cdiff. Slept on and off during shift manager. Report given to Janeen DIAMOND
--- NOTE | 2022-12-07 06:38 | NUR ---
I agree with charting of Fredo DIAMOND.
[2022-12-07 06:56] LABS: ALANINE AMINOTRANSFERASE 14 U/L (12-78); ALBUMIN 2.5 G/DL (3.4-5.0); ALBUMIN/GLOBULIN RATIO 0.6 (1.1-1.5); ALKALINE PHOSPHATASE 72 IU/L (46-116); ANION GAP 8 (8-16); ASPARTATE AMINO TRANSFERASE 17 U/L (10-37); BILIRUBIN,TOTAL 0.3 MG/DL (0.1-1.0); BLOOD UREA NITROGEN 16 MG/DL (7-18); BUN/CREATININE RATIO 11.8 (10.0-20.0); CALCIUM 8.3 MG/DL (8.5-10.1); CHLORIDE 110 MMOL/L (99-107); CREATININE 1.36 MG/DL (0.60-1.10); GLUCOSE 70 MG/DL (70-104); MAGNESIUM 1.7 MG/DL (1.5-2.4); SODIUM 141 MMOL/L (135-145); TOTAL CARBON DIOXIDE 22.6 MMOL/L (24-32); TOTAL PROTEIN 6.8 G/DL (6.4-8.2); eCRCL 51 ML/MIN; eGFR 53 ML/MIN
--- NOTE | 2022-12-07 07:39 | NUR ---
PAGER ID: [phone] MESSAGE: Burton Lex in [phone] - blood glucose is 65. Pt is diabetic, not on protocol. -Janeen [phone]
[2022-12-07] MEDS: levoTHYROXINE 25mcg tablet PO SCH (07:40)
[2022-12-07 08:00] VITALS: RESP 15; O2SAT 93
[2022-12-07] MEDS: K and/or MAG REPLACEMENT MC SCH ×2 (08:00→20:00)
[2022-12-07] MEDS: HYDROcodone/acetaminophen 5mg/325mg tablet PO PRN ×2 (08:01→17:34)
[2022-12-07] MEDS: cetirizine 10mg tablet PO SCH (08:01)
[2022-12-07] MEDS: aspirin 81mg tab.chew PO SCH (08:02)
[2022-12-07] MEDS: losartan 50mg tablet PO SCH (08:02)
[2022-12-07] MEDS: pantoprazole 40mg Tablet.DR PO SCH (08:02)
[2022-12-07] MEDS ORDERED: BUPR-297 PO (08:31)
[2022-12-07] MEDS ORDERED: QUET-28 PO (08:32)
[2022-12-07] MEDS ORDERED: QUET300T91 PO (08:32)
[2022-12-07] MEDS ORDERED: GABA300C PO (08:34)
[2022-12-07] MEDS ORDERED: FERR325T32 PO (08:37)
[2022-12-07] MEDS ORDERED: ATOR40TA71 PO (08:37)
[2022-12-07] MEDS ORDERED: LEVA15HF6 PO (08:38)
[2022-12-07] MEDS ORDERED: ALBU18HF2 INH (08:39)
[2022-12-07] MEDS ORDERED: ASPI-1397 PO (08:39)
[2022-12-07] MEDS ORDERED: D-MA500C PO (08:40)
[2022-12-07] MEDS ORDERED: CRAN500C4 PO (08:42)
[2022-12-07] MEDS ORDERED: MULT-1074 PO (08:42)
[2022-12-07 10:30] VITALS: BP 120/82; PULSE 99; RESP 12; TEMP 98.4; O2SAT 95
--- NOTE | 2022-12-07 11:09 | NUR ---
pt blood glucose was 65 and was given orange juice, rechecked BS 15 minutes after and it was 85. Gave pt more orange juice and rechecked BS 30minutes later it was 157. Will continue to monitor patient, stable at this time.
[2022-12-07] MEDS: CefTRIAXone/D5W-Rocephin 1gm 50 ML IV SCH (12:17)
--- NOTE | 2022-12-07 15:54 | NUR ---
PAGER ID: [phone] MESSAGE: Burton Serra in [phone] has a chronic lugo that was due to be changed yesterday. Do you want us to replace it with a new one? -Janeen [phone]
--- NOTE | 2022-12-07 16:45 | NUR ---
Malnutrition consult: Pt admit for diarrhea with prior constipation for a week per EMR. Per RN malnutrition screen pt reports 2-13 pound wt loss and a decreased in PO intake/appetite. Pt seen at bedside and states his UBW is 200 pounds but cannot remember last time he weighed that. Pt appeared uncertain with his reporting. Pt states some weight loss in the last 3 weeks however did not know how much. Scaled wt this admit of 65kg (143 pounds) is lower than reported UBW however unsure of overall wt loss accuracy. No other relevant recent wt hx in EMR. Pt is currently on clear liquids with 0-25% intake for two meals. Pt states he does not want to try ensure clear at this time however is "fine" with a regular protein supplement since he sometimes drinks them at home. Recommend once advanced to at least full liquids Ensure Enlive TIDWM to better estimated needs. Pt physically had signs of mild wasting to orbital region, episcopalian region, and clavicle region indicating mild fat and muscle loss at this time. Additionally pt has documented mild weakness. Pt met a minimum of two malnutrition criteria at this time. LBM on 12/06 per EMR. Will continue to follow. Recommendations: 1. advance diet as tolerated to regular 2. once advanced to at least full liquids, Ensure Enlive TIDWM 3. routine bowel care 4. weekly wts Addendum: 12/07/22 at [address] Amended: Links added.
--- NOTE | 2022-12-07 17:59 | NUR ---
BS at 1700 was 67 and given x2 orange juice since there is no protocol to follow. 15 minutes later BS is 97. Pt stated he would drink protein shakes if given to him to help meet more nutrition.
[2022-12-07 18:00] VITALS: BP 106/67; PULSE 76; RESP 12; TEMP 97.7; O2SAT 96
--- NOTE | 2022-12-07 18:21 | NUR ---
Problems reprioritized. Patient report given, questions answered & plan of care reviewed with DANII Yoo.
--- NOTE | 2022-12-07 18:43 | NUR ---
Patient in room ORTHO 4006. I have received report from Berna DIAMOND and had the opportunity to ask questions and assume patient care.
[2022-12-07] MEDS: quetiapine fumarate ER 300mg tablet PO SCH (21:22)
[2022-12-07] MEDS: ROSUVASTATIN CALCIUM 5 MG TABLET PO SCH (21:23)
[2022-12-07 22:00] VITALS: BP 128/71; PULSE 72; RESP 15; TEMP 98.6; O2SAT 95
--- NOTE | 2022-12-08 03:15 | NUR ---
DANII orientee documentation: I have reviewed and agree with all interventions, assessments performed and documented by Fredo Marte LVN .
[2022-12-08 06:00] VITALS: BP 140/79; PULSE 80; RESP 17; TEMP 98.4; O2SAT 95
--- NOTE | 2022-12-08 06:24 | NUR ---
Patient in room ORTHO 4006. I have received report from Fredo and had the opportunity to ask questions and assume patient care.
[2022-12-08 06:50] LABS: BASOPHILS % (AUTO) 0.7 % (0-1); EOSINOPHILS # (AUTO) 0.6 X10'3 (0-0.9); EOSINOPHILS % (AUTO) 9.6 % (0-6); HEMATOCRIT 30.5 % (42.0-52.0); HEMOGLOBIN 10.1 g/dl (14.0-17.9); LYMPHOCYTES # (AUTO) 2.1 X10'3 (1.1-4.8); LYMPHOCYTES % (AUTO) 32.2 % (21-51); MEAN CORPUSCULAR HEMOGLOBIN 29.1 PG (27.0-31.0); MEAN CORPUSCULAR HGB CONC 33.1 g/dL (33.0-36.5); MEAN CORPUSCULAR VOLUME 87.9 FL (78-98); MEAN PLATELET VOLUME 7.1 FL (7.4-10.4); MONOCYTES # (AUTO) 0.5 X10'3 (0-0.9); MONOCYTES % (AUTO) 7.7 % (2-12); NEUTROPHILS # (AUTO) 3.2 X10'3 (1.8-7.7); NEUTROPHILS % (AUTO) 49.8 % (42-75); PLATELET COUNT 212 X10'3 (140-440); RED BLOOD COUNT 3.47 X10'6 (4.70-6.10); RED CELL DISTRIBUTION WIDTH 16.3 % (11.5-14.5); WHITE BLOOD COUNT 6.5 X10'3 (4.5-11.0)
[2022-12-08] MEDS: K and/or MAG REPLACEMENT MC SCH ×2 (07:02→20:00)
[2022-12-08] MEDS: metroNIDAZOLE-Flagyl 500mg/NS 100 ML IV SCH ×3 (07:05→23:29)
[2022-12-08] MEDS: levoTHYROXINE 25mcg tablet PO SCH ×2 (07:06→07:27)
[2022-12-08] MEDS: pantoprazole 40mg Tablet.DR PO SCH ×2 (07:06→07:28)
[2022-12-08] MEDS: normal saline 1000ml 1,000 ML IV SCH ×2 (07:06→19:00)
[2022-12-08 07:09] LABS: ALANINE AMINOTRANSFERASE 7 U/L (12-78); ALBUMIN 2.3 G/DL (3.4-5.0); ALBUMIN/GLOBULIN RATIO 0.7 (1.1-1.5); ALKALINE PHOSPHATASE 69 IU/L (46-116); ANION GAP 8 (8-16); ASPARTATE AMINO TRANSFERASE 16 U/L (10-37); BILIRUBIN,TOTAL 0.3 MG/DL (0.1-1.0); BLOOD UREA NITROGEN 12 MG/DL (7-18); CALCIUM 7.9 MG/DL (8.5-10.1); CHLORIDE 109 MMOL/L (99-107); CREATININE 1.33 MG/DL (0.60-1.10); GLUCOSE 76 MG/DL (70-104); MAGNESIUM 1.8 MG/DL (1.5-2.4); POTASSIUM 4.1 MMOL/L (3.5-5.1); SODIUM 139 MMOL/L (135-145); TOTAL CARBON DIOXIDE 21.8 MMOL/L (24-32); TOTAL PROTEIN 5.7 G/DL (6.4-8.2); eCRCL 52 ML/MIN; eGFR 54 ML/MIN
[2022-12-08] MEDS: losartan 50mg tablet PO SCH (07:29)
[2022-12-08] MEDS: aspirin 81mg tab.chew PO SCH (07:30)
[2022-12-08] MEDS: cetirizine 10mg tablet PO SCH (07:30)
[2022-12-08] MEDS: CefTRIAXone/D5W-Rocephin 1gm 50 ML IV SCH (08:48)
[2022-12-08 10:00] VITALS: BP 124/66; PULSE 63; RESP 12; TEMP 98.3; O2SAT 98
[2022-12-08 12:16] LABS: % IRON SATURATION 8 % (11-46); IRON 18 UG/DL (53-167); TOTAL IRON BINDING CAPACITY 233 UG/DL (259-388)
[2022-12-08 14:05] LABS: THYROID STIMULATING HORMONE 0.99 ulU/ml (0.34-4.50)
--- NOTE | 2022-12-08 15:27 | NUR ---
Pt has chronic lugo catheter that was due to be changed on 12/06/22. D/C'd pt's lugo catheter and inserted new 16F lugo. Pt tolerated well.
[2022-12-08 18:00] VITALS: BP 140/77; PULSE 73; RESP 15; TEMP 98.2; O2SAT 97
[2022-12-08 20:00] VITALS: RESP 18; O2SAT 97
[2022-12-08] MEDS: ROSUVASTATIN CALCIUM 5 MG TABLET PO SCH (21:10)
[2022-12-08] MEDS: QUETIAPINE 50 MG TAB.SR.24H PO SCH (21:11)
[2022-12-08] MEDS: quetiapine fumarate ER 300mg tablet PO SCH (21:13)
[2022-12-08] MEDS: divalproex sod 250mg ER (24-hour) tablet PO SCH (21:15)
[2022-12-08] MEDS: traZODone 50mg tablet PO SCH (21:16)
[2022-12-08 22:00] VITALS: BP 162/68; PULSE 59; RESP 16; TEMP 98.2; O2SAT 99
[2022-12-08] MEDS ORDERED: bisacodyl 10mg suppository rectal RC PRN (23:15)
[2022-12-09] MEDS: HYDROcodone/acetaminophen 10/325mg tab PO PRN (00:29)
[2022-12-09] MEDS: normal saline 1000ml 1,000 ML IV SCH ×3 (02:50→20:41)
--- NOTE | 2022-12-09 06:35 | NUR ---
Patient in room ORTHO 4006. I have received report from Silvia DIAMOND and had the opportunity to ask questions and assume patient care.
--- NOTE | 2022-12-09 06:37 | NUR ---
Problems reprioritized. Patient report given, questions answered & plan of care reviewed with Omid Porter RN.
[2022-12-09 06:43] LABS: BASOPHILS % (AUTO) 0.6 % (0-1); EOSINOPHILS # (AUTO) 0.6 X10'3 (0-0.9); EOSINOPHILS % (AUTO) 9.8 % (0-6); HEMATOCRIT 29.4 % (42.0-52.0); LYMPHOCYTES # (AUTO) 1.8 X10'3 (1.1-4.8); LYMPHOCYTES % (AUTO) 31.8 % (21-51); MEAN CORPUSCULAR HEMOGLOBIN 29.3 PG (27.0-31.0); MEAN CORPUSCULAR HGB CONC 33.9 g/dL (33.0-36.5); MEAN CORPUSCULAR VOLUME 86.5 FL (78-98); MEAN PLATELET VOLUME 6.9 FL (7.4-10.4); MONOCYTES # (AUTO) 0.4 X10'3 (0-0.9); MONOCYTES % (AUTO) 6.8 % (2-12); NEUTROPHILS # (AUTO) 2.9 X10'3 (1.8-7.7); PLATELET COUNT 217 X10'3 (140-440); WHITE BLOOD COUNT 5.7 X10'3 (4.5-11.0)
[2022-12-09 06:44] VITALS: BP 159/72; PULSE 73; RESP 16; TEMP 97.6; O2SAT 98
[2022-12-09 07:01] LABS: ALANINE AMINOTRANSFERASE 12 U/L (12-78); ALBUMIN 2.3 G/DL (3.4-5.0); ALBUMIN/GLOBULIN RATIO 0.7 (1.1-1.5); ALKALINE PHOSPHATASE 67 IU/L (46-116); ANION GAP 5 (8-16); ASPARTATE AMINO TRANSFERASE 17 U/L (10-37); BILIRUBIN,TOTAL 0.2 MG/DL (0.1-1.0); BLOOD UREA NITROGEN 15 MG/DL (7-18); BUN/CREATININE RATIO 11.1 (10.0-20.0); CALCIUM 7.7 MG/DL (8.5-10.1); CHLORIDE 110 MMOL/L (99-107); CREATININE 1.35 MG/DL (0.60-1.10); GLUCOSE 76 MG/DL (70-104); MAGNESIUM 1.6 MG/DL (1.5-2.4); POTASSIUM 4.1 MMOL/L (3.5-5.1); SODIUM 140 MMOL/L (135-145); TOTAL CARBON DIOXIDE 24.8 MMOL/L (24-32); TOTAL PROTEIN 5.6 G/DL (6.4-8.2); eCRCL 51 ML/MIN; eGFR 53 ML/MIN
[2022-12-09] MEDS: aspirin 81mg tab.chew PO SCH (07:36)
[2022-12-09] MEDS: cetirizine 10mg tablet PO SCH (07:36)
[2022-12-09] MEDS: metroNIDAZOLE-Flagyl 500mg/NS 100 ML IV SCH ×2 (07:37→15:46)
[2022-12-09] MEDS: losartan 50mg tablet PO SCH (07:37)
[2022-12-09] MEDS: pantoprazole 40mg Tablet.DR PO SCH (07:37)
[2022-12-09] MEDS: K and/or MAG REPLACEMENT MC SCH ×2 (07:40→20:32)
[2022-12-09 08:00] VITALS: RESP 18
[2022-12-09] MEDS: CefTRIAXone/D5W-Rocephin 1gm 50 ML IV SCH (09:20)
[2022-12-09 10:09] VITALS: BP 124/77; PULSE 59; RESP 15; TEMP 98.1; O2SAT 100
--- NOTE | 2022-12-09 10:35 | NUR ---
Reassessment: Diet was advanced to heart healthy starting dinner 12/08 and pt eating well, documented with average 94% PO intake of first two meals on solid diet. Pt needs an average of 77% PO intake of meals to meet 100% estimated protein and energy needs. LBM 12/08 x 2 per I&O. Pt with PRN bowel care available, last given 12/08 per EMR. No nutrition intervention implemented at this time. Will continue to follow and make recommendations as appropriate. Recommendations: 1. Continue heart healthy diet 2. Monitor need for ONS/additional protein 3. Routine bowel care 4. Weekly scaled weights Addendum: 12/09/22 at [address] Amended: Links added.
[2022-12-09] MEDS ORDERED: OMEP20TA43 PO (13:53)
[2022-12-09] MEDS ORDERED: aspirin 81mg, enteric-coated 1 TAB TABLET.DR PO SCH (14:10)
[2022-12-09] MEDS ORDERED: LEVALBUTEROL TARTRATE PO PRN (14:10)
--- NOTE | 2022-12-09 15:24 | NUR ---
PAGER ID: [phone] MESSAGE: Omid Iglesias [phone] re: [phone] Narda Serra Patient manager home healthcare states that abdomn tenderness is new and not original complaint. Colonoscopy not scheduled at this time. Thanks Addendum: 12/09/22 at 1837 by Perry Porter RN received orders from at this time, discharge on hold
[2022-12-09] MEDS: ferrous sulfate 325mg tablet PO SCH (15:45)
[2022-12-09] MEDS ORDERED: albuterol 2.5 MG/3 ML nebule NEB PRN (16:00)
[2022-12-09 18:00] VITALS: BP 149/70; PULSE 48; RESP 15; TEMP 97.7; O2SAT 99
--- NOTE | 2022-12-09 18:35 | NUR ---
Problems reprioritized. Patient report given, questions answered & plan of care reviewed with Prudence RN.
--- NOTE | 2022-12-09 19:24 | NUR ---
Patient in room ORTHO 4006. I have received report from RUPA DIAMOND and had the opportunity to ask questions and assume patient care.
[2022-12-09 20:00] VITALS: RESP 15; O2SAT 99
[2022-12-09] MEDS: ROSUVASTATIN CALCIUM 5 MG TABLET PO SCH (20:39)
[2022-12-09] MEDS: pantoprazole 40MG/NS 100ML BAG 100 ML IV SCH (20:39)
[2022-12-09] MEDS: QUETIAPINE 50 MG TAB.SR.24H PO SCH (20:40)
[2022-12-09] MEDS: traZODone 50mg tablet PO SCH (20:40)
[2022-12-09] MEDS: gabapentin 300mg capsule PO SCH (20:40)
[2022-12-09] MEDS: quetiapine fumarate ER 300mg tablet PO SCH (20:40)
[2022-12-09] MEDS: divalproex sod 250mg ER (24-hour) tablet PO SCH (20:41)
[2022-12-09] MEDS ORDERED: QUETIAPINE 200 MG TAB.SR.24H PO SCH (21:00)
[2022-12-09] MEDS ORDERED: non-formulary drug (Quetiapine Fumarate (Quetiapine Fumarate ER) 1 TAB) PO SCH (21:00)
[2022-12-09 22:00] VITALS: BP 133/70; PULSE 55; RESP 14; TEMP 98.2; O2SAT 98
[2022-12-10] MEDS: metroNIDAZOLE-Flagyl 500mg/NS 100 ML IV SCH (00:29)
[2022-12-10] MEDS: normal saline 1000ml 1,000 ML IV SCH (05:00)
[2022-12-10 06:17] LABS: BASOPHILS % (AUTO) 0.7 % (0-1); EOSINOPHILS # (AUTO) 0.8 X10'3 (0-0.9); HEMATOCRIT 30.1 % (42.0-52.0); LYMPHOCYTES # (AUTO) 2.1 X10'3 (1.1-4.8); LYMPHOCYTES % (AUTO) 38.1 % (21-51); MEAN CORPUSCULAR HEMOGLOBIN 28.8 PG (27.0-31.0); MEAN CORPUSCULAR HGB CONC 33.3 g/dL (33.0-36.5); MEAN CORPUSCULAR VOLUME 86.4 FL (78-98); MEAN PLATELET VOLUME 7.1 FL (7.4-10.4); MONOCYTES # (AUTO) 0.5 X10'3 (0-0.9); MONOCYTES % (AUTO) 8.6 % (2-12); NEUTROPHILS # (AUTO) 2.1 X10'3 (1.8-7.7); NEUTROPHILS % (AUTO) 38.6 % (42-75); PLATELET COUNT 227 X10'3 (140-440); RED BLOOD COUNT 3.48 X10'6 (4.70-6.10); WHITE BLOOD COUNT 5.5 X10'3 (4.5-11.0)
--- NOTE | 2022-12-10 06:21 | NUR ---
Problems reprioritized. Patient report given, questions answered & plan of care reviewed with RUPA RN.
[2022-12-10 06:35] LABS: ALANINE AMINOTRANSFERASE 12 U/L (12-78); ALBUMIN 2.2 G/DL (3.4-5.0); ALBUMIN/GLOBULIN RATIO 0.7 (1.1-1.5); ALKALINE PHOSPHATASE 55 IU/L (46-116); ANION GAP 8 (8-16); ASPARTATE AMINO TRANSFERASE 18 U/L (10-37); BILIRUBIN,TOTAL 0.3 MG/DL (0.1-1.0); BLOOD UREA NITROGEN 17 MG/DL (7-18); BUN/CREATININE RATIO 12.8 (10.0-20.0); CALCIUM 8.1 MG/DL (8.5-10.1); CHLORIDE 111 MMOL/L (99-107); CREATININE 1.33 MG/DL (0.60-1.10); GLUCOSE 76 MG/DL (70-104); LIPASE < 50 U/L (73-393); MAGNESIUM 1.7 MG/DL (1.5-2.4); POTASSIUM 4.1 MMOL/L (3.5-5.1); SODIUM 141 MMOL/L (135-145); TOTAL CARBON DIOXIDE 22.2 MMOL/L (24-32); TOTAL PROTEIN 5.5 G/DL (6.4-8.2); eCRCL 52 ML/MIN; eGFR 54 ML/MIN
[2022-12-10 06:47] VITALS: BP 148/67; PULSE 50; RESP 14; TEMP 98.2; O2SAT 97
--- NOTE | 2022-12-10 07:14 | NUR ---
Patient in room ORTHO 4006. I have received report from Arlene DIAMOND and had the opportunity to ask questions and assume patient care.
[2022-12-10 08:00] VITALS: RESP 18
[2022-12-10] MEDS ORDERED: non-formulary drug (Atorvastatin Calcium 1 TAB) PO SCH (08:00)
[2022-12-10] MEDS ORDERED: buPROPion 75mg tablet PO SCH (08:00)
[2022-12-10] MEDS ORDERED: D MANNOSE PO SCH (08:00)
[2022-12-10] MEDS ORDERED: CRANBERRY EXTRACT PO SCH (08:00)
[2022-12-10] MEDS: K and/or MAG REPLACEMENT MC SCH (08:00)
[2022-12-10] MEDS ORDERED: multivitamins, therapeutics tablet PO SCH (08:00)
[2022-12-10] MEDS: aspirin 81mg tab.chew PO SCH (09:01)
[2022-12-10] MEDS: levoTHYROXINE 25mcg tablet PO SCH (09:01)
[2022-12-10] MEDS: cetirizine 10mg tablet PO SCH (09:03)
[2022-12-10] MEDS: gabapentin 300mg capsule PO SCH (09:03)
[2022-12-10] MEDS: losartan 50mg tablet PO SCH (09:03)
[2022-12-10] MEDS: ferrous sulfate 325mg tablet PO SCH (09:04)
[2022-12-10] MEDS: pantoprazole 40MG/NS 100ML BAG 100 ML IV SCH (09:04)
[2022-12-10 10:00] VITALS: BP 148/82; PULSE 57; RESP 12; TEMP 97.8; O2SAT 96
[2022-12-10] MEDS ORDERED: levoFLOXACIN 500mg tablet PO SCH (11:00)
[2022-12-10] MEDS ORDERED: LEVO-65 PO (12:16)
[2022-12-10] MEDS ORDERED: METR-159 PO (14:08)
--- NOTE | 2022-12-10 16:21 | NUR ---
Patient discharge with animal caregiver in room. Patient and caregiver aware that patient needs a follow up with primary in one weeks time. Patient was educated on new medication that were sent to pharmacy and changed made to existing medications as well. Patient left with all belongings according to caregiver, but was later to have found that wheelchair pad was not with patient. Pad was found in room and patient caregiver will return for pickup at later time. Patient was taken down to private vehicle at discharge. IV taken out by charge nurse.
== END 2022-12-10 15:30 | disposition home health service (06) | DRG 698 ==
LOC: ER 05:07 → ED HOLD 14:54 → ORTHO 4S 18:35
PROVIDERS: ADMIT Internal Medicine; ATTEND Internal Medicine
PROC: BW211ZZ Computerized Tomography (CT Scan) of Abdomen and Pelvis using Low Osmolar Contrast (ICD-10-PCS; principal; 2022-12-06)
DX: T83.511A Infection and inflammatory reaction due to indwelling urethral catheter, initial encounter (principal); E43 Unspecified severe protein-calorie malnutrition; N17.0 Acute kidney failure with tubular necrosis; A09 Infectious gastroenteritis and colitis, unspecified; G81.94 Hemiplegia, unspecified affecting left nondominant side; D64.9 Anemia, unspecified; E11.51 Type 2 diabetes mellitus with diabetic peripheral angiopathy without gangrene; B96.5 Pseudomonas (aeruginosa) (mallei) (pseudomallei) as the cause of diseases classified elsewhere; E78.00 Pure hypercholesterolemia, unspecified; F25.9 Schizoaffective disorder, unspecified; E03.9 Hypothyroidism, unspecified; B95.2 Enterococcus as the cause of diseases classified elsewhere; F12.90 Cannabis use, unspecified, uncomplicated; I12.9 Hypertensive chronic kidney disease with stage 1 through stage 4 chronic kidney disease, or unspecified chronic kidney disease; E11.22 Type 2 diabetes mellitus with diabetic chronic kidney disease; N18.30 Chronic kidney disease, stage 3 unspecified; I25.10 Atherosclerotic heart disease of native coronary artery without angina pectoris; F32.A Depression, unspecified; K59.00 Constipation, unspecified; Z79.899 Other long term (current) drug therapy; Z81.8 Family history of other mental and behavioral disorders; Z86.73 Personal history of transient ischemic attack (TIA), and cerebral infarction without residual deficits; Z88.8 Allergy status to other drugs, medicaments and biological substances; Z95.5 Presence of coronary angioplasty implant and graft; Z88.1 Allergy status to other antibiotic agents; Z95.1 Presence of aortocoronary bypass graft; Z56.0 Unemployment, unspecified; Z99.3 Dependence on wheelchair; Z98.42 Cataract extraction status, left eye; Z98.41 Cataract extraction status, right eye; Z79.82 Long term (current) use of aspirin; Z68.22 Body mass index [BMI] 22.0-22.9, adult
CPT/HCPCS: 36415; 71045; 74177; 76700; 80053; 80305; 81001; 82150; 82550; 82948; 83540; 83550; 83605; 83690; 83735; 84443; 84484; 85025; 85610; 85730; 86885; 86900; 86901; 87040; 87077; 87081; 87088; 87186; 93005; 97161; 97530; 99285; A4314; A6258; C9113; G0378; J0696; J2270; J2405; J3010; J3490; J7030; Q9967

== ENCOUNTER 2022-12-18 09:58 | Emergency (ER) | payer MEDICARE, MEDICAID ==
[~2022-12-18] VITALS: Ht 157.5 cm; Wt 59.1 kg
[~2022-12-18 09:58] MED LIST changes: +ALBU18HF2 INH; -ASPI-1265 PO; +ASPI-1397 PO; +ATOR40TA71 PO; +BUPR-297 PO; -CETI-90 PO; -CLOP75TA34 PO; +CRAN500C4 PO; +D-MA500C PO; +FERR325T32 PO; +GABA300C PO; +LEVA15HF6 PO; +LEVO-65 PO; +METR-159 PO; +MULT-1074 PO; -OMEP20CA16 PO; +OMEP20TA43 PO; +QUET-28 PO; +QUET300T91 PO; -QUET400T54 PO; -ROSU10TA28 PO
[2022-12-18 10:13] VITALS: TEMP 98
[2022-12-18 11:00] LABS: BASOPHILS % (AUTO) 0.5 % (0-1); EOSINOPHILS # (AUTO) 0.3 X10'3 (0-0.9); EOSINOPHILS % (AUTO) 6.2 % (0-6); HEMATOCRIT 31.3 % (42.0-52.0); HEMOGLOBIN 10.5 g/dl (14.0-17.9); LYMPHOCYTES # (AUTO) 1.1 X10'3 (1.1-4.8); LYMPHOCYTES % (AUTO) 19.9 % (21-51); MEAN CORPUSCULAR HEMOGLOBIN 29.3 PG (27.0-31.0); MEAN CORPUSCULAR HGB CONC 33.7 g/dL (33.0-36.5); MEAN CORPUSCULAR VOLUME 86.9 FL (78-98); MEAN PLATELET VOLUME 6.8 FL (7.4-10.4); MONOCYTES # (AUTO) 0.4 X10'3 (0-0.9); NEUTROPHILS # (AUTO) 3.6 X10'3 (1.8-7.7); NEUTROPHILS % (AUTO) 65.4 % (42-75); PLATELET COUNT 222 X10'3 (140-440); RED CELL DISTRIBUTION WIDTH 16.2 % (11.5-14.5); WHITE BLOOD COUNT 5.5 X10'3 (4.5-11.0)
[2022-12-18 11:16] LABS: ALANINE AMINOTRANSFERASE 12 U/L (12-78); ALBUMIN 2.6 G/DL (3.4-5.0); ALBUMIN/GLOBULIN RATIO 0.7 (1.1-1.5); ALKALINE PHOSPHATASE 65 IU/L (46-116); ANION GAP 10 (8-16); ASPARTATE AMINO TRANSFERASE 21 U/L (10-37); BILIRUBIN,TOTAL 0.2 MG/DL (0.1-1.0); BLOOD UREA NITROGEN 21 MG/DL (7-18); BUN/CREATININE RATIO 12.9 (10.0-20.0); CHLORIDE 101 MMOL/L (99-107); CREATININE 1.63 MG/DL (0.60-1.10); GLUCOSE 98 MG/DL (70-104); SODIUM 134 MMOL/L (135-145); TOTAL CARBON DIOXIDE 22.9 MMOL/L (24-32); TOTAL PROTEIN 6.3 G/DL (6.4-8.2); eCRCL 36 ML/MIN; eGFR 43 ML/MIN
[2022-12-18 11:19] LABS: LACTIC SEPSIS 1.5 MMOL/L (0.4-2.0)
--- NOTE | 2022-12-18 11:34 | NUR ---
RN PERFORMED NEURO ASSESSMENT ON PT AND PER PT HE HAS HX OF STROKE AND LEFT SIDE WEAKNESS. PT AAOX4/FOLLOWING COMMANDS/NO FACIAL DROOP OR SIGN OF STROKE. PER PT HIS CAREGIVER CALLED [phone] BECAUSE HE WAS SLEEPY. RN WILL CONT TO MONITOR.
[2022-12-18] MEDS ORDERED: normal saline 1000ml 1,000 ML IV SCH (12:40)
--- NOTE | 2022-12-18 14:01 | NUR ---
RN ATTEMPTING IV AT THIS TIME. ONCE OBTAINED NS WILL BE ADMIN.
[2022-12-18 14:14] LABS: BILIRUBIN,URINE NEGATIVE (Neg); CLARITY,URINE CLEAR (Clear); COLOR,URINE YELLOW (Yellow); GLUCOSE, URINE NEGATIVE (Neg); KETONES,URINE NEGATIVE (Neg); LEUKOCYTE ESTERASE ,URINE NEGATIVE (Neg); NITRITES, URINE NEGATIVE (Neg); OCCULT BLOOD,URINE NEGATIVE (Neg); PH,URINE 6.5 (4.8-8.0); PROTEIN,URINE 30 mg/dl (Neg); UROBILINOGEN,URINE 0.2 E.U/dL (0.2-1.0)
[2022-12-18 14:16] LABS: UA COLLECTION TYPE STRAIGHT CATH
[2022-12-18 14:35] LABS: RBC,URINE NONE SEEN /HPF (0-2); WBC,URINE 0-4 /HPF (0-4)
[2022-12-18 14:36] LABS: BACTERIA,URINE NONE SEEN /HPF (Neg); MUCUS STRANDS FEW /LPF (Neg); SQUAMOUS EPITHELIAL CELL,UR FEW /LPF (FEW)
--- NOTE | 2022-12-18 15:50 | NUR ---
RN CK PT BG AND IT WAS 64. RN PROVIDED 240 CC JUICE AND WILL CARIDAD PT. PT WAS A HARD STICK. RN WAS ABLE TO OBTAIN A 22G IN PT RIGHT HAND AND NS BOLUS IS INFUSING SLOWLY. PRESSURE BAG APPLIED. RN WILL DISCHARGE PT AFTER BOLUS COMPLETED. RN NOTIFIED DR MITCHELL OF PT STATUS AND BG.
--- NOTE | 2022-12-18 17:11 | NUR ---
RN CARIDAD PT BG 93. PT CAREGIVER JACQUELINE AT BEDSIDE. RN EDUCATED JACQUELINE IF PT DOES NOT EAT A MEAL TO GIVE HIM A GLASS OF JUICE/IF PT HAS HYPOGLYCEMIC SX TO CK SUGAR AND IF LESS THAN 70 GIVE GLASS OF JUICE AND CARIDAD IN 15 MINS AND IF NOT GREATER THAN 70 GIVE ANOTHER GLASS OF JUICE AND CARIDAD IN 15 MINS AND IF STILL LESS THAN 70 BRING PT TO THE ED. RN ALSO ADVISED JACQUELINE TO CONTACT HIS MD RIGHT AWAY AND LET THEM KNOW THAT PT IS NOT EATING WELL AND THE INSTRUCTIONS PROVIDED. JACQUELINE VERBALIZED UNDERSTANDING.
[2022-12-18 18:15] VITALS: BP 133/72; PULSE 70; RESP 14; O2SAT 95
== END 2022-12-18 18:28 | disposition home or self-care (01) ==
LOC: ER 10:01
DX: F31.9 Bipolar disorder, unspecified (principal); R41.82 Altered mental status, unspecified; I11.9 Hypertensive heart disease without heart failure; E78.00 Pure hypercholesterolemia, unspecified; F20.9 Schizophrenia, unspecified; Z59.00 Homelessness unspecified
CPT/HCPCS: 36415; 70450; 71045; 80053; 81001; 82140; 82948; 83605; 85025; 99285; J7030

== ENCOUNTER 2023-01-05 11:50 | Inpatient (IN) | payer MEDICARE, MEDICAID ==
[~2023-01-05] VITALS: Ht 167.6 cm; Wt 60.0 kg
[~2023-01-05 11:50] MED LIST changes: -LEVO-65 PO
[2023-01-05 13:04] LABS: BASOPHILS % (AUTO) 0.2 % (0-1); EOSINOPHILS # (AUTO) 0.1 X10'3 (0-0.9); EOSINOPHILS % (AUTO) 0.6 % (0-6); HEMATOCRIT 40.8 % (42.0-52.0); LYMPHOCYTES # (AUTO) 0.8 X10'3 (1.1-4.8); LYMPHOCYTES % (AUTO) 8.2 % (21-51); MEAN CORPUSCULAR HEMOGLOBIN 29.5 PG (27.0-31.0); MEAN CORPUSCULAR HGB CONC 34.3 g/dL (33.0-36.5); MEAN PLATELET VOLUME 7.6 FL (7.4-10.4); MONOCYTES # (AUTO) 0.9 X10'3 (0-0.9); MONOCYTES % (AUTO) 9.2 % (2-12); NEUTROPHILS # (AUTO) 8.4 X10'3 (1.8-7.7); NEUTROPHILS % (AUTO) 81.8 % (42-75); PLATELET COUNT 268 X10'3 (140-440); RED BLOOD COUNT 4.74 X10'6 (4.70-6.10); RED CELL DISTRIBUTION WIDTH 15.2 % (11.5-14.5); WHITE BLOOD COUNT 10.3 X10'3 (4.5-11.0)
[2023-01-05 13:21] LABS: ALANINE AMINOTRANSFERASE 30 U/L (12-78); ALBUMIN 3.4 G/DL (3.4-5.0); ALBUMIN/GLOBULIN RATIO 0.7 (1.1-1.5); ALKALINE PHOSPHATASE 103 IU/L (46-116); ANION GAP 11 (8-16); ASPARTATE AMINO TRANSFERASE 34 U/L (10-37); BILIRUBIN,TOTAL 0.5 MG/DL (0.1-1.0); BLOOD UREA NITROGEN 17 MG/DL (7-18); CALCIUM 9.3 MG/DL (8.5-10.1); CHLORIDE 88 MMOL/L (99-107); CREATININE 1.31 MG/DL (0.60-1.10); GLUCOSE 153 MG/DL (70-104); POTASSIUM 3.9 MMOL/L (3.5-5.1); SODIUM 126 MMOL/L (135-145); TOTAL CARBON DIOXIDE 26.7 MMOL/L (24-32); TOTAL PROTEIN 8.2 G/DL (6.4-8.2); eCRCL 48 ML/MIN; eGFR 55 ML/MIN
[2023-01-05] MEDS ORDERED: normal saline 1000ML IV soln IVB ONE (15:30)
[2023-01-05 15:35] LABS: BILIRUBIN,URINE NEGATIVE (Neg); CLARITY,URINE CLEAR (Clear); COLOR,URINE YELLOW (Yellow); GLUCOSE, URINE NEGATIVE (Neg); KETONES,URINE 15 mg/dl (Neg); LEUKOCYTE ESTERASE ,URINE TRACE (Neg); NITRITES, URINE NEGATIVE (Neg); OCCULT BLOOD,URINE TRACE-INTACT (Neg); PROTEIN,URINE >=300 mg/dl (Neg); UROBILINOGEN,URINE 0.2 E.U/dL (0.2-1.0)
[2023-01-05 15:38] LABS: APTT 41 SECONDS (22-32); PROTHROMBIN TIME 10.3 SECONDS (9.0-12.0)
[2023-01-05 15:38] LABS: UA COLLECTION TYPE FOLEY CATH
[2023-01-05 15:44] LABS: URINE AMPHETAMINE SCREEN NEGATIVE (Neg); URINE BARBITUATE SCREEN NEGATIVE (Neg); URINE BENZODIAZEPINES SCREEN NEGATIVE (Neg); URINE CANNABINOID SCREEN POSITIVE (Neg); URINE COCAINE SCREEN NEGATIVE (Neg); URINE METHADONE SCREEN NEGATIVE (Neg); URINE OPIATE SCREEN NEGATIVE (Neg); URINE PHENCYCLIDINE SCREEN NEGATIVE (Neg)
[2023-01-05 15:47] LABS: BACTERIA,URINE FEW /HPF (Neg); MUCUS STRANDS NONE SEEN /LPF (Neg); RBC,URINE 0-2 /HPF (0-2); SQUAMOUS EPITHELIAL CELL,UR NONE SEEN /LPF (FEW); WBC,URINE 0-4 /HPF (0-4)
[2023-01-05 16:07] LABS: MAGNESIUM 1.7 MG/DL (1.5-2.4)
[2023-01-05 16:13] LABS: ETHANOL < 10 MG/DL (<10)
[2023-01-05] MEDS ORDERED: magnesium 4gm in 100ml NS 100 ML IV PRN (17:00)
[2023-01-05] MEDS ORDERED: magnesium Cl slow-release 64mg tablet PO PRN (17:00)
[2023-01-05] MEDS ORDERED: magnesium hydroxide 30ml (MOM) UD suspension PO PRN (17:00)
[2023-01-05] MEDS ORDERED: potassium Cl 40MEQ/1/2NS 520ml 520 ML IV PRN (17:00)
[2023-01-05] MEDS ORDERED: mag hydrox/Alum hydrox/simeth 30ml oral suspension PO PRN (17:00)
[2023-01-05] MEDS ORDERED: acetaminophen 325mg tablet PO PRN (17:00)
[2023-01-05] MEDS ORDERED: magnesium 2GM in 50ml NS 50 ML IV PRN (17:00)
[2023-01-05] MEDS ORDERED: potassium Cl 20 mEq SR tablet PO PRN ×2 (17:00)
[2023-01-05] MEDS ORDERED: ondansetron/PF 4mg/2ml inj IV PRN (17:00)
[2023-01-05] MEDS ORDERED: insulin Lispro (HumaLOG) vial - multi-dose SQ SCH (17:35)
[2023-01-05] MEDS ORDERED: dextrose 50%-water 50ml dispensing syringe IV PRN ×2 (17:35)
[2023-01-05] MEDS ORDERED: DEXTROSE 15 GM of carb/4 tabs (each vial/BOTTLE has 4 tablets) PO PRN ×2 (17:35)
[2023-01-05] MEDS ORDERED: glucagon, human recombinant 1mg kit SUBCUT PRN (17:35)
[2023-01-05] MEDS ORDERED: MESSAGE TO PHARMACY PO ONE (17:35)
[2023-01-05] MEDS ORDERED: LEVALBUTEROL TARTRATE PO PRN (18:20)
[2023-01-05] MEDS: K and/or MAG REPLACEMENT MC SCH (20:00)
[2023-01-05 20:06] LABS: HEMOGLOBIN A1C 5.2 % (4.5-6.2)
[2023-01-05] MEDS: normal saline 1000ml 1,000 ML IV SCH (20:12)
[2023-01-05 20:38] LABS: AMYLASE 62 U/L (25-115); LIPASE 76 U/L (73-393)
[2023-01-05 20:39] LABS: LACTATE DEHYDROGENASE 316 U/L (85-227)
[2023-01-05] MEDS: gabapentin 300mg capsule PO SCH (20:49)
[2023-01-05] MEDS: docusate sod 100mg capsule PO SCH (20:50)
[2023-01-05] MEDS: insulin glargine (Lantus) pen - multi-dose SQ SCH (21:00)
[2023-01-05] MEDS: QUETIAPINE 50 MG TAB.SR.24H PO SCH (21:00)
[2023-01-05] MEDS: divalproex sod 250mg ER (24-hour) tablet PO SCH (21:00)
[2023-01-05] MEDS: quetiapine fumarate ER 300mg tablet PO SCH (21:00)
[2023-01-05] MEDS: albuterol 2.5 MG/3 ML nebule NEB PRN (23:57)
[2023-01-06] VITALS (8 sets, daily range): BP systolic 101–123; BP diastolic 67–73; PULSE 66–85; RESP 16; TEMP 97.1–98.8; O2SAT 93–97
[2023-01-06] MEDS ORDERED: traZODone 50mg tablet PO ONE (00:05)
[2023-01-06 04:14] LABS: BASOPHILS % (AUTO) 0.3 % (0-1); EOSINOPHILS % (AUTO) 0.5 % (0-6); HEMATOCRIT 32.8 % (42.0-52.0); LYMPHOCYTES # (AUTO) 1.7 X10'3 (1.1-4.8); MEAN CORPUSCULAR HEMOGLOBIN 29.1 PG (27.0-31.0); MEAN CORPUSCULAR HGB CONC 33.5 g/dL (33.0-36.5); MEAN CORPUSCULAR VOLUME 86.9 FL (78-98); MEAN PLATELET VOLUME 7.7 FL (7.4-10.4); MONOCYTES # (AUTO) 1.1 X10'3 (0-0.9); MONOCYTES % (AUTO) 12.7 % (2-12); NEUTROPHILS # (AUTO) 5.7 X10'3 (1.8-7.7); NEUTROPHILS % (AUTO) 66.5 % (42-75); PLATELET COUNT 196 X10'3 (140-440); RED BLOOD COUNT 3.77 X10'6 (4.70-6.10); RED CELL DISTRIBUTION WIDTH 14.9 % (11.5-14.5); WHITE BLOOD COUNT 8.6 X10'3 (4.5-11.0)
[2023-01-06 04:25] LABS: ALANINE AMINOTRANSFERASE 20 U/L (12-78); ALBUMIN 2.5 G/DL (3.4-5.0); ALBUMIN/GLOBULIN RATIO 0.7 (1.1-1.5); ALKALINE PHOSPHATASE 74 IU/L (46-116); ANION GAP 8 (8-16); ASPARTATE AMINO TRANSFERASE 29 U/L (10-37); BILIRUBIN,TOTAL 0.4 MG/DL (0.1-1.0); BLOOD UREA NITROGEN 14 MG/DL (7-18); BUN/CREATININE RATIO 10.7 (10.0-20.0); CALCIUM 8.2 MG/DL (8.5-10.1); CHLORIDE 100 MMOL/L (99-107); CREATININE 1.31 MG/DL (0.60-1.10); GLUCOSE 105 MG/DL (70-104); MAGNESIUM 1.8 MG/DL (1.5-2.4); PHOSPHORUS 3.8 MG/DL (2.3-4.5); SODIUM 134 MMOL/L (135-145); TOTAL PROTEIN 6.2 G/DL (6.4-8.2); eCRCL 48 ML/MIN; eGFR 55 ML/MIN
--- NOTE | 2023-01-06 07:37 | NUR ---
tech took pt accucheck for RN, accucheck was 108, RN informed.
[2023-01-06] MEDS: K and/or MAG REPLACEMENT MC SCH ×2 (08:00→20:00)
--- NOTE | 2023-01-06 08:42 | NUR ---
PT CAREGIVER JACQUELINE CALLED, RN REQUESTED TECH TAKE DOWN NAME AND NUMBER FOR NURSE.
--- NOTE | 2023-01-06 08:42 | NUR ---
Patient in room ED 16. I have received report from Summer and had the opportunity to ask questions and assume patient care.
--- NOTE | 2023-01-06 08:54 | NUR ---
STUART SECURED TO RIGHT LEG WITH TEGEDERM D/T NO SECUREMENT DEVICE IN OMNICELL WITH ADHESIVE. SEN DIAMOND NOTIFIED AND WILL REPLACE ONCE PT ARRIVES TO THE FLOOR.
[2023-01-06] MEDS: normal saline 1000ml 1,000 ML IV SCH ×2 (09:51→21:30)
[2023-01-06] MEDS: buPROPion 75mg tablet PO SCH (10:00)
[2023-01-06] MEDS: levoTHYROXINE 25mcg tablet PO SCH (10:37)
[2023-01-06] MEDS: losartan 50mg tablet PO SCH (10:38)
[2023-01-06] MEDS: atorvastatin 20mg tablet PO SCH (10:38)
[2023-01-06] MEDS: docusate sod 100mg capsule PO SCH ×2 (10:38→20:07)
[2023-01-06] MEDS: aspirin 81mg, enteric-coated 1 TAB TABLET.DR PO SCH (10:38)
[2023-01-06] MEDS: enoxaparin 40mg/0.4ml syringe SUBCUT SCH (10:48)
[2023-01-06] MEDS: gabapentin 300mg capsule PO SCH ×2 (10:49→20:07)
[2023-01-06] MEDS: albuterol 2.5 MG/3 ML nebule NEB PRN (17:10)
[2023-01-06] MEDS: QUETIAPINE 50 MG TAB.SR.24H PO SCH (20:07)
[2023-01-06] MEDS: divalproex sod 250mg ER (24-hour) tablet PO SCH (20:08)
[2023-01-06] MEDS: quetiapine fumarate ER 300mg tablet PO SCH (20:08)
[2023-01-06] MEDS: insulin glargine (Lantus) pen - multi-dose SQ SCH (20:25)
[2023-01-07 06:00] VITALS: BP 128/75; PULSE 95; RESP 17; TEMP 98; O2SAT 96
--- NOTE | 2023-01-07 06:02 | NUR ---
Problems reprioritized. Patient report given, questions answered & plan of care reviewed with Kala FOY.
[2023-01-07 06:32] LABS: BASOPHILS % (AUTO) 0.4 % (0-1); EOSINOPHILS # (AUTO) 0.2 X10'3 (0-0.9); EOSINOPHILS % (AUTO) 2.2 % (0-6); HEMATOCRIT 28.9 % (42.0-52.0); MEAN CORPUSCULAR HEMOGLOBIN 29.9 PG (27.0-31.0); MEAN CORPUSCULAR HGB CONC 34.5 g/dL (33.0-36.5); MEAN CORPUSCULAR VOLUME 86.8 FL (78-98); MEAN PLATELET VOLUME 7.9 FL (7.4-10.4); MONOCYTES # (AUTO) 0.8 X10'3 (0-0.9); MONOCYTES % (AUTO) 9.5 % (2-12); NEUTROPHILS # (AUTO) 5.9 X10'3 (1.8-7.7); NEUTROPHILS % (AUTO) 65.9 % (42-75); PLATELET COUNT 169 X10'3 (140-440); RED BLOOD COUNT 3.33 X10'6 (4.70-6.10); WHITE BLOOD COUNT 8.9 X10'3 (4.5-11.0)
[2023-01-07 07:06] LABS: ALANINE AMINOTRANSFERASE 19 U/L (12-78); ALBUMIN 2.1 G/DL (3.4-5.0); ALBUMIN/GLOBULIN RATIO 0.6 (1.1-1.5); ALKALINE PHOSPHATASE 67 IU/L (46-116); ANION GAP 9 (8-16); ASPARTATE AMINO TRANSFERASE 24 U/L (10-37); BILIRUBIN,TOTAL 0.3 MG/DL (0.1-1.0); BLOOD UREA NITROGEN 12 MG/DL (7-18); BUN/CREATININE RATIO 9.9 (10.0-20.0); CALCIUM 8.2 MG/DL (8.5-10.1); CHLORIDE 105 MMOL/L (99-107); CREATININE 1.21 MG/DL (0.60-1.10); GLUCOSE 90 MG/DL (70-104); MAGNESIUM 1.8 MG/DL (1.5-2.4); PHOSPHORUS 3.2 MG/DL (2.3-4.5); POTASSIUM 3.9 MMOL/L (3.5-5.1); SODIUM 137 MMOL/L (135-145); TOTAL CARBON DIOXIDE 23.1 MMOL/L (24-32); TOTAL PROTEIN 5.7 G/DL (6.4-8.2); eCRCL 52 ML/MIN; eGFR 60 ML/MIN
[2023-01-07] MEDS: K and/or MAG REPLACEMENT MC SCH (07:22)
[2023-01-07] MEDS: enoxaparin 40mg/0.4ml syringe SUBCUT SCH (07:34)
[2023-01-07] MEDS: buPROPion 75mg tablet PO SCH (07:34)
[2023-01-07] MEDS: gabapentin 300mg capsule PO SCH (07:34)
[2023-01-07] MEDS: atorvastatin 20mg tablet PO SCH (07:34)
[2023-01-07] MEDS: docusate sod 100mg capsule PO SCH (07:34)
[2023-01-07] MEDS: levoTHYROXINE 25mcg tablet PO SCH (07:34)
[2023-01-07] MEDS: aspirin 81mg, enteric-coated 1 TAB TABLET.DR PO SCH (07:34)
[2023-01-07 07:35] VITALS: BP_SYST 128
[2023-01-07] MEDS: losartan 50mg tablet PO SCH (07:35)
[2023-01-07 08:00] VITALS: RESP 17; O2SAT 96
[2023-01-07] MEDS: normal saline 1000ml 1,000 ML IV SCH (09:50)
--- NOTE | 2023-01-07 11:32 | NUR ---
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 Pt hx CVA L side flaccid changed to EC7/NTL in addition to initial carb controlled diet per EMR. TUNDE d/w ASSIGNMENT AGENT who reports pt coughing w/ meds/thins and reports does softer foods/thick liquids at home. TUNDE TC w/ MD for liberalizing to regular diet as A1C 5.2% on carb restriction- MD agreeable; MD also notified of TUNDE PLUG GROWER BSS recs since hx tolerating solids/thin liquids prior admit last month per EMR. Pt has no weakness outside of L side stroke hx, no edema/wounds, and current wt not scaled 60kg prior bed scaled wt 65kg 12/07 no other scaled wt hx. Hx good solid meals accpetance prior 12/07 admit per EMR. Pt PO ~38% initial 3 carb control meals though improved to 100% WS last night w/ N/V resolved per EMR. Per ASSIGNMENT AGENT, pt small stature w/ low activity at baseline given stroke hx. At this time pt lacks minimum two malnutrition criteria. Noted constipation documented w/ large volume colonic stool per 01/05 CT note; confirmed LBM 01/04 per ASSIGNMENT AGENT w/ bowel sounds receiving routine colace BID. Will monitor for further malnutrition criteria and nutrition intervention needs this admit. Rec: 1. continue regular/EC7/NTL diet; modifications per PLUG GROWER recs Addendum: 01/07/23 at [address] Amended: Links added. 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 Pt reports 2-13 pounds wt loss w/ decreased intake ICE DELIVERY DRIVER per RN Malnutrition Screen. Pt hx CVA L side flaccid changed to EC7/NTL in addition to initial carb controlled diet per EMR. RD d/w ASSIGNMENT AGENT who reports pt coughing w/ meds/thins and reports does softer foods/thick liquids at home. TUNDE TC w/ MD for liberalizing to regular diet as A1C 5.2% on carb restriction- MD agreeable; MD also notified of RD PLUG GROWER BSS recs since hx tolerating solids/thin liquids prior admit last month per EMR. Pt has no weakness outside of L side stroke hx, no edema/wounds, and current wt not scaled 60kg prior bed scaled wt 65kg 12/07 no other scaled wt hx. Hx good solid meals accpetance prior 12/07 admit per EMR. Pt PO ~38% initial 3 carb control meals though improved to 100% WS last night w/ N/V resolved per EMR. Per ASSIGNMENT AGENT, pt small stature w/ low activity at baseline given stroke hx. At this time pt lacks minimum two malnutrition criteria. Noted constipation documented w/ large volume colonic stool per 01/05 CT note; confirmed LBM 01/04 per ASSIGNMENT AGENT w/ bowel sounds receiving routine colace BID. Will monitor for further malnutrition criteria and nutrition intervention needs this admit. Rec: 1. continue regular/EC7/NTL diet; modifications per PLUG GROWER recs
[2023-01-07 11:39] VITALS: PULSE 81; RESP 16; O2SAT 94
--- NOTE | 2023-01-07 11:53 | NUR ---
APPARATUS REPAIR MECHANIC documentation: I have reviewed all interventions, assessments performed and documented by Kala FOY .
--- NOTE | 2023-01-07 13:52 | NUR ---
Patient discharged home with caregiver via pov, personal belongings sent with. PIV d/c'd, Tip intact. Alert and appropriate at the time of discharge.
== END 2023-01-07 13:40 | disposition home health service (06) | DRG 392 ==
LOC: ER 11:51 → ED HOLD 17:02 → UNDOADMIN 17:02 → ED HOLD 17:32 → EDBEDREQ 01-06 05:20 → ED HOLD 01-06 08:55 → ORTHO 4S 01-06 08:55
PROVIDERS: ADMIT Internal Medicine; ATTEND Internal Medicine
DX: A08.4 Viral intestinal infection, unspecified (principal); E87.1 Hypo-osmolality and hyponatremia; F31.9 Bipolar disorder, unspecified; F20.9 Schizophrenia, unspecified; E03.9 Hypothyroidism, unspecified; E78.00 Pure hypercholesterolemia, unspecified; I25.10 Atherosclerotic heart disease of native coronary artery without angina pectoris; I12.9 Hypertensive chronic kidney disease with stage 1 through stage 4 chronic kidney disease, or unspecified chronic kidney disease; E11.22 Type 2 diabetes mellitus with diabetic chronic kidney disease; N18.30 Chronic kidney disease, stage 3 unspecified; Z88.1 Allergy status to other antibiotic agents; Z88.8 Allergy status to other drugs, medicaments and biological substances; Z79.899 Other long term (current) drug therapy; Z79.82 Long term (current) use of aspirin; Z56.0 Unemployment, unspecified; Z87.891 Personal history of nicotine dependence; Z95.1 Presence of aortocoronary bypass graft
CPT/HCPCS: 36415; 71045; 74176; 76700; 80053; 80305; 80320; 81001; 82150; 82948; 83036; 83605; 83615; 83690; 83735; 84100; 84145; 84484; 85025; 85610; 85730; 87040; 87081; 87088; 93005; 94640; 94760; 99285; A6258; G0378; J1650; J1815; J7030

== ENCOUNTER 2023-02-12 12:21 | Inpatient (IN) | payer MEDICARE, MEDICAID ==
[~2023-02-12] VITALS: Ht 170.2 cm; Wt 56.8 kg
[~2023-02-12 12:21] MED LIST changes: -METR-159 PO; -OMEP20TA43 PO
[2023-02-12 13:02] LABS: BILIRUBIN,URINE NEGATIVE (Neg); CLARITY,URINE CLOUDY (Clear); COLOR,URINE YELLOW (Yellow); GLUCOSE, URINE NEGATIVE (Neg); KETONES,URINE NEGATIVE (Neg); LEUKOCYTE ESTERASE ,URINE SMALL (Neg); NITRITES, URINE POSITIVE (Neg); OCCULT BLOOD,URINE NEGATIVE (Neg); PROTEIN,URINE 100 mg/dl (Neg); UROBILINOGEN,URINE 0.2 E.U/dL (0.2-1.0)
[2023-02-12 13:09] LABS: UA COLLECTION TYPE FOLEY CATH
[2023-02-12 13:10] LABS: BACTERIA,URINE 4+ /HPF (Neg); SQUAMOUS EPITHELIAL CELL,UR FEW /LPF (FEW)
[2023-02-12 13:11] LABS: WBC CLUMPS,URINE MODERATE /HPF (NEGATIVE)
[2023-02-12 13:26] LABS: BASOPHILS % (AUTO) 0.6 % (0-1); EOSINOPHILS # (AUTO) 0.4 X10'3 (0-0.9); EOSINOPHILS % (AUTO) 5.3 % (0-6); HEMATOCRIT 41.1 % (42.0-52.0); HEMOGLOBIN 13.6 g/dl (14.0-17.9); LYMPHOCYTES # (AUTO) 1.4 X10'3 (1.1-4.8); LYMPHOCYTES % (AUTO) 19.1 % (21-51); MEAN CORPUSCULAR HEMOGLOBIN 29.3 PG (27.0-31.0); MEAN CORPUSCULAR VOLUME 88.9 FL (78-98); MEAN PLATELET VOLUME 7.5 FL (7.4-10.4); MONOCYTES # (AUTO) 0.7 X10'3 (0-0.9); MONOCYTES % (AUTO) 9.2 % (2-12); NEUTROPHILS # (AUTO) 4.8 X10'3 (1.8-7.7); NEUTROPHILS % (AUTO) 65.8 % (42-75); PLATELET COUNT 297 X10'3 (140-440); RED BLOOD COUNT 4.62 X10'6 (4.70-6.10); RED CELL DISTRIBUTION WIDTH 15.2 % (11.5-14.5); WHITE BLOOD COUNT 7.4 X10'3 (4.5-11.0)
[2023-02-12 13:41] LABS: ALANINE AMINOTRANSFERASE 27 U/L (12-78); ALBUMIN 3.1 G/DL (3.4-5.0); ALBUMIN/GLOBULIN RATIO 0.6 (1.1-1.5); ALKALINE PHOSPHATASE 107 IU/L (46-116); ANION GAP 10 (8-16); ASPARTATE AMINO TRANSFERASE 20 U/L (10-37); BILIRUBIN,TOTAL 0.3 MG/DL (0.1-1.0); BLOOD UREA NITROGEN 22 MG/DL (7-18); BUN/CREATININE RATIO 12.9 (10.0-20.0); CALCIUM 9.2 MG/DL (8.5-10.1); CHLORIDE 101 MMOL/L (99-107); CREATININE 1.71 MG/DL (0.60-1.10); GLUCOSE 109 MG/DL (70-104); POTASSIUM 4.1 MMOL/L (3.5-5.1); SODIUM 137 MMOL/L (135-145); TOTAL CARBON DIOXIDE 25.6 MMOL/L (24-32); TOTAL PROTEIN 8.4 G/DL (6.4-8.2); eCRCL 35 ML/MIN; eGFR 41 ML/MIN
[2023-02-12 13:44] LABS: LIPASE 42 U/L (16-77)
--- NOTE | 2023-02-12 14:46 | NUR ---
pt arrived to rm 15 and placed on monitor
[2023-02-12] MEDS ORDERED: normal saline 1000ml 1,000 ML IV ONE (16:15)
[2023-02-12] MEDS ORDERED: ondansetron 4mg rapidly disintigrating tab PO ONE (16:15)
--- NOTE | 2023-02-12 16:39 | NUR ---
PER DR KANG RN MAY ORD CLD
[2023-02-12] MEDS: normal saline 1000ml 1,000 ML IV SCH (17:30)
[2023-02-12] MEDS ORDERED: potassium Cl 20 mEq SR tablet PO PRN ×2 (17:30)
[2023-02-12] MEDS ORDERED: acetaminophen 325mg tablet PO PRN ×2 (17:30)
[2023-02-12] MEDS ORDERED: ondansetron/PF 4mg/2ml inj IV PRN (17:30)
[2023-02-12] MEDS ORDERED: magnesium 2GM in 50ml NS 50 ML IV PRN (17:30)
[2023-02-12] MEDS ORDERED: magnesium 4gm in 100ml NS 100 ML IV PRN (17:30)
[2023-02-12] MEDS ORDERED: potassium Cl 40MEQ/1/2NS 520ml 520 ML IV PRN (17:30)
[2023-02-12] MEDS ORDERED: magnesium Cl slow-release 64mg tablet PO PRN (17:30)
--- NOTE | 2023-02-12 17:38 | NUR ---
PT HAS NONBLANCHABLE REDNESS NOTED TO SACRUM/PIC TAKEN PLACED IN CHART/WOUND CARE CONSULT ORD/DR CORBETT WAS AT BEDSIDE WHEN FOUND AND IS AWARE.
[2023-02-12] MEDS ORDERED: CefTRIAXone/D5W-Rocephin 1gm 50 ML IV ONE (19:00)
[2023-02-12] MEDS ORDERED: enoxaparin 40mg/0.4ml syringe SQ SCH (20:00)
[2023-02-12] MEDS: vancomycin 125mg/5ml ORAL solution 5ml UD oral syringe PO SCH (20:00)
--- NOTE | 2023-02-12 22:20 | NUR ---
PT HAD X1 INCONTINENT LOOSE STOOL NOTED, VERY SMALL, LOOSE WITH PARTIALLY UNDIGESTED FOOD PARTICLES, BROWN AND FOUL ODODR. STOOL SAMPLE OBTAINED AND SENT TO LAB FOR C.DIFF TESTING. KHADRA CARE AND PARTIAL BEDBATH PROVIDED W/ BED CHANGE. TURNED AND REPOSITIONED. RED BLANCHABLE WOUND NOTED APPEARS TO BE OPEN W/ NO DRAINAGE, BARRIER CREAM APPLIED. WOUND PREVIOUSLY NOTED IN CHART MD AWARE. VSS, AFEBRILE, DENIES PAIN OR DISCOMFORT. PT ABLE TO TURN AND REPOSITION SELF W/ EASE. HS MEDS ADMIN PER ORDER W/ NO TOLERATED WELL. ATE 50% OF MEAL OFFERED AND 240 ML JUICE AND WATER AT THIS TIME. WARM BLANKETS PROVIDED. PT RESTING IN BED W/ EYES CLOSED RR EVEN & NON-LABORED, NAD NOTED. LS CTAB, BS ACTIVE X4, NO C/O ABD PAIN, DENIES N/V. FC IN PLACE AND PATENT DRAINING TO GRAVITY W/ ALONDRA URINE AND NO SEDIMENT NOTED. WILL CONT TO MONITOR.
[2023-02-13] MEDS: vancomycin 125mg/5ml ORAL solution 5ml UD oral syringe PO SCH ×3 (02:56→14:00)
[2023-02-13 07:06] LABS: BASOPHILS % (AUTO) 0.7 % (0-1); EOSINOPHILS # (AUTO) 0.4 X10'3 (0-0.9); EOSINOPHILS % (AUTO) 6.6 % (0-6); HEMATOCRIT 32.4 % (42.0-52.0); LYMPHOCYTES # (AUTO) 1.5 X10'3 (1.1-4.8); LYMPHOCYTES % (AUTO) 25.4 % (21-51); MEAN CORPUSCULAR HEMOGLOBIN 29.7 PG (27.0-31.0); MEAN CORPUSCULAR VOLUME 87.4 FL (78-98); MEAN PLATELET VOLUME 7.4 FL (7.4-10.4); MONOCYTES # (AUTO) 0.7 X10'3 (0-0.9); NEUTROPHILS # (AUTO) 3.3 X10'3 (1.8-7.7); NEUTROPHILS % (AUTO) 55.3 % (42-75); PLATELET COUNT 259 X10'3 (140-440); RED BLOOD COUNT 3.71 X10'6 (4.70-6.10); RED CELL DISTRIBUTION WIDTH 14.9 % (11.5-14.5); WHITE BLOOD COUNT 5.9 X10'3 (4.5-11.0)
[2023-02-13 07:34] VITALS: BP 148/63; PULSE 57; RESP 14; TEMP 97.8; O2SAT 99
[2023-02-13 07:38] LABS: ALANINE AMINOTRANSFERASE 18 U/L (12-78); ALBUMIN 2.4 G/DL (3.4-5.0); ALBUMIN/GLOBULIN RATIO 0.6 (1.1-1.5); ALKALINE PHOSPHATASE 82 IU/L (46-116); ANION GAP 7 (8-16); ASPARTATE AMINO TRANSFERASE 16 U/L (10-37); BILIRUBIN,TOTAL 0.2 MG/DL (0.1-1.0); BLOOD UREA NITROGEN 15 MG/DL (7-18); CALCIUM 8.3 MG/DL (8.5-10.1); CHLORIDE 106 MMOL/L (99-107); CREATININE 1.36 MG/DL (0.60-1.10); GLUCOSE 77 MG/DL (70-104); POTASSIUM 3.8 MMOL/L (3.5-5.1); SODIUM 138 MMOL/L (135-145); TOTAL CARBON DIOXIDE 25.1 MMOL/L (24-32); TOTAL PROTEIN 6.4 G/DL (6.4-8.2); eCRCL 44 ML/MIN; eGFR 53 ML/MIN
[2023-02-13 08:00] VITALS: RESP 18; O2SAT 96
[2023-02-13 09:19] LABS: C DIFFICILE TOXINS A&B NEGATIVE (Neg)
[2023-02-13 09:20] LABS: C DIFF ANTIGEN NEGATIVE (NEGATIVE); C DIFF SPECIMEN=DIARRHEA? ACCEPTABLE
[2023-02-13] MEDS: normal saline 1000ml 1,000 ML IV SCH (09:59)
[2023-02-13 10:00] VITALS: BP 139/74; PULSE 86; RESP 14; TEMP 97.6; O2SAT 99
--- NOTE | 2023-02-13 11:41 | NUR ---
PRESSURE ULCER EDUCATION: DEFINITION: A pressure ulcer is an area of skin that breaks down when you stay in one position too long. The constant pressure against the skin reduces the blood flow to that area and the affected tissue dies. CAUSES: "Being bedridden or in a wheelchair "Fragile skin "Having a chronic condition, such as diabetes or vascular disease "Inability to move certain parts of your body without assistance "Older age "Incontinence of urine or stool SYMPTOMS: "A reddened area that DOES NOT turn white when pressed on - this can be the beginning of a pressure ulcer "A blister, deep sore or a crater - these can be advanced pressure ulcers FIRST AID: "Relieve the pressure on this area "Keep the area clean and dry "Call your primary doctor if you see any of the above symptoms "DO NOT massage the area "DO NOT use a donut shaped or ring shaped pillow- these actually interfere with the blood flow and cause complications PREVENTION: "Check for pressure ulcers everyday "Change position at least every two hours to relieve pressure "Use items that help relieve pressure- pillows, sheepskin, foam padding, and powders. "Keep skin clean and dry "Eat healthy well balanced meals "Exercise daily IF YOU SEE ANY OF THESE SYMPTOMS WHILE IN THE HOSPITAL - TELL YOUR NURSE IMMEDIATELY. IF YOU SEE ANY OF THESE SYMPTOMS WHILE AT HOME OR HAVE ANY QUESTIONS OR CONCERNS ABOUT PRESSURE ULCERS - CALL YOUR PRIMARY DOCTOR IMMEDIATELY. Addendum: 02/13/23 at 1142 by Morena Munoz RN Amended: Links added.
--- NOTE | 2023-02-13 14:25 | NUR ---
Pts caregiver called. He will be able to orange picker pt. by 3:30- 4 pm.
--- NOTE | 2023-02-13 14:35 | NUR ---
PAGER ID: [phone] MESSAGE: francisco sosa [phone] Pt.s stomach distended L side according to pt and he has pain there on palpation. KUB before DC? Caregiver states he has had diarrhea and incontinence often and he is worried. Valentina [phone]
--- NOTE | 2023-02-13 15:24 | NUR ---
PAGER ID: [phone] MESSAGE: Burton Serra [id number] Antibiotics for the UTI on discharge? Can I change month old f/c before pt. leaves? Valentina [phone]
--- NOTE | 2023-02-13 16:28 | NUR ---
DISCHARGE NOTE: Discharge paperwork discussed with pt. and detective homicide squad. Land Appraiser concerned about some chronic issues and UTI. Brought oup to hospitalist- no new orders, discharge to continue. Land Appraiser - son - aware to have pt. f/u with his urologist and PCP. No new medications ordered. PIV DC'd, canula intact, no complications. Pt. very eager to return home. ER did not bring W/c up this am with pt. and when RN called down there it was no where to be found. Land Appraiser upset stating this is the second time this has happened. Lost and found called. Iram Marin called. ER found w/c and returned to pt. Pt.and detective homicide squad left with remainder of belongings to discharge home.
== END 2023-02-13 16:29 | disposition home or self-care (01) | DRG 371 ==
LOC: ER 12:22 → ED HOLD 17:35 → ORTHO 4S 02-13 07:20
PROVIDERS: ADMIT Internal Medicine; ATTEND Internal Medicine
DX: A04.72 Enterocolitis due to Clostridium difficile, not specified as recurrent (principal); N17.0 Acute kidney failure with tubular necrosis; E86.0 Dehydration; E78.00 Pure hypercholesterolemia, unspecified; F20.9 Schizophrenia, unspecified; F31.9 Bipolar disorder, unspecified; I10 Essential (primary) hypertension; I25.10 Atherosclerotic heart disease of native coronary artery without angina pectoris; L89.91 Pressure ulcer of unspecified site, stage 1; Z81.8 Family history of other mental and behavioral disorders; Z87.891 Personal history of nicotine dependence; Z88.0 Allergy status to penicillin; Z95.1 Presence of aortocoronary bypass graft; Z99.3 Dependence on wheelchair
CPT/HCPCS: 36415; 80053; 81001; 82948; 83690; 84145; 85025; 87040; 87045; 87046; 87077; 87081; 87088; 87186; 87324; 87449; 96360; 99285; A5200; G0378; J0696; J1650; J7030

== ENCOUNTER 2023-07-17 11:46 | Day surgery (SDC) | payer MEDICARE, MEDICAID ==
[2023-07-13 10:51] LABS: BASOPHILS # (AUTO) 0.1 X10'3 (0-0.2); BASOPHILS % (AUTO) 1.1 % (0-1); EOSINOPHILS # (AUTO) 0.6 X10'3 (0-0.9); EOSINOPHILS % (AUTO) 8.6 % (0-6); HEMATOCRIT 35.7 % (42.0-52.0); HEMOGLOBIN 12.4 g/dl (14.0-17.9); LYMPHOCYTES % (AUTO) 28.3 % (21-51); MEAN CORPUSCULAR HEMOGLOBIN 30.9 PG (27.0-31.0); MEAN CORPUSCULAR HGB CONC 34.7 g/dL (33.0-36.5); MEAN CORPUSCULAR VOLUME 89.2 FL (78-98); MONOCYTES # (AUTO) 0.5 X10'3 (0-0.9); MONOCYTES % (AUTO) 6.4 % (2-12); NEUTROPHILS % (AUTO) 55.6 % (42-75); PLATELET COUNT 235 X10'3 (140-440); RED CELL DISTRIBUTION WIDTH 13.9 % (11.5-14.5); WHITE BLOOD COUNT 7.2 X10'3 (4.5-11.0)
[2023-07-13 11:05] LABS: APTT 40 SECONDS (22-32); PROTHROMBIN TIME 10.3 SECONDS (9.0-12.0)
[2023-07-13 11:14] LABS: ALBUMIN 2.7 G/DL (3.4-5.0); ANION GAP 10 (8-16); BLOOD UREA NITROGEN 26 MG/DL (7-18); BUN/CREATININE RATIO 15.1 (10.0-20.0); CALCIUM 8.4 MG/DL (8.5-10.1); CHLORIDE 103 MMOL/L (99-107); CHOL/HDL RATIO 3.9 (0.00-4.99); CHOLESTEROL 155 MG/DL (0-200); CREATININE 1.72 MG/DL (0.60-1.10); GLUCOSE 161 MG/DL (70-104); HDL CHOLESTEROL 40 MG/DL (35-60); LDL CHOLESTEROL 76 MG/DL (50-100); POTASSIUM 4.4 MMOL/L (3.5-5.1); SODIUM 138 MMOL/L (135-145); TOTAL CARBON DIOXIDE 24.7 MMOL/L (24-32); TRIGLYCERIDES 178 MG/DL (20-135); eGFR 40 ML/MIN
[~2023-07-17] VITALS: Ht 177.8 cm; Wt 66.5 kg
[2023-07-17] VITALS (17 sets, daily range): BP systolic 114–142; BP diastolic 57–89; PULSE 57–89; RESP 14–22; TEMP 98.2; O2SAT 95–98
[~2023-07-17 11:46] MED LIST changes: -SITA1TAB2 PO
[2023-07-17] MEDS ORDERED: heparin 1,000unit/ml 10ml vial 0 ML ONE (11:50)
[2023-07-17] MEDS ORDERED: fentaNYL/PF 50MCG/1 ML 2ML syringe ONE (11:50)
[2023-07-17] MEDS ORDERED: LIDOcaine 1% 30ml preserv. free vial ONE (11:50)
[2023-07-17] MEDS ORDERED: iohexol 350MG/ML 100ml bottle IV ONE (11:50)
[2023-07-17] MEDS ORDERED: midazolam 1 mg/ML 2ml injection ONE (11:50)
[2023-07-17] MEDS ORDERED: diphenhydrAMINE 25mg capsule PO PRN (12:05)
[2023-07-17] MEDS ORDERED: LORazepam 0.5 MG tablet PO PRN (12:05)
[2023-07-17] MEDS ORDERED: normal saline 1,000 ML IV SCH (12:05)
[2023-07-17] MEDS ORDERED: proCHLORperazine 10 MG/2 ml inj IV PRN (14:55)
[2023-07-17] MEDS ORDERED: HYDROcodone/acetaminophen 5mg/325mg tablet PO PRN (14:55)
[2023-07-17] MEDS ORDERED: OXAZEpam 15mg capsule PO PRN (14:55)
[2023-07-17] MEDS ORDERED: HYDROcodone/acetaminophen 10/325mg tab PO PRN (14:55)
[2023-07-17] MEDS ORDERED: ondansetron/PF 4mg/2ml inj IV PRN (14:55)
== END 2023-07-17 20:05 | disposition home or self-care (01) ==
LOC: SSTAY O 11:46
PROVIDERS: ATTEND Student in an Organized Health Care Education/Training Program
DX: R94.39 Abnormal result of other cardiovascular function study (principal); I25.810 Atherosclerosis of coronary artery bypass graft(s) without angina pectoris; I13.0 Hypertensive heart and chronic kidney disease with heart failure and stage 1 through stage 4 chronic kidney disease, or unspecified chronic kidney disease; E11.22 Type 2 diabetes mellitus with diabetic chronic kidney disease; N18.9 Chronic kidney disease, unspecified; I50.9 Heart failure, unspecified; E78.00 Pure hypercholesterolemia, unspecified; E03.9 Hypothyroidism, unspecified; I73.9 Peripheral vascular disease, unspecified; Z86.73 Personal history of transient ischemic attack (TIA), and cerebral infarction without residual deficits; Z79.2 Long term (current) use of antibiotics; Z79.82 Long term (current) use of aspirin; Z79.84 Long term (current) use of oral hypoglycemic drugs; Z79.890 Hormone replacement therapy; Z79.899 Other long term (current) drug therapy; Z95.1 Presence of aortocoronary bypass graft; Z88.1 Allergy status to other antibiotic agents; Z88.8 Allergy status to other drugs, medicaments and biological substances
CPT/HCPCS: 36415; 80048; 80061; 85025; 85610; 85730; 93005; 93455; 99152; 99153; J1644; J2250; J3010; J3490; J7030; Q9967; A6258; C1769

== ENCOUNTER 2023-12-20 09:21 | Emergency (ER) | payer MEDICARE, MEDICAID ==
[~2023-12-20] VITALS: Ht 167.6 cm; Wt 86.4 kg
[~2023-12-20 09:21] MED LIST changes: -CRAN500C4 PO; -D-MA500C PO; +LACT1CAP76 PO; -LEVA15HF6 PO; -QUET300T91 PO; +SITA1TAB2 PO
[2023-12-20 09:51] LABS: BASOPHILS # (AUTO) 0.1 X10'3 (0-0.2); BASOPHILS % (AUTO) 0.9 % (0-1); EOSINOPHILS # (AUTO) 0.8 X10'3 (0-0.9); HEMATOCRIT 35.2 % (42.0-52.0); HEMOGLOBIN 11.9 g/dl (14.0-17.9); LYMPHOCYTES # (AUTO) 2.4 X10'3 (1.1-4.8); LYMPHOCYTES % (AUTO) 31.5 % (21-51); MEAN CORPUSCULAR HEMOGLOBIN 31.2 PG (27.0-31.0); MEAN CORPUSCULAR HGB CONC 33.9 g/dL (33.0-36.5); MEAN PLATELET VOLUME 7.6 FL (7.4-10.4); MONOCYTES # (AUTO) 0.4 X10'3 (0-0.9); MONOCYTES % (AUTO) 5.9 % (2-12); NEUTROPHILS # (AUTO) 3.9 X10'3 (1.8-7.7); NEUTROPHILS % (AUTO) 51.7 % (42-75); PLATELET COUNT 279 X10'3 (140-440); RED BLOOD COUNT 3.83 X10'6 (4.70-6.10); RED CELL DISTRIBUTION WIDTH 13.7 % (11.5-14.5); WHITE BLOOD COUNT 7.6 X10'3 (4.5-11.0)
[2023-12-20] MEDS: normal saline 1000ML IV soln IVB ONE (09:55)
[2023-12-20 09:58] LABS: ALBUMIN 2.7 G/DL (3.4-5.0); ANION GAP 9 (8-16); BLOOD UREA NITROGEN 34 MG/DL (7-18); CALCIUM 8.8 MG/DL (8.5-10.1); CHLORIDE 104 MMOL/L (99-107); CREATININE 2.13 MG/DL (0.60-1.10); GLUCOSE 137 MG/DL (70-104); POTASSIUM 4.7 MMOL/L (3.5-5.1); SODIUM 138 MMOL/L (135-145); TOTAL CARBON DIOXIDE 25.4 MMOL/L (24-32); eCRCL 32 ML/MIN; eGFR 31 ML/MIN
[2023-12-20 10:09] LABS: BILIRUBIN,URINE NEGATIVE (Neg); CLARITY,URINE CLOUDY (Clear); COLOR,URINE YELLOW (Yellow); GLUCOSE, URINE NEGATIVE (Neg); KETONES,URINE NEGATIVE (Neg); LEUKOCYTE ESTERASE ,URINE MODERATE (Neg); NITRITES, URINE NEGATIVE (Neg); OCCULT BLOOD,URINE TRACE-INTACT (Neg); PH,URINE 6.5 (4.8-8.0); PROTEIN,URINE 100 mg/dl (Neg)
[2023-12-20 10:11] LABS: UA COLLECTION TYPE FOLEY CATH
[2023-12-20 10:21] LABS: WBC CLUMPS,URINE MANY /HPF (NEGATIVE)
[2023-12-20 10:22] LABS: BACTERIA,URINE 2+ /HPF (Neg); SQUAMOUS EPITHELIAL CELL,UR FEW /LPF (FEW); WBC,URINE TNTC /HPF (0-4)
[2023-12-20] MEDS: CefTRIAXone 2gm/D5W 50ml BAG 50 ML IV ONE (10:37)
[2023-12-20] MEDS ORDERED: CEFU250T95 PO (11:07)
[2023-12-20] MEDS ORDERED: HYDR-3965 PO (11:11)
[2023-12-20] MEDS: morphine 4 MG/ML inj SYRINge IV ONE (11:26)
[2023-12-20] MEDS: ondansetron/PF 4mg/2ml inj IV ONE (11:26)
--- NOTE | 2023-12-20 12:19 | NUR ---
ATTEMPTED TO CALL JACQUELINE, PT'S CAREGIVER, WITH NO SUCCESS.
[2023-12-20 12:34] VITALS: BP 128/70; PULSE 56; RESP 17; TEMP 97.8; O2SAT 95
--- NOTE | 2023-12-25 12:00 | NUR ---
PT'S MEDIA SALES EXECUTIVE CALLED REGARDING VISIT ON 12/20/23, UNABLE TO LEAVE [facility] [place]ICE MAILBOX WAS FULL.
--- NOTE | 2024-01-03 10:26 | NUR ---
PT WAS CALLED AND SPOKE WITH FOOD ORDER DELIVERY RUNNER. INFORMED THAT THE ABX THAT PT WAS PERSCRIBED ON 12/20/23 IS RESISTANT TO THE BACTERIA GROWN IN THE UA CULTURE AND THAT A NEW RX WOULD BE CALLED IN TO THE PHARMACY OF THEIR CHOICE. CIPRO 250MG; 1 PO BID x14 DAYS, #28 NO REFILLS WAS CALLED INTO [facility] [place] REQUESTED BY FOOD ORDER DELIVERY RUNNER
--- NOTE | 2024-01-04 10:11 | NUR ---
CAREGIVER CALLED IN AND STATES THAT [facility] NOT HAVE RECORD OF THE NEW MEDICATION (ANTIBIOTIC). AN ORDER FOR CIPRO 250 MG BID X 14 DAYS (#28) GIVEN TO THE PHARMACIST AT [facility].
== END 2023-12-20 13:00 | disposition home or self-care (01) ==
LOC: ER 09:21
DX: N39.0 Urinary tract infection, site not specified (principal); I25.10 Atherosclerotic heart disease of native coronary artery without angina pectoris; E78.00 Pure hypercholesterolemia, unspecified; I12.9 Hypertensive chronic kidney disease with stage 1 through stage 4 chronic kidney disease, or unspecified chronic kidney disease; N18.9 Chronic kidney disease, unspecified; Z88.1 Allergy status to other antibiotic agents; Z88.8 Allergy status to other drugs, medicaments and biological substances; Z79.82 Long term (current) use of aspirin; Z79.899 Other long term (current) drug therapy; Z79.2 Long term (current) use of antibiotics
CPT/HCPCS: 36415; 80048; 81001; 84145; 85025; 87077; 87088; 87186; 96361; 96365; 96375; 99284; J0696; J2270; J2405; J7030

== ENCOUNTER 2024-11-06 16:07 | Inpatient (IN) | payer MEDICARE, MEDICAID ==
[~2024-11-06] VITALS: Ht 175.3 cm; Wt 65.9 kg
[~2024-11-06 16:07] MED LIST changes: -ASPI-1397 PO; +ATOR20TA66 PO; +EZET10TA48 PO; +FAMO20TA8 PO; +LACT1CAP26 PO; -LACT1CAP76 PO; +METF-1203 PO; -QUET-28 PO; +QUET300T91 PO; -SITA1TAB2 PO
--- NOTE | 2024-11-06 16:13 | ELECTROCARDIOGRAPH REPORT ---
[facility] Test Date: 2024-11-06 Test Time: 16:11:37 Pat Name: DAYANA MARTINEZ Department: EMERGENCY ROOM Room: [place] [address] Gender: M Cranberry Bog Supervisor: : [id number] Requested By: GREGG KOVACS Order Number: [id number] Reading MD: Dr. Prem Bertrand Measurements Intervals [place] Rate: 70 P: 82 WI: 209 QRS: 55 QRSD: 170 T: 119 QT: 503 QTc: 543 Interpretive Statements Sinus rhythm Probable left atrial enlargement Left bundle branch block Electronically Signed On 11-12-2024 20:05:[address] Prem Bertrand Please click the below link to view image of tracing.
[2024-11-06 16:23] LABS: MEAN PLATELET VOLUME 7.5 FL (7.4-10.4); RED CELL DISTRIBUTION WIDTH 14.1 % (11.5-14.5)
--- NOTE | 2024-11-06 16:26 | Physician Documentation ---
History of Present Illness ~ Chief Complaint: Confused Stated Complaint: CP Time Seen by MD: 16:12 Primary Medical Doctor: requested by in ER HPI 63-year-old male presents to the ED with concerns over abnormal EKG and urinary tract symptoms along with a cough. The patient went to his primary care today for concerns over a cough and urinary tract however the EKG read as a left bundle branch block at primary care which precipitated the provider to send the patient to the ED for evaluation patient does not currently complain of any chest pain at this time he states that he has a urinary tract infection The patient does have a significant medical history including a CVA, CABG Day of Onset: Nov 06, 2024 Medication Reconciliation Allergies: Coded Allergies: amoxicillin (Verified Allergy, Intermediate, SWELLING, 04/01/24) aripiprazole (Verified Allergy, Unknown, 04/01/24) escitalopram oxalate (Unverified Allergy, Unknown, 04/01/24) STATES 3 OTHER ALLERGIES, CAN'T REMEBER NAMES OF MEDS Uncoded Allergies: LINAZOPRIL PSHYC MED (Allergy, Severe, SWELL, 05/12/11) Scheduled Atorvastatin Calcium (Atorvastatin Calcium), 1 TAB PO DAILY, (Reported) Atorvastatin Calcium (Atorvastatin Calcium), 20 MG PO DAILY Bupropion HCl (Bupropion HCl), 1 TAB PO QAM, (Reported) Divalproex ER* (Depakote ER*), 2 TAB PO HS, (Reported) Ezetimibe (Ezetimibe), 1 TAB PO DAILY, (Reported) Famotidine (Famotidine), 1 TAB PO DAILY, (Reported) Ferrous Sulfate (Ferrous Sulfate), 1 TAB PO DAILY, (Reported) Gabapentin (Neurontin), 1 TAB PO BID, (Reported) Lactobacillus Rhamnosus (Culturelle), 1 CAP PO BID Levothyroxine Sodium (Synthroid), 1 TAB PO DAILY, (Reported) Losartan Potassium (Losartan Potassium), 1 TAB PO DAILY, (Reported) Metformin HCl (Metformin HCl), 1 TAB PO BID, (Reported) Multivitamin (Multi-Vitamin Daily), 1 TAB PO DAILY, (Reported) Quetiapine Fumarate (Quetiapine Fumarate ER), 1 TAB PO HS, (Reported) Trazodone HCl (Trazodone HCl), 2 TAB PO HS, (Reported) Scheduled PRN Albuterol Sulfate (Ventolin Hfa), 2 PUFFS INH Q4H PRN for SOB or wheezing, (Reported) Past Medical History Past Medical History: Allergic Rhinitis, Coronary Artery Disease, High Cholesterol, Hypertension, Acute Kidney Injury, Chronic Kidney Disease, Thyroid (unspecified), Schizophrenia Past Surgical History: coronary bypass surgery, other Other Past Surgical History: Bilateral cataracts Patient History: FH: bipolar disorder FH: schizophrenia Alcohol Use: Other Drug Use: marijuana Lives with: Family, Other Lives In: Home, Other Occupation: unemployed, retired Physical Exam Vital Signs: Temperature: 96.2, Source: Temporal, Heart Rate: 71, Respiratory Rate: 15, BP: 122/67, Pulse Oximetry: 100, Weight: 65.910 Physical Exam General: Alert, no apparent distress. Respiratory: Lungs clear, no respiratory distress. Rhonchorous Chest: No accessory muscle use. Cardiovascular: Regular rate and rhythm, no murmurs. Extremities: Normal range of motion, no deformity. Neurologic: Oriented x4. Psychiatric: Normal mood and affect. Skin: Pale color, warm and dry. No edema, no ecchymosis. Progress Results/Orders Results/Orders Orders - SANTI MARVIN [employer] Hospitalist (11/06/24 ) Ceftriaxone 2gm/D5w 50ml Bag (Rocephin 2 (11/06/24 17:40) Cult Urine + [address] (11/06/24 17:44) Completed Orders - SANTI MARVIN [employer] SHELLER Ua W/Microscopic, Cult If Ind (11/06/24 17:20) Vital Signs 11/06/24 11/06/24 11/06/24 16:18 17:50 17:51 Temp 96.2 Pulse 71 58 Resp 15 14 B/P (MAP) 122/67 118/65 (82) Pulse Ox 100 97 O2 Flow Rate 0 Laboratory Tests Test 11/06/24 16:16 11/06/24 17:20 11/06/24 17:53 White Blood Count 7.4 Red Blood Count 3.72 L Hemoglobin 11.6 L Hematocrit 34.7 L Mean Corpuscular Volume 93.3 Mean Corpuscular Hemoglobin 31.3 H Mean Corpuscular Hemoglobin Concent 33.6 Red Cell Distribution Width 14.1 Platelet Count 226 Mean Platelet Volume 7.5 Neutrophils (%) (Auto) 54.5 Lymphocytes (%) (Auto) 26.1 Monocytes (%) (Auto) 8.9 Eosinophils (%) (Auto) 10.0 H Basophils (%) (Auto) 0.5 Neutrophils # (Auto) 4.0 Lymphocytes # (Auto) 1.9 Monocytes # (Auto) 0.7 Eosinophils # (Auto) 0.7 Basophils # (Auto) 0.0 CBC Comment Sodium Level 134 L Potassium Level 4.0 Chloride Level 102 Carbon Dioxide Level 24.7 Anion Gap 7 L Blood Urea Nitrogen 35 H Creatinine 2.26 H Estimated GFR/1.73 m2 29 BUN/Creatinine Ratio 15.5 Glucose Level 149 H Calcium Level 8.1 L Troponin I High Sensitivity 45 Pro-B-Type Natriuretic Peptide 2794 H Albumin 2.6 L Chemistry Comments Urine Specimen Description Non-specified Urine Color Yellow Urine Clarity Turbid Urine pH 6.0 Urine Specific [place] 1.020 Urine Protein >=300 H Urine Glucose (UA) Negative Urine Ketones Trace H Urine Occult Blood Moderate H Urine Nitrite Positive H Urine Bilirubin Negative Urine Urobilinogen 0.2 Urine Leukocyte Esterase Moderate H Urine RBC 10-20 Urine WBC Tntc H Urine Squamous Epithelial Cells Few Urine Bacteria 4+ Urine Culture Indicated Indicated Volume Urine Centrifuged 5 ml Urine Comment Low volume Departure Disposition: ADMITTED INPATIENT Impression: Primary Impression: Altered mental status Additional Impressions: Dementia Metabolic encephalopathy UTI (urinary tract infection) Discharge Instructions: Urinary Tract Infection, Adult Referrals: NO PRIMARY CARE PROVIDER (PCP) Education Educated: Patient Educated regarding: diagnosis Signature Scribe Signature: u Attestation: Scribed for Santi Marvin [employer] Jump[employer] by Santi Hernández NP . 11/06/24 18:09 SANTI MARVIN NP Nov 06, 2024 16:26
--- NOTE | 2024-11-06 16:46 | RADIOLOGY REPORT ---
CHEST RADIOGRAPH Indication: CP Technique: Single frontal view of the chest was obtained COMPARISON: DI CHEST,SINGLE VIEW on DOS: 09/21/24, DI CHEST,SINGLE VIEW on DOS: 08/02/23, DI CHEST,SINGL E VIEW on DOS: 01/05/23, DI CHEST,SINGLE VIEW on DOS: 12/18/22, DI CHEST,SINGLE VIEW on DOS: 12/06/22 FINDINGS: Lines and Tubes: Median sternotomy Lungs: Clear Pleura: No effusion. No pneumothorax. Cardiomediastinal contours: Unremarkable Bones: Unremarkable IMPRESSION: No acute disease.
[2024-11-06 16:49] LABS: CREATININE 2.26 MG/DL (0.60-1.10); PRO BRAIN NATRIURETIC PEPTIDE 2794 PG/ML (0-125); TOTAL CARBON DIOXIDE 24.7 MMOL/L (24-32); eCRCL 30 ML/MIN; eGFR 29 ML/MIN
[2024-11-06 17:36] LABS: LEUKOCYTE ESTERASE ,URINE MODERATE (Neg); NITRITES, URINE POSITIVE (Neg); OCCULT BLOOD,URINE MODERATE (Neg)
[2024-11-06 17:42] LABS: UA COLLECTION TYPE NON-SPECIFIED
[2024-11-06 17:44] LABS: SQUAMOUS EPITHELIAL CELL,UR FEW /LPF (FEW)
[2024-11-06] MEDS ORDERED: ondansetron/PF 4mg/2ml inj IV PRN (17:55)
[2024-11-06] MEDS ORDERED: potassium Cl 40MEQ/1/2NS 520ml 520 ML IV PRN (17:55)
[2024-11-06] MEDS ORDERED: magnesium Cl slow-release 64mg tablet PO PRN (17:55)
[2024-11-06] MEDS ORDERED: potassium Cl 20 mEq SR tablet PO PRN ×2 (17:55)
[2024-11-06] MEDS ORDERED: magnesium hydroxide 30ml (MOM) UD suspension PO PRN (17:55)
[2024-11-06] MEDS ORDERED: HYDROcodone/acetaminophen 10/325mg tab PO PRN (17:55)
[2024-11-06] MEDS ORDERED: mag hydrox/Alum hydrox/simeth 30ml oral suspension PO PRN (17:55)
[2024-11-06] MEDS ORDERED: magnesium sulf-water 4G/100mL 100 ML IV PRN (17:55)
[2024-11-06] MEDS ORDERED: magnesium sulf-water 2g/50mL 50 ML IV PRN (17:55)
--- NOTE | 2024-11-06 18:01 | HISTORY AND PHYSICAL ---
History & Physical Providers to CC ~ History of Present Illness Reason for Admit\Complaint: UTI metabolic encephalopathy History of Present Illness History of present illness patient is a pleasant 63-year-old gentleman who is pleasantly confused unable to give any significant history. Patient keeps stating that he is not sure why he is here but here he is. Patient denies any other associated symptoms. From the ER nurse practitioner's note he states patient had gone to the doctor's office for symptoms of the cough and urinary tract infection symptoms. And was noted to have a left bundle branch block on an EKG and sent over to the ER. Patient was in the ER is noted to have acute on chronic renal insufficiency urinary tract infection and being admitted for further care and workup. Allergies: Coded Allergies: amoxicillin (Verified Allergy, Intermediate, SWELLING, 04/01/24) aripiprazole (Verified Allergy, Unknown, 04/01/24) escitalopram oxalate (Unverified Allergy, Unknown, 04/01/24) STATES 3 OTHER ALLERGIES, CAN'T REMEBER NAMES OF MEDS Uncoded Allergies: LINAZOPRIL PSHYC MED (Allergy, Severe, SWELL, 05/12/11) Home Medications Home Medications Active Culturelle (Lactobacillus Rhamnosus) 10 Billion Cell Capsule 1 Cap PO BID 30 Days Atorvastatin Calcium 20 Mg Tablet 20 Mg PO DAILY 30 Days Reported Famotidine 20 Mg Tablet 1 Tab PO DAILY Metformin HCl 500 Mg Tablet 1 Tab PO BID Ezetimibe 10 Mg Tablet 1 Tab PO DAILY Quetiapine Fumarate ER (Quetiapine Fumarate) 300 Mg Tab.er.24h 1 Tab PO HS Multi-Vitamin Daily (Multivitamin) 1 Each Tablet 1 Tab PO DAILY 30 Days Ventolin Hfa (Albuterol Sulfate) 90 Mcg Hfa.aer.ad 2 Puffs INH Q4H PRN Atorvastatin Calcium 40 Mg Tablet 1 Tab PO DAILY Ferrous Sulfate 325 Mg (65 Mg Iron) Tablet 1 Tab PO DAILY 30 Days Neurontin (Gabapentin) 300 Mg Capsule 1 Tab PO BID Bupropion HCl 75 Mg Tablet 1 Tab PO QAM Trazodone HCl 50 Mg Tablet 2 Tab PO HS 30 Days Depakote ER* (Divalproex Sodium) 500 Mg Tab.sr.24h 2 Tab PO HS Synthroid (Levothyroxine Sodium) 50 Mcg Tablet 1 Tab PO DAILY Losartan Potassium 50 Mg Tablet 1 Tab PO DAILY Past Medical History Past Medical History Allergies: Coded Allergies: amoxicillin (Verified Allergy, Intermediate, SWELLING, 04/01/24) aripiprazole (Verified Allergy, Unknown, 04/01/24) escitalopram oxalate (Unverified Allergy, Unknown, 04/01/24) STATES 3 OTHER ALLERGIES, CAN'T REMEBER NAMES OF MEDS- ? psych meds Uncoded Allergies: LINAZOPRIL PSHYC MED (Allergy, Severe, SWELL, 05/12/11) Home Medications Home Medications Active Ativan (Lorazepam) 1 Mg Tablet 1 Tab PO Q8H PRN Restora Rx Capsule (Lactobacillus Casei/Folic Acid) 60 Mg (200 Billion Cell)- 1.25 Mg Capsule 1 Cap PO DAILY 30 Days Reported Janumet 50-500 Mg Tablet (Sitagliptin Phosphate/Metformin HCl) 50 Mg-500 Mg Tablet 1 Tab PO QAM Multi-Vitamin Daily (Multivitamin) 1 Each Tablet 1 Tab PO DAILY 30 Days Ventolin Hfa (Albuterol Sulfate) 90 Mcg Hfa.aer.ad 2 Puffs INH Q4H PRN Aspirin EC (Aspirin) 81 Mg Tablet.dr 1 Tab PO DAILY Atorvastatin Calcium 40 Mg Tablet 1 Tab PO DAILY Ferrous Sulfate 325 Mg (65 Mg Iron) Tablet 1 Tab PO DAILY 30 Days Neurontin (Gabapentin) 300 Mg Capsule 1 Tab PO BID Quetiapine Fumarate ER (Quetiapine Fumarate) 200 Mg Tab.er.24h 2 Tab PO HS 200 + 300 = 500 MG Bupropion HCl 75 Mg Tablet 1 Tab PO QAM Trazodone HCl 50 Mg Tablet 2 Tab PO HS 30 Days Depakote ER* (Divalproex Sodium) 500 Mg Tab.sr.24h 2 Tab PO HS Synthroid (Levothyroxine Sodium) 50 Mcg Tablet 1 Tab PO DAILY Losartan Potassium 50 Mg Tablet 1 Tab PO DAILY Past Medical History Past Medical History CAD status post CABG Chronic kidney disease Seizures Peripheral artery disease Cerebrovascular accident Hypothyroidism Type 2 diabetes mellitus Past Surgical History Surgical History Comment CABG(he does not recall exact time) Family History Family History: FH: bipolar disorder FH: schizophrenia Past Social History Social History Comment He quit smoking at the age of 17. And he denied alcohol, drugs. Smoking: Quit greater than 1 year Alcohol Use: Other Drug Use: Marijuana Lives with: Family, Other Lives In: Home, Other Occupation: unemployed, retired ROS All Other Systems: Reviewed and Negative ROS Reviewed in full and negative except positive pertinent as in the HPI Family History Family History: FH: bipolar disorder FH: schizophrenia Exam Vitals: Vital Signs Date Time Temp Pulse Resp B/P (MAP) Pulse Ox O2 Delivery O2 Flow Rate FiO2 11/06/24 17:51 11/06/24 17:50 58 14 97 0 11/06/24 16:18 96.2 General: HEENT: Atraumatic, normocephalic, EOMI, anicteric sclera ; pink conjunctiva Neck: Trachea midline. Supple, full range of motion, no JVD Cardiac: Regular rhythm, regular rate with no murmurs all over the precordium. Respiratory: Equal breath sounds bilaterally, no tachypnea, no wheezing ,rub or rales, Chest wall is symmetric and without deformity. Gastrointestinal: Abdomen symmetric, non-distended, soft, non-tender, normal bowel sounds x4 quadrant, normoactive, no hepatosplenomegaly Musculoskeletal: Right lower extremity: No pedal edema, pulses felt Left lower extremity: No cyanosis, no pedal edema, Neurological: Mental Status: Alert, oriented to person, disoriented to time and place no neurological focal deficits noted Peripheral pulses and reflexes are plus two Diagnostic Data Last Recorded Lab Results: 11/06/24 1616 11/06/24 1616 Additional Plan Assessment and plan -- Acute metabolic encephalopathy secondary to UTI Patient pancultured in the ER Continue with IV antibiotics --CHERIE likely secondary to renal tubular stasis Monitor BUN and creatinine Patient is started on IV hydration -Hypovolemia-patient is started on IV hydration -left bundle branch block on EKG at PCPs office Negative troponins so far continue to monitor -history of CAD -Possible acute CHF Echo from 09/21/2024 Normal LV size and wall thickness. Apical anterior and inferior segments are hypokinetic. Mid and basal infero and anteroseptal segments are hypokinetic. Overall systolic function appears to be mildly reduced. Overall LVEF is 45-50%. RV is normal size with adequate function. Estimated PA systolic pressure is 14 mmHg. The left atrium size is normal. Trileaflet AV appears sclerotic without stenosis or insufficiency. Mild MV annular thickening and calcification without stenosis. Trace regurgitation. TV appears structurally normal with regurgitation. Normal pericardium. No pericardial effusion seen. -Hypoalbuminemia Mild protein calorie malnutrition Start the patient on ensures -Anemia Check micro and macro chute operator H&H Transfuse p.r.n. -hypothyroidism Check TSH Resume levothyroxine -Diabetes Start patient on hyper/hypoglycemia protocol Restart home meds when list available -Hypertension Resume home meds when list available -Hyperlipidemia Check lipid panel Restart atorvastatin -underlying psych history Try to get a better history in a.m. when patient is less confused diagnosis unclear Patient is a full code Code status: Full code PT: Ordered DVT prophylaxis: SCD In: [place] Date of Service: Nov 06, 2024 Billing Provider: SIMON PERDUE MD Common Visit Codes: [id number] INP/OBS CARE (HIGH) SIMON PERDUE MD Nov 06, 2024 18:01
[2024-11-06] MEDS: CefTRIAXone 2gm/D5W 50ml BAG 50 ML IV ONE (18:28)
[2024-11-06] MEDS: normal saline 1000ml 1,000 ML IV SCH (18:28)
[2024-11-06] MEDS: K and/or MAG REPLACEMENT MC SCH (20:00)
[2024-11-06 21:00] VITALS: BP 126/60; PULSE 49; RESP 18; TEMP 97.7; O2SAT 100
[2024-11-06] MEDS: heparin, porcine 5000 units/ml vial SQ SCH (21:41)
[2024-11-06] MEDS: docusate sod 100mg capsule PO SCH (21:42)
[2024-11-06] MEDS: HYDROcodone/acetaminophen 5mg/325mg tablet PO PRN (21:42)
[2024-11-07 04:49] LABS: MEAN PLATELET VOLUME 7.7 FL (7.4-10.4); RED CELL DISTRIBUTION WIDTH 13.8 % (11.5-14.5)
[2024-11-07 05:10] LABS: CREATININE 1.70 MG/DL (0.60-1.10); TOTAL CARBON DIOXIDE 23.5 MMOL/L (24-32); eCRCL 40 ML/MIN; eGFR 41 ML/MIN
[2024-11-07 06:00] VITALS: BP 111/64; PULSE 51; RESP 16; TEMP 97.9; O2SAT 99
[2024-11-07 08:00] VITALS: RESP 16; O2SAT 99
[2024-11-07] MEDS: CefTRIAXone/D5W-Rocephin 1gm 50 ML IV SCH (08:24)
[2024-11-07] MEDS ORDERED: NUT.TX.IMPAIRED DIGEST FXN (Ensure Clear) 237 ML PO SCH (13:00)
--- NOTE | 2024-11-07 16:32 | PROGRESS NOTE- Residence ---
Progress Note - Resident Providers to CC Resident Creating Document: NICHELLE JOHNSON RES ~ Antibiotic Timeout Antibiotic Ordered?: Yes Subjective Patient was seen and examined at bedside, patient was disoriented to time and place. Patient is currently encephalopathic, likely due to underlying infection and metabolic derangements. Not oriented and unable to provide reliable history. Staff reports improvement in alertness compared to admission. Per chart and collateral history, patient has chronic Hanson catheter in place since CVA one year ago. No reported chest pain, shortness of breath, or overt bleeding. Patient lives with a caregiver: Contact number [phone] Objective Vital Signs Date Time Temp Pulse Resp B/P (MAP) Pulse Ox O2 Delivery O2 Flow Rate FiO2 11/07/24 08:00 16 99 Room Air 11/07/24 06:00 97.9 51 111/64 (80) 11/06/24 19:23 0 Result Diagram: 11/07/24 0439 11/07/24 0439 Awake , alert, oriented to person, disoriented to time and place HEENT: Atraumatic, normocephalic, EOMI, anicteric sclera ; pink conjunctiva Neck: Trachea midline. Supple, full range of motion, no JVD Cardiac: Regular rhythm, regular rate with no murmurs all over the precordium. Respiratory: Equal breath sounds bilaterally, no tachypnea, no wheezing ,rub or rales, Chest wall is symmetric and without deformity. Gastrointestinal: Abdomen symmetric, non-distended, soft, non-tender, normal bowel sounds x4 quadrant, normoactive, no hepatosplenomegaly Musculoskeletal: Right lower extremity: No pedal edema, pulses felt Left lower extremity: No cyanosis, no pedal edema, Neurological: Mental Status: Alert, oriented to person, disoriented to time and place Cranial Nerve Assessment: Cranial examination 2-12 intact Motor Examination: Left lower extremity power: 3/5, tone: Hypotonic Right upper and lower lower extremity: Power 4/5, tone: Normal Left upper extremity: Power 0/5, hypotonic Sensory Examination: Intact Coordination and Gait: Could not be performed due significant left lower extremity weakness Reflexes: Left: 1+, right 2+ Skin: Warm and dry Advance Care Planning Advanced Care plannin - 30 Minutes Assessment Assessment 63-year-old male with past medical history CVA, 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 Plan Plan Acute Metabolic Encephalopathy likely secondary to UTI and metabolic derangement Urinary Tract Infection chronic Hanson-associated Continue IV antibiotics per sensitivities Patient pancultured in ED Monitor mental status daily Blood cultures negative for now Urine cultures: Gram-positive cocci and Gram-negative rods Empirically continuing vancomycin and Rocephin UA consistent with infection Hanson's replaced 2 weeks ago Acute Kidney Injury likely pre-renal from hypovolemia and renal tubular stasis Cr improved from 2.26 to 1.7 with IV hydration Continue IV fluids, monitor renal function and electrolytes Avoid nephrotoxic agents Hypovolemia Continue IV hydration Monitor daily weights, I/Os, orthostatic vitals Possible Acute CHF exacerbation EF 4550% with regional wall motion abnormalities CAD and status post CABG Continue to monitor for volume overload vs under-resuscitation Hold diuretics for now; reevaluate fluid status daily Cardiology to follow outpatient History of CAD with LBBB on recent EKG Continue telemetry Serial troponins negative so far Monitor for ischemic symptoms Cardiology input if new changes Anemia normocytic Monitor H/H Transfuse if Hb <7 or symptomatic Continue home medication ferrous sulfate 325 mg p.o. daily Hypoalbuminemia and Mild Protein-Calorie Malnutrition Ensure and live TID daily Nutrition consult Hyperlipidemia: Continue ezetimibe and atorvastatin 40 mg p.o. daily Hypothyroidism TSH pending Continue levothyroxine 50 mcg daily Type 2 Diabetes Mellitus Pending A1c Continue hyper/hypoglycemia protocol Resume home meds once med reconciliation complete Hypertension Continue home medications losartan 50 mg p.o. daily Hyperlipidemia Pending lipid panel Continue home medication atorvastatin 40 mg p.o. daily Psychiatric History unclear due to encephalopathy Reassess cognition daily Obtain collateral history from family Psychiatry consult outpatient if needed once patient improves Continue quetiapine 300mg p.o. HS home bupropion 75 mg p.o. q.a.m. PT/OT: Ordered DVT Prophylaxis: Heparin SQ Pain Management: [place] PRN Code Status: Full Code Disposition: Continue medical management Follow up blood cultures Nichelle Johnson MD Internal Medicine Resident, PGY-2 Date of Service: Nov 07, 2024 Billing Provider: CORINNA VAZQUEZ MD, GAURAV, RES Nov 07, 2024 16:32
[2024-11-07] MEDS: vancomycin/NS 1 GM ADD-VANTAGE 250 ML IV SCH (17:25)
[2024-11-07 18:00] VITALS: BP 106/55; PULSE 62; RESP 14; TEMP 97.6; O2SAT 97
[2024-11-07 20:00] VITALS: RESP 14; O2SAT 97
[2024-11-07] MEDS: heparin, porcine 5000 units/ml vial SQ SCH (20:31)
[2024-11-07] MEDS: divalproex sod 250mg ER (24-hour) tablet PO SCH (20:32)
[2024-11-07 22:00] VITALS: BP 104/49; PULSE 52; RESP 18; TEMP 98.6; O2SAT 99
[2024-11-08 06:04] LABS: MEAN PLATELET VOLUME 8.5 FL (7.4-10.4); RED CELL DISTRIBUTION WIDTH 13.8 % (11.5-14.5)
[2024-11-08 06:17] LABS: CREATININE 1.70 MG/DL (0.60-1.10); TOTAL CARBON DIOXIDE 21.0 MMOL/L (24-32); eCRCL 40 ML/MIN; eGFR 41 ML/MIN
[2024-11-08 07:10] VITALS: BP 102/52; PULSE 65; RESP 20; TEMP 97.5; O2SAT 96
[2024-11-08] MEDS: levoTHYROXINE 25mcg tablet PO SCH (08:18)
[2024-11-08] MEDS: buPROPion 75mg tablet PO SCH (08:20)
[2024-11-08] MEDS: multivitamins, therapeutics tablet PO SCH (08:20)
[2024-11-08 08:31] VITALS: RESP 16
[2024-11-08] MEDS: ciprofloxacin lact 400MG/200ML 200 ML IV SCH (09:33)
[2024-11-08 10:35] VITALS: BP 130/67; PULSE 63; RESP 17; TEMP 97.9; O2SAT 98
--- NOTE | 2024-11-08 14:07 | PROGRESS NOTE- Residence ---
Progress Note - Resident Providers to CC Resident Creating Document: LAILA KAMARA RES CC: CORINNA VAZQUEZ MD ~ Antibiotic Timeout Antibiotic Ordered?: Yes If Yes, Indications: uti Subjective Patient is seen this morning. He is alert and oriented. He is emotional and tearful. Stated his a couple of years ago. And he has recently become a great great grandfather and his was missing that. Stated he had CVA with left hemiparesis few years ago and since then he is wheelchair-bound Patient lives with a caregiver: Contact number [phone] Objective Vital Signs Date Time Temp Pulse Resp B/P (MAP) Pulse Ox O2 Delivery O2 Flow Rate FiO2 11/08/24 10:35 97.9 63 17 130/67 (88) 98 Room Air 11/08/24 08:31 0.0 Result Diagram: 11/08/2444711/08/24447 Awake , alert, oriented to person, disoriented to time and place HEENT: Atraumatic, normocephalic, EOMI, anicteric sclera ; pink conjunctiva Neck: Trachea midline. Supple, full range of motion, no JVD Cardiac: Regular rhythm, regular rate with no murmurs all over the precordium. Respiratory: Equal breath sounds bilaterally, no tachypnea, no wheezing ,rub or rales, Chest wall is symmetric and without deformity. Gastrointestinal: Abdomen symmetric, non-distended, soft, non-tender, normal bowel sounds x4 quadrant, normoactive, no hepatosplenomegaly Musculoskeletal: Right lower extremity: No pedal edema, pulses felt Left lower extremity: No cyanosis, no pedal edema, Neurological: Mental Status: Alert, oriented to person, disoriented to time and place Cranial Nerve Assessment: Cranial examination 2-12 intact Motor Examination: Left lower extremity power: 3/5, tone: spasticity Right upper and lower lower extremity: Power 4/5, tone: Normal Left upper extremity: Power 0/5, hypertonic, flexed and internally rotated and adducted with flexuion deformity Sensory Examination: Intact Skin: Warm and dry Assessment Assessment 63-year-old male with past medical history CVA, 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 Plan Plan Acute Metabolic Encephalopathy likely secondary to UTI and metabolic derangement Urinary Tract Infection chronic Hanson-associated Urine cultures positive for Pseudomonas and Enterococcus faecalis DC surinder and Laura Started on IV ciprofloxacin 400 mg q.12 DC the old Hanson and put a new Hanson today Follow up on blood cultures Acute Kidney Injury on CKD likely pre-renal from hypovolemia and renal tubular stasis Cr improved from 2.26 to 1.7 with IV hydration Creatinine back to baseline of 1.7 Continue IV fluids, monitor renal function and electrolytes Avoid nephrotoxic agents Hypovolemia Continue NS at 100 cc per hour Monitor daily weights, I/Os, orthostatic vitals Possible Acute CHF exacerbation EF 4550% with regional wall motion abnormalities CAD and status post CABG Continue to monitor for volume overload vs under-resuscitation Hold diuretics for now; reevaluate fluid status daily Cardiology to follow outpatient History of CAD with LBBB on recent EKG Continue telemetry Serial troponins negative so far Monitor for ischemic symptoms Cardiology input if new changes Anemia normocytic Monitor H/H Transfuse if Hb <7 or symptomatic Continue home medication ferrous sulfate 325 mg p.o. daily Iron panel done a month ago showed low iron, low TIBC, low transferrin saturation and normal ferritin- likely anemia of chronic disease Hypoalbuminemia and Mild Protein-Calorie Malnutrition Ensure and live TID daily Nutrition consult Hyperlipidemia: Continue ezetimibe and atorvastatin 40 mg p.o. daily Hypothyroidism TSH 2.32 Continue levothyroxine 50 mcg daily Type 2 Diabetes Mellitus A1c of 5.8 Continue hyper/hypoglycemia protocol home metformin on hold Hypertension Continue home medications losartan 50 mg p.o. daily Losartan on hold today in view of soft blood pressure Hyperlipidemia Continue home medication atorvastatin 40 mg p.o. daily Psychiatric History unclear due to encephalopathy Reassess cognition daily Obtain collateral history from family Psychiatry consult outpatient if needed once patient improves Continue home bupropion 75 mg p.o. q.a.m. Quetiapine on hold since patient was started on ciprofloxacin and the interaction of quetiapine and ciprofloxacin can cause prolonged QT interval. 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
[2024-11-08 18:00] VITALS: BP 121/62; PULSE 80; RESP 13; TEMP 97.6; O2SAT 96
[2024-11-08 20:00] VITALS: RESP 13; O2SAT 96
[2024-11-08 22:00] VITALS: BP 113/74; PULSE 74; RESP 18; TEMP 98.4; O2SAT 96
[2024-11-09] VITALS (8 sets, daily range): BP systolic 121–137; BP diastolic 61–71; PULSE 48–86; RESP 16–20; TEMP 97.8–98.5; O2SAT 95–97
[2024-11-09 05:56] LABS: MEAN PLATELET VOLUME 8.1 FL (7.4-10.4); RED CELL DISTRIBUTION WIDTH 14.0 % (11.5-14.5)
[2024-11-09 06:33] LABS: CREATININE 1.48 MG/DL (0.60-1.10); TOTAL CARBON DIOXIDE 22.3 MMOL/L (24-32); eCRCL 46 ML/MIN; eGFR 48 ML/MIN
[2024-11-09] MEDS: ipratropium/albuterol 3ml nebule NEB PRN (15:24)
--- NOTE | 2024-11-09 16:59 | PROGRESS NOTE- Residence ---
Progress Note - Resident Providers to CC Resident Creating Document: NICHELLE JOHNSON RES ~ Antibiotic Timeout Antibiotic Ordered?: Yes Subjective Patient is seen this morning. Patient is alert and oriented. He has symptomatically improved, possible discharge tomorrow no acute overnight symptoms. Objective Vital Signs Date Time Temp Pulse Resp B/P (MAP) Pulse Ox O2 Delivery O2 Flow Rate FiO2 11/09/24 15:32 54 18 Room Air 0.0 11/09/24 15:26 96 21 11/09/24 10:11 97.8 137/71 (93) Result Diagram: 11/09/24 0513 11/09/24 0513 Awake , alert, oriented to person, disoriented to time and place HEENT: Atraumatic, normocephalic, EOMI, anicteric sclera ; pink conjunctiva Neck: Trachea midline. Supple, full range of motion, no JVD Cardiac: Regular rhythm, regular rate with no murmurs all over the precordium. Respiratory: Equal breath sounds bilaterally, no tachypnea, no wheezing ,rub or rales, Chest wall is symmetric and without deformity. Gastrointestinal: Abdomen symmetric, non-distended, soft, non-tender, normal bowel sounds x4 quadrant, normoactive, no hepatosplenomegaly Musculoskeletal: Right lower extremity: No pedal edema, pulses felt Left lower extremity: No cyanosis, no pedal edema, Neurological: Mental Status: Alert, oriented to person, disoriented to time and place Cranial Nerve Assessment: Cranial examination 2-12 intact Motor Examination: Left lower extremity power: 3/5, tone: Hypotonic Right upper and lower lower extremity: Power 4/5, tone: Normal Left upper extremity: Power 0/5, hypotonic Sensory Examination: Intact Coordination and Gait: Could not be performed due significant left lower extremity weakness Reflexes: Left: 1+, right 2+ Skin: Warm and dry Advance Care Planning Advanced Care plannin - 30 Minutes Assessment Assessment 63-year-old male with past medical history CVA, 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 Plan Plan Acute Metabolic Encephalopathy likely secondary to UTI and metabolic derangement Urinary Tract Infection chronic Hanson-associated Urine cultures positive for Pseudomonas and Enterococcus faecalis DC vanco and Zosyn Started on IV ciprofloxacin 400 mg q.12 Hanson's replaced yesterday Blood cultures negative until today Acute Kidney Injury on CKD likely pre-renal from hypovolemia and renal tubular stasis Cr improved from 2.26 to 1.48 with IV hydration Creatinine back to baseline of 1.7 Continue IV fluids, monitor renal function and electrolytes Avoid nephrotoxic agents Hypovolemia Continue NS at 100 cc per hour Monitor daily weights, I/Os, orthostatic vitals Possible Acute CHF exacerbation EF 4550% with regional wall motion abnormalities CAD and status post CABG Continue to monitor for volume overload vs under-resuscitation Hold diuretics for now; reevaluate fluid status daily Cardiology to follow outpatient History of CAD with LBBB on recent EKG Continue telemetry Serial troponins negative so far Monitor for ischemic symptoms Cardiology input if new changes Anemia normocytic Monitor H/H Transfuse if Hb <7 or symptomatic Continue home medication ferrous sulfate 325 mg p.o. daily Iron panel done a month ago showed low iron, low TIBC, low transferrin saturation and normal ferritin- likely anemia of chronic disease Hypoalbuminemia and Mild Protein-Calorie Malnutrition Ensure en live TID daily Nutrition consult Hyperlipidemia: Continue ezetimibe and atorvastatin 40 mg p.o. daily Hypothyroidism TSH 2.32 Continue levothyroxine 50 mcg daily Type 2 Diabetes Mellitus A1c of 5.8 Continue hyper/hypoglycemia protocol home metformin on hold Hypertension Continue home medications losartan 50 mg p.o. daily Losartan on hold today in view of soft blood pressure Hyperlipidemia Continue home medication atorvastatin 40 mg p.o. daily Psychiatric History unclear due to encephalopathy Reassess cognition daily Obtain collateral history from family Psychiatry consult outpatient if needed once patient improves Continue home bupropion 75 mg p.o. q.a.m. Quetiapine on hold since patient was started on ciprofloxacin and the interaction of quetiapine and ciprofloxacin can cause prolonged QT interval. 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
[2024-11-10 05:49] LABS: RED CELL DISTRIBUTION WIDTH 13.8 % (11.5-14.5)
[2024-11-10 05:50] LABS: MEAN PLATELET VOLUME 7.9 FL (7.4-10.4)
[2024-11-10 05:52] LABS: CREATININE 1.58 MG/DL (0.60-1.10); TOTAL CARBON DIOXIDE 22.8 MMOL/L (24-32); eCRCL 43 ML/MIN; eGFR 44 ML/MIN
[2024-11-10 06:20] VITALS: BP 132/93; PULSE 59; RESP 16; TEMP 97.8; O2SAT 98
[2024-11-10] MEDS ORDERED: CIPR-202 PO (07:35)
[2024-11-10] MEDS ORDERED: LACT1CAP26 PO (07:35)
[2024-11-10 11:00] VITALS: BP 140/75; PULSE 55; RESP 16; TEMP 98.2; O2SAT 96
--- NOTE | 2024-11-10 16:03 | DISCHARGE SUMMARY-Residence ---
Discharge Summary Providers to CC Resident Creating Document: NICKNICHELLE, RES ~ Discharge Summary Admission Diagnosis: METABOLIC ENCEPHALOPATHY, UTI Hospital Course DATE OF ADMISSION: 11/06/2024 DATE OF DISCHARGE: 11/10/2024 Discharge Diagnosis\Comment: Acute Metabolic Encephalopathy likely secondary to UTI and metabolic derangement Urinary Tract Infection chronic Hanson-associated Acute Kidney Injury on CKD likely pre-renal from hypovolemia and renal tubular stasis Hypovolemia Possible Acute CHF exacerbation EF 4550% with regional wall motion abnormalities CAD and status post CABG History of CAD with LBBB on recent EKG Anemia normocytic Hypoalbuminemia and Mild Protein-Calorie Malnutrition Hyperlipidemia: Hypothyroidism Type 2 Diabetes Mellitus A1c of 5.8 Hypertension Hyperlipidemia Psychiatric History unclear due to encephalopathy Operations\Procedures: None Consultants: None Complications: None Condition on DC: Stable New Medications: Ciprofloxacin HCl (Ciprofloxacin HCl) 500 Mg Tab 1 TAB PO BID for 7 Days, #14 TAB Lactobacillus Rhamnosus (Culturelle) 10 Billion Cell Capsule 1 CAP PO DAILY for 30 Days, #30 CAP 0 Refills Continued Medications: Albuterol Sulfate (Ventolin Hfa) 90 Mcg Hfa.aer.ad 2 PUFFS INH Q4H PRN for SOB or wheezing Atorvastatin Calcium (Atorvastatin Calcium) 40 Mg Tablet 1 TAB PO DAILY Atorvastatin Calcium (Atorvastatin Calcium) 20 Mg Tablet 20 MG PO DAILY for 30 Days, #30 TAB Bupropion HCl (Bupropion HCl) 75 Mg Tablet 1 TAB PO QAM Divalproex ER* (Depakote ER*) 500 Mg Tab.sr.24h 2 TAB PO HS Ezetimibe (Ezetimibe) 10 Mg Tablet 1 TAB PO DAILY Famotidine (Famotidine) 20 Mg Tablet 1 TAB PO DAILY Ferrous Sulfate (Ferrous Sulfate) 325 Mg (65 Mg Iron) Tablet 1 TAB PO DAILY for 30 Days, #30 TAB Gabapentin (Neurontin) 300 Mg Capsule 1 TAB PO BID Lactobacillus Rhamnosus (Culturelle) 10 Billion Cell Capsule 1 CAP PO BID for 30 Days, #60 CAP 0 Refills Levothyroxine Sodium (Synthroid) 50 Mcg Tablet 1 TAB PO DAILY Losartan Potassium (Losartan Potassium) 50 Mg Tablet 1 TAB PO DAILY Metformin HCl (Metformin HCl) 500 Mg Tablet 1 TAB PO BID Multivitamin (Multi-Vitamin Daily) 1 Each Tablet 1 TAB PO DAILY for 30 Days, #30 TAB 0 Refills Quetiapine Fumarate (Quetiapine Fumarate ER) 300 Mg Tab.er.24h 1 TAB PO HS Trazodone HCl (Trazodone HCl) 50 Mg Tablet 2 TAB PO HS for 30 Days, #30 TAB Discharge Summary: Hospital Course: The patient is a 63-year-old male with a history of cerebrovascular accident and chronic Hanson catheter use who was admitted with altered mental status due to acute metabolic encephalopathy, likely secondary to a urinary tract infection and underlying metabolic derangements. Urinalysis and cultures revealed Pseudomonas and Enterococcus faecalis, prompting de-escalation of antibiotics from vancomycin and piperacillin-tazobactam to IV ciprofloxacin 400 mg q12h. His Hanson catheter was replaced on hospital day 1. Blood cultures remained negative throughout hospitalization. The patients mental status has gradually improved over the course of admission; he is now alert and oriented to person, though still disoriented to time and place. The patient was also found to have an acute kidney injury on chronic kidney disease, likely due to pre-renal hypovolemia, with creatinine improving from 2.26 to 1.48 with IV hydration and trending toward his baseline of 1.7. He was managed with normal saline infusion at 100 cc/hour and careful monitoring of fluid status and electrolytes. Although there was concern for volume overload versus under-resuscitation given his known history of coronary artery disease with reduced EF (4550%) and prior CABG, diuretics were held, and fluid status was monitored daily. No clinical signs of CHF exacerbation developed. Cardiology follow-up is planned as an outpatient. Anemia was evaluated as likely normocytic and chronic, consistent with anemia of chronic disease. Hemoglobin remained stable, and transfusion was not required. He was continued on home iron supplementation. Mild hypoalbuminemia and signs of protein-calorie malnutrition were addressed with oral nutritional supplementation and a nutrition consult. His chronic medical conditions, including type 2 diabetes mellitus (A1c 5.8), hypertension, hyperlipidemia, and hypothyroidism, were reviewed and continued with appropriate adjustmentslosartan was held due to soft blood pressures, and metformin was held during the acute illness. Neurologically, the patient has residual left upper and lower extremity weakness from prior stroke. Mental status improved over hospitalization, but he remains partially oriented. Due to encephalopathy and unclear psychiatric history, collateral information is being sought, and outpatient psychiatric follow-up is recommended. Quetiapine was held due to QT-prolongation risk in the setting of ciprofloxacin, and will be resumed post-antibiotic course. Physical and occ upational therapy were consulted to assess and assist with safe discharge planning. Throughout admission, the patient remained hemodynamically stable, afebrile, and without acute cardiopulmonary events. Pain was managed conservatively with PRN [place]. 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 Physical examination today: Awake , alert, oriented to person, disoriented to time and place HEENT: Atraumatic, normocephalic, EOMI, anicteric sclera ; pink conjunctiva Neck: Trachea midline. Supple, full range of motion, no JVD Cardiac: Regular rhythm, regular rate with no murmurs all over the precordium. Respiratory: Equal breath sounds bilaterally, no tachypnea, no wheezing ,rub or rales, Chest wall is symmetric and without deformity. Gastrointestinal: Abdomen symmetric, non-distended, soft, non-tender, normal bowel sounds x4 quadrant, normoactive, no hepatosplenomegaly Musculoskeletal: Right lower extremity: No pedal edema, pulses felt Left lower extremity: No cyanosis, no pedal edema, Neurological: Mental Status: Alert, oriented to person, disoriented to time and place Cranial Nerve Assessment: Cranial examination 2-12 intact Motor Examination: Left lower extremity power: 3/5, tone: spasticity Right upper and lower lower extremity: Power 4/5, tone: Normal Left upper extremity: Power 0/5, hypertonic, flexed and internally rotated and adducted with flexuion deformity Sensory Examination: Intact Skin: Warm and dry Laboratory Tests Test 11/09/24 05:13 11/10/24 04:21 White Blood Count 7.2 X10'3 6.6 X10'3 Red Blood Count 3.05 X10'6 2.63 X10'6 Hemoglobin 9.5 g/dl 8.3 g/dl Hematocrit 28.6 % 24.6 % Mean Corpuscular Volume 93.9 FL 93.5 FL Mean Corpuscular Hemoglobin 31.2 PG 31.7 PG Mean Corpuscular Hemoglobin Concent 33.2 g/dL 33.9 g/dL Red Cell Distribution Width 14.0 % 13.8 % Platelet Count 179 X10'3 155 X10'3 Mean Platelet Volume 8.1 FL 7.9 FL Neutrophils (%) (Auto) 66.3 % 56.3 % Lymphocytes (%) (Auto) 19.9 % 28.9 % Monocytes (%) (Auto) 6.3 % 7.9 % Eosinophils (%) (Auto) 7.1 % 6.3 % Basophils (%) (Auto) 0.4 % 0.6 % Neutrophils # (Auto) 4.8 X10'3 3.7 X10'3 Lymphocytes # (Auto) 1.4 X10'3 1.9 X10'3 Monocytes # (Auto) 0.5 X10'3 0.5 X10'3 Eosinophils # (Auto) 0.5 X10'3 0.4 X10'3 Basophils # (Auto) 0.0 X10'3 0.0 X10'3 CBC Comment Sodium Level 134 MMOL/L 140 MMOL/L Potassium Level 4.6 MMOL/L 4.9 MMOL/L Chloride Level 108 MMOL/L 110 MMOL/L Carbon Dioxide Level 22.3 MMOL/L 22.8 MMOL/L Anion Gap 4 7 Blood Urea Nitrogen 18 MG/DL 17 MG/DL Creatinine 1.48 MG/DL 1.58 MG/DL Estimated GFR/1.73 m2 48 ML/MIN 44 ML/MIN BUN/Creatinine Ratio 12.2 10.8 Glucose Level 133 MG/DL 140 MG/DL Calcium Level 7.5 MG/DL 7.2 MG/DL Magnesium Level 1.9 MG/DL 1.7 MG/DL Total Bilirubin 0.2 MG/DL 0.2 MG/DL Aspartate Amino Transf (AST/SGOT) 20 U/L 17 U/L Alanine Aminotransferase (ALT/SGPT) 15 U/L 14 U/L Alkaline Phosphatase 65 IU/L 54 IU/L Total Protein 5.9 G/DL 4.8 G/DL Albumin 2.1 G/DL 1.8 G/DL Globulin 3.8 G/DL 3.0 G/DL Albumin/Globulin Ratio 0.6 0.6 Chemistry Comments Advise on discharge: - please do not take quetiapine fumarate 300 mg until you complete the course of ciprofloxacin 500 mg p.o. b.i.d. for 7 days. Start quetiapine fumarate after completing the course of this antibiotic to avoid QT prolongation. - continue antibiotics as prescribed - regular Hanson's replacement per protocol - call 911/go to the nearby ED if any emergencies - follow up with PCP in 1 week with a repeat labs *Problems/Diagnosis: (1) UTI (urinary tract infection) Status: Acute (2) Metabolic encephalopathy Status: Resolved Total Time Spent on D/C: Up to 30 Minutes Date of Service: Nov 10, 2024 Billing Provider: CORINNA VAZQUEZ MD, GAURAV, RES Nov 10, 2024 16:03
[2024-11-10] MEDS ORDERED: VANCOMYCIN LEVEL IV ONE (16:30)
== END 2024-11-10 14:25 | disposition home health service (06) | DRG 698 ==
LOC: ER 16:08 → ED HOLD 17:57 → SUR 3N 20:35
PROVIDERS: ADMIT Internal Medicine; ATTEND Internal Medicine
DX: T83.518A Infection and inflammatory reaction due to other urinary catheter, initial encounter (principal); G93.41 Metabolic encephalopathy; N17.0 Acute kidney failure with tubular necrosis; E44.1 Mild protein-calorie malnutrition; N39.0 Urinary tract infection, site not specified; N18.9 Chronic kidney disease, unspecified; E78.00 Pure hypercholesterolemia, unspecified; F20.9 Schizophrenia, unspecified; F31.9 Bipolar disorder, unspecified; E03.9 Hypothyroidism, unspecified; F03.90 Unspecified dementia, unspecified severity, without behavioral disturbance, psychotic disturbance, mood disturbance, and anxiety; I12.9 Hypertensive chronic kidney disease with stage 1 through stage 4 chronic kidney disease, or unspecified chronic kidney disease; E11.22 Type 2 diabetes mellitus with diabetic chronic kidney disease; I25.10 Atherosclerotic heart disease of native coronary artery without angina pectoris; E86.1 Hypovolemia; E11.51 Type 2 diabetes mellitus with diabetic peripheral angiopathy without gangrene; D64.9 Anemia, unspecified; E88.09 Other disorders of plasma-protein metabolism, not elsewhere classified; Y83.8 Other surgical procedures as the cause of abnormal reaction of the patient, or of later complication, without mention of misadventure at the time of the procedure; Y92.89 Other specified places as the place of occurrence of the external cause; Z95.1 Presence of aortocoronary bypass graft; Z87.891 Personal history of nicotine dependence; Z88.0 Allergy status to penicillin; Z68.21 Body mass index [BMI] 21.0-21.9, adult; Z88.8 Allergy status to other drugs, medicaments and biological substances; Z88.1 Allergy status to other antibiotic agents; I69.839 Monoplegia of upper limb following other cerebrovascular disease affecting unspecified side
CPT/HCPCS: 36415; 71045; 80048; 80053; 81001; 83735; 83880; 84145; 84443; 84484; 85025; 87040; 87077; 87081; 87088; 87186; 93005; 94640; 94760; 96361; 96365; 96372; 97162; 97530; 99285; A4314; A5200; A6258; G0378; J0696; J0744; J1644; J3373; J7030

== ENCOUNTER 2024-11-18 12:41 | Emergency (ER) | payer MEDICARE, MEDICAID ==
[~2024-11-18] VITALS: Ht 172.7 cm; Wt 80.0 kg
[~2024-11-18 12:41] MED LIST changes: +CIPR-458 PO
--- NOTE | 2024-11-18 13:11 | Physician Documentation ---
History of Present Illness ~ Chief Complaint: ALOC Stated Complaint: SEPSIS ALERT/UTI Time Seen by MD: 12:47 Primary Medical Doctor: requested by in ER Source: patient, EMS Mode of Arrival: EMS Exam Limitations: clinical condition HPI Patient who was recently discharged from this hospital on November 10. Admitted on November 06. Those notes were reviewed by me. Admitted for UTI and encephalopathy. History of CABG, chronic kidney disease, right CVA with chronic deficit, hypothyroidism and diabetes. Has been home on Cipro. When he awoke this morning EMS reports that multiple drum sander reported he seemed lethargic and altered. Currently alert to person and place but not time. That seems to have been the case in the hospital. Hanson catheter in place. Patient denies any pain. Denies any cough. EMS gave 1 L of fluids in route as his blood pressure was low and that improved to the low 100 range. Medication Reconciliation Allergies: Coded Allergies: amoxicillin (Verified Allergy, Intermediate, SWELLING, 11/18/24) aripiprazole (Verified Allergy, Unknown, 11/18/24) escitalopram oxalate (Unverified Allergy, Unknown, 11/18/24) STATES 3 OTHER ALLERGIES, CAN'T REMEBER NAMES OF MEDS Uncoded Allergies: LINAZOPRIL PSHYC MED (Allergy, Severe, SWELL, 05/12/11) Scheduled Atorvastatin Calcium (Atorvastatin Calcium), 1 TAB PO DAILY, (Reported) Atorvastatin Calcium (Atorvastatin Calcium), 20 MG PO DAILY Bupropion HCl (Bupropion HCl), 1 TAB PO QAM, (Reported) Divalproex ER* (Depakote ER*), 2 TAB PO HS, (Reported) Ezetimibe (Ezetimibe), 1 TAB PO DAILY, (Reported) Famotidine (Famotidine), 1 TAB PO DAILY, (Reported) Ferrous Sulfate (Ferrous Sulfate), 1 TAB PO DAILY, (Reported) Gabapentin (Neurontin), 1 TAB PO BID, (Reported) Lactobacillus Rhamnosus (Culturelle), 1 CAP PO BID Lactobacillus Rhamnosus (Culturelle), 1 CAP PO DAILY Levothyroxine Sodium (Synthroid), 1 TAB PO DAILY, (Reported) Losartan Potassium (Losartan Potassium), 1 TAB PO DAILY, (Reported) Metformin HCl (Metformin HCl), 1 TAB PO BID, (Reported) Multivitamin (Multi-Vitamin Daily), 1 TAB PO DAILY, (Reported) Quetiapine Fumarate (Quetiapine Fumarate ER), 1 TAB PO HS, (Reported) Trazodone HCl (Trazodone HCl), 2 TAB PO HS, (Reported) Scheduled PRN Albuterol Sulfate (Ventolin Hfa), 2 PUFFS INH Q4H PRN for SOB or wheezing, (Reported) Discontinued Medications Ciprofloxacin HCl (Ciprofloxacin HCl), 1 TAB PO BID Discontinued Reason: Auto Discontinued Past Medical History Past Medical History: Allergic Rhinitis, Coronary Artery Disease, High Cholesterol, Hypertension, Acute Kidney Injury, Chronic Kidney Disease, Thyroid (unspecified), Schizophrenia Past Surgical History: coronary bypass surgery, other Other Past Surgical History: Bilateral cataracts Patient History: FH: bipolar disorder FH: schizophrenia Alcohol Use: Other Drug Use: marijuana Lives with: Family, Other Lives In: Home, Other Occupation: unemployed, retired Review of Systems All Other Systems at this time: Reviewed and Negative Physical Exam Vital Signs: Temperature: 97.9, Source: Oral, Heart Rate: 70, Respiratory Rate: 18, BP: 101/66, Pulse Oximetry: 95, Weight: 80.000 General Appearance: alert, no apparent distress Neck: non-tender, full range of motion Head: normal Face: normal inspection Pupils/EOM/Fundus: PERRLA, EOM intact Mouth: other (Extremely dry) Respiratory: rhonchi Chest: no accessory muscle use Cardiovascular: regular rate, rhythm, no edema, no murmur Gastrointestinal: normal palpation, non-tender Orientation / Memory / CN: oriented x2 Motor / Sensory: other (Chronic left-sided weakness) Extremities: non-tender, normal range of motion (At baseline) Psych / Thought Process: coherent, appropriate affect Skin: warm/dry, pallor Progress Progress Note And then with dehydration. Gave 2 L of normal saline and he felt much better and blood pressure corrected nicely. Looks so much better. Requested to eat lunch so we got him a food tray. CBC and chemistry panel unremarkable. Troponin negative. Urinalysis unremarkable. Chest x-ray normal. Lactate elevated at 3.5 due to dehydration not sepsis or infection. Corrected nicely to 2.5 after 2 L. since patient was feeling much better and and eating and looked much better and he also wanted to go home discharged home in good condition. Counseled on making sure he drinks plenty of water. Follow up with PCP in the next week or return here if new or worsening symptoms prior to follow up. Results/Orders Results/Orders Orders - ALLAN NEAL MD Culture Blood (11/18/24 12:58) Chest,Single View (11/18/24 12:58) Monitor (11/18/24 12:58) Oxygen (11/18/24 12:58) Saline Lock (11/18/24 12:58) Straight Cath For Urine Sample (11/18/24 12:58) * (A) Hanson- Protocol * Q12H@07,19 (11/18/24 14:02) 60g Carb Controlled (11/18/24 Lunch) Completed Orders - ALLAN NEAL MD Cbc/Diff (11/18/24 12:58) Chest,Single View (11/18/24 12:58) Procalcitonin (11/18/24 12:58) BMP (11/18/24 12:58) Lacticsepsis (11/18/24 12:58) Normal Saline 1000ml (0.9% Sodium Chlori (11/18/24 13:00) Electrocardiogram (11/18/24 12:47) Ua W/Microscopic, Cult If Ind (11/18/24 14:04) Lactic,2hr (11/18/24 14:38) Medications Received in ER Medications (Trade) Dose Ordered Sig/Young Route PRN Reason Start Time Stop Time Status Last Admin Dose Admin Sodium Chloride 1,000 ml @ 1,000 mls/hr ONCE ONCE IV 11/18/24 13:00 11/18/24 13:59 DC 11/18/24 13:14 1,000 MLS/HR Vital Signs 11/18/24 11/18/24 11/18/24 11/18/24 12:43 12:52 13:58 14:30 Temp 97.9 97.9 Pulse 70 56 51 Resp 18 16 15 B/P (MAP) 101/66 114/62 (79) 115/65 (82) Pulse Ox 95 95 95 O2 Flow Rate 0 0 11/18/24 11/18/24 14:45 15:18 Temp 97.9 Pulse 51 55 Resp 15 16 B/P (MAP) 107/68 (81) 114/60 (78) Pulse Ox 95 99 O2 Flow Rate 0 0 Laboratory Tests Test 11/18/24 12:56 11/18/24 14:04 11/18/24 14:48 White Blood Count 5.6 Red Blood Count 3.09 L Hemoglobin 9.7 L Hematocrit 29.0 L Mean Corpuscular Volume 93.8 Mean Corpuscular Hemoglobin 31.4 H Mean Corpuscular Hemoglobin Concent 33.5 Red Cell Distribution Width 14.1 Platelet Count 193 Mean Platelet Volume 7.3 L Neutrophils (%) (Auto) 50.4 Lymphocytes (%) (Auto) 31.5 Monocytes (%) (Auto) 7.4 Eosinophils (%) (Auto) 10.2 H Basophils (%) (Auto) 0.5 Neutrophils # (Auto) 2.8 Lymphocytes # (Auto) 1.8 Monocytes # (Auto) 0.4 Eosinophils # (Auto) 0.6 Basophils # (Auto) 0.0 CBC Comment Sodium Level 135 Potassium Level 4.3 Chloride Level 105 Carbon Dioxide Level 18.9 L Anion Gap 11 Blood Urea Nitrogen 37 H Creatinine 2.52 H Estimated GFR/1.73 m2 26 BUN/Creatinine Ratio 14.7 Glucose Level 126 H Lactic Acid Level 3.5 H 2.5 H Calcium Level 7.4 L Albumin 2.0 L Procalcitonin < 0.05 Chemistry Comments Urine Specimen Description Hanson cath Urine Color Straw Urine Clarity Clear Urine pH 6.0 Urine Specific [place] 1.010 Urine Protein Trace Urine Glucose (UA) Negative Urine Ketones Negative Urine Occult Blood Trace-intact Urine Nitrite Negative Urine Bilirubin Negative Urine Urobilinogen 0.2 Urine Leukocyte Esterase Negative Urine RBC 3-10 Urine WBC 0-4 Urine Squamous Epithelial Cells Few Urine Transitional Epithelial Cells Moderate Urine Renal Cells Few Urine Bacteria Few Urine Culture Indicated Not ind Volume Urine Centrifuged 10 ml Urine Comment Microbiology Date/Time Source Procedure Growth Status 11/18/24 13:21 Blood Arm Right Blood Culture - Preliminary NEGATIVE (LESS THAN 24 HOURS) Resulted EKG/XRAY/CT/US/VASC/MRI EKG : EKG Rate: 69 EKG: NSR, no ST T wave changes, T wave inversion (AVL and V2), NE (215) Medical Decision Making Additional Information Differential includes but isn't limited to: Sepsis, pneumonia, viral URI, edema, urinary tract infection, dehydration, viral derangement Departure Impression: Primary Impression: Dehydration Condition: Improved Discharge Instructions: Dehydration, Adult, [id number] Additional Instructions: Make sure you are drinking plenty of water every day. Follow up with her doctor in a week. Return here if new or worsening symptoms prior to follow-up. Referrals: NO PRIMARY CARE PROVIDER (PCP) Education Educated: Patient Educated regarding: diagnosis, treatment, need for follow up Signature Scribe Signature: No scribe used Attestation: No scribe used ALLAN NEAL MD Nov 18, 2024 13:11
--- NOTE | 2024-11-18 13:11 | ELECTROCARDIOGRAPH REPORT ---
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 Prem Bertrand Measurements Intervals [place] Rate: 69 P: 74 UT: 215 QRS: 24 QRSD: 97 T: 105 QT: 441 QTc: 473 Interpretive Statements Sinus rhythm Borderline prolonged UT interval Abnrm T, consider ischemia, anterolateral lds Electronically Signed On 11-18-2024 18:34:[address] Prem Bertrand Please click the below link to view image of tracing.
[2024-11-18 13:13] LABS: MEAN PLATELET VOLUME 7.3 FL (7.4-10.4); RED CELL DISTRIBUTION WIDTH 14.1 % (11.5-14.5)
[2024-11-18] MEDS: normal saline 1000ml 1,000 ML IV ONE (13:14)
[2024-11-18 13:20] LABS: CREATININE 2.52 MG/DL (0.60-1.10); TOTAL CARBON DIOXIDE 18.9 MMOL/L (24-32); eCRCL 28 ML/MIN; eGFR 26 ML/MIN
--- NOTE | 2024-11-18 13:50 | RADIOLOGY REPORT ---
CHEST RADIOGRAPH Indication: cough, sepsis Technique: Single frontal view of the chest was obtained Comparison: DI CHEST,SINGLE VIEW on DOS: 11/06/24, DI CHEST,SINGLE VIEW on DOS: 09/21/24, DI CHEST,SINGL E VIEW on DOS: 08/02/23, DI CHEST,SINGLE VIEW on DOS: 01/05/23, DI CHEST,SINGLE VIEW on DOS: 12/18/22 FINDINGS: Lines and Tubes: None Lungs: No focal consolidation. Pleura: No effusion. No pneumothorax. Cardiomediastinal contours: Unremarkable Bones: No acute osseous abnormality. IMPRESSION: No acute cardiopulmonary disease.
[2024-11-18 14:19] LABS: LEUKOCYTE ESTERASE ,URINE NEGATIVE (Neg); NITRITES, URINE NEGATIVE (Neg); OCCULT BLOOD,URINE TRACE-INTACT (Neg)
[2024-11-18 14:24] LABS: UA COLLECTION TYPE FOLEY CATH
[2024-11-18 14:27] LABS: SQUAMOUS EPITHELIAL CELL,UR FEW /LPF (FEW)
[2024-11-18 14:31] LABS: RENAL CELLS, URINE FEW /HPF
[2024-11-18 15:18] VITALS: TEMP 97.9
[2024-11-18 16:31] VITALS: BP 135/75; PULSE 63; RESP 17; O2SAT 99
== END 2024-11-18 16:42 | disposition home or self-care (01) ==
LOC: ER 12:43
DX: E86.0 Dehydration (principal); E03.9 Hypothyroidism, unspecified; I12.9 Hypertensive chronic kidney disease with stage 1 through stage 4 chronic kidney disease, or unspecified chronic kidney disease; E11.22 Type 2 diabetes mellitus with diabetic chronic kidney disease; N18.9 Chronic kidney disease, unspecified; E78.00 Pure hypercholesterolemia, unspecified; F20.9 Schizophrenia, unspecified; F12.90 Cannabis use, unspecified, uncomplicated; I25.10 Atherosclerotic heart disease of native coronary artery without angina pectoris; Z88.0 Allergy status to penicillin; Z88.8 Allergy status to other drugs, medicaments and biological substances; Z86.73 Personal history of transient ischemic attack (TIA), and cerebral infarction without residual deficits
CPT/HCPCS: 36415; 71045; 80048; 81001; 83605; 84145; 85025; 87040; 93005; 96360; 99285; C1758; J7030

== ENCOUNTER 2024-12-09 10:43 | Inpatient (IN) | payer MEDICARE, MEDICAID ==
[~2024-12-09] VITALS: Ht 177.8 cm; Wt 60.0 kg
[~2024-12-09 10:43] MED LIST changes: -CIPR-458 PO
[2024-12-09] MEDS: CefTRIAXone 2gm/D5W 50ml BAG 50 ML IV ONE (11:00)
[2024-12-09] MEDS: ringers solution, lactated 1000ml IV soln IV ONE ×2 (11:16→21:38)
--- NOTE | 2024-12-09 11:20 | ELECTROCARDIOGRAPH REPORT ---
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
--- NOTE | 2024-12-09 11:41 | RADIOLOGY REPORT ---
EXAM: DI CHEST,SINGLE VIEW HISTORY: CP COMPARISON: DI CHEST,SINGLE VIEW on DOS: 11/18/24, DI CHEST,SINGLE VIEW on DOS: 11/06/24, DI CHEST,SING LE VIEW on DOS: 09/21/24, DI CHEST,SINGLE VIEW on DOS: 08/02/23, DI CHEST,SINGLE VIEW on DOS: 01/05/23 TECHNIQUE: Portable AP view of the chest was performed. FINDINGS: No pneumothorax, consolidative infiltrates, or pulmonary edema. The heart is not enlarged. There are postoperative changes of median sternotomy. The aortic arch is calcific. IMPRESSION: Postoperative changes of the heart without evidence of acute intrathoracic process.
--- NOTE | 2024-12-09 11:52 | Physician Documentation ---
History of Present Illness ~ Chief Complaint: Shortness of Breath Stated Complaint: SOB ABD PAIN Time Seen by MD: 11:00 Primary Medical Doctor: requested by in ER Source: patient Mode of Arrival: EMS Exam Limitations: no limitations HPI Chief Complaint: Short of breath Caveat: None Independent Historians: Paramedics History of Present Illness: Patient is a 63-year-old man lives at home and cared for by family. Patient is brought in by paramedics for shortness a breath that began 2-3 days ago. Patient developed severe abdominal pain this morning. Patient describes his pain as feeling like he is going to explode. No nausea or vomiting. Patient's pain is 10/10. Paramedics found the patient's pulse ox to be 95% on room air. Patient is denying chest pain. Review of systems: All systems were reviewed and are negative except for what is indicated in the history of present illness. Past Medical History: CVA with residual left-sided weakness Past Surgical History: CABG x1 Social History: Cared for at home by son, no tobacco use or drug use Medications: Reviewed as documented Nursing Notes Allergies: Reviewed as documented in Nursing Notes Medication Reconciliation Allergies: Coded Allergies: amoxicillin (Verified Allergy, Intermediate, SWELLING, 11/18/24) aripiprazole (Verified Allergy, Unknown, 11/18/24) escitalopram oxalate (Unverified Allergy, Unknown, 11/18/24) STATES 3 OTHER ALLERGIES, CAN'T REMEBER NAMES OF MEDS Uncoded Allergies: LINAZOPRIL PSHYC MED (Allergy, Severe, SWELL, 05/12/11) Scheduled Aspirin (Aspirin), 1 TAB PO DAILY, (Reported) Atorvastatin Calcium (Atorvastatin Calcium), 1 TAB PO DAILY, (Reported) Atorvastatin Calcium (Atorvastatin Calcium), 20 MG PO DAILY Bupropion HCl (Bupropion HCl), 1 TAB PO QAM, (Reported) Divalproex ER* (Depakote ER*), 2 TAB PO HS, (Reported) Ezetimibe (Ezetimibe), 1 TAB PO DAILY, (Reported) Famotidine (Famotidine), 1 TAB PO DAILY, (Reported) Ferrous Sulfate (Ferrous Sulfate), 1 TAB PO DAILY, (Reported) Gabapentin (Neurontin), 1 TAB PO BID, (Reported) Lactobacillus Rhamnosus (Culturelle), 1 CAP PO BID Lactobacillus Rhamnosus (Culturelle), 1 CAP PO DAILY Levothyroxine Sodium (Synthroid), 1 TAB PO DAILY, (Reported) Losartan Potassium (Losartan Potassium), 1 TAB PO DAILY, (Reported) Metformin HCl (Metformin HCl), 1 TAB PO BID, (Reported) Multivitamin (Multi-Vitamin Daily), 1 TAB PO DAILY, (Reported) Omeprazole (Omeprazole), 1 CAP PO DAILY, (Reported) Quetiapine Fumarate (Quetiapine Fumarate ER), 1 TAB PO HS, (Reported) Rivaroxaban (Xarelto), 1 TAB PO DAILY, (Reported) Trazodone HCl (Trazodone HCl), 2 TAB PO HS, (Reported) Scheduled PRN Albuterol Sulfate (Ventolin Hfa), 2 PUFFS INH Q4H PRN for SOB or wheezing, (Reported) Past Medical History Past Medical History: Allergic Rhinitis, Coronary Artery Disease, High Cholesterol, Hypertension, Acute Kidney Injury, Chronic Kidney Disease, Thyroid (unspecified), Schizophrenia Past Surgical History: coronary bypass surgery, other Other Past Surgical History: Bilateral cataracts Patient History: FH: bipolar disorder FH: schizophrenia Alcohol Use: Other Drug Use: marijuana Lives with: Family, Other Lives In: Home, Other Occupation: unemployed, retired Review of Systems All Other Systems at this time: Reviewed and Negative ROS Patient denies any other acute symptoms other than above. All other systems are negative Physical Exam Vital Signs: RN Vital Signs have been reviewed: Yes, Temperature: 97.9, Source: Oral, Heart Rate: 99, Respiratory Rate: 15, BP: 90/56, Pulse Oximetry: 100, Weight: 60.000 Oxygen Flow Rate: 2.0 Pulse Oximetry Reflects: adequate oxygenation Physical Exam General Appearance: Mild distress, chronically ill-appearing HEENT: Normal OP, moist oral mucosa, PERRL, EOMI Neck: supple, normal ROM, trachea midline Pulmonary: No respiratory distress, CTA, BS equal Cardiac: RRR, no murmur, rub or gallop, GI: nondistended, soft, nontender, normal bowel sounds, no guarding, no rebound Extremities: normal ROM, no swelling, non-tender Skin: intact, dry, warm, no rashes Neuro: AAOx3, speech is clear, no focal motor weakness Psych: normal affect, good eye contact, no apparent hallucination, normal speech Progress Results/Orders Results/Orders Orders - TRI,AZALIA R MD Chest,Single View (12/09/24 11:00) Saline Lock (12/09/24 11:00) Monitor (12/09/24 11:00) Oxygen (12/09/24 11:00) Culture Blood (12/09/24 11:00) Cta Chest Abdomen Pelvis (12/09/24 12:38) * (B) Hanson- Non Protocol * Q12H@07,19 (12/09/24 13:25) Heparin 25,000 Unit/250ml Bag (Heparin 2 (12/09/24 13:55) Heparin 10,000 Unit/Ml 1ml (Heparin 10,0 (12/09/24 13:55) Cbc/Diff (12/10/24 03:00) Cbc/Diff (12/11/24 03:00) Cbc/Diff (12/12/24 03:00) Cbc/Diff (12/13/24 03:00) Cbc/Diff (12/14/24 03:00) Echocardiogram (12/09/24 13:51) C Diff Toxin (12/09/24 14:48) Cardiac Ptt (12/09/24 20:40) Completed Orders - AZALIA BARTLETT MD Cbc/Diff (12/09/24 11:00) MG (12/09/24 11:00) Electrocardiogram (12/09/24 11:00) PBNP (12/09/24 11:00) Chest,Single View (12/09/24 11:00) Pt Inr (12/09/24 11:00) PTT (12/09/24 11:00) Hs Troponin I W Calculations (12/09/24 11:00) Hs Troponin I W Calculations (12/09/24 13:00) Hs Troponin I W Calculations (12/09/24 14:00) CMP (12/09/24 11:00) Procalcitonin (12/09/24 11:00) Ceftriaxone 2gm/D5w 50ml Bag (Rocephin 2 (12/09/24 11:00) Lacticsepsis (12/09/24 11:00) Ringers Solution, Lacted (Lactated Ringe (12/09/24 11:00) Iohexol 350mg/Ml 100ml (Omnipaque 350mg/ (12/09/24 11:14) Cta Chest Abdomen Pelvis (12/09/24 12:38) Iohexol 350mg/Ml 100ml (Omnipaque 350mg/ (12/09/24 11:34) Electrocardiogram (12/09/24 13:20) Normal Saline 1000ml (0.9% Sodium Chlori (12/09/24 13:40) Lactic,2hr (12/09/24 13:50) Heparin 10,000 Unit/Ml 1ml (Heparin 10,0 (12/09/24 14:10) Medications Received in ER Medications (Trade) Dose Ordered Sig/Young Route PRN Reason Start Time Stop Time Status Last Admin Dose Admin Ceftriaxone Sodium/Dextrose 50 ml @ 100 mls/hr ONCE ONCE IV 12/09/24 11:00 12/09/24 11:29 DC 12/09/24 11:00 100 MLS/HR (lactated ringers solution) 2,000 ml ONCE ONCE IV 12/09/24 11:00 12/09/24 11:03 DC 12/09/24 11:16 2,000 ML (0.9% sodium chloride (NS) 1000ml IV soln) 1,000 ml ONCE ONCE IVB 12/09/24 13:40 12/09/24 13:41 DC 12/09/24 13:56 1,000 ML Heparin Sodium/ Dextrose 250 ml @ 7 mls/hr [id number] PRN IV TO MAINTAIN PTT WITHIN RANGE 12/09/24 13:55 12/09/24 14:39 7 MLS/HR (heparin 10,000 unit/ml 1ml inj) 3,600 units ONCE ONCE IV 12/09/24 14:10 12/09/24 14:11 DC 12/09/24 14:37 3,600 UNITS Vital Signs 12/09/24 12/09/24 12/09/24 12/09/24 10:51 10:57 10:59 11:09 Temp 97.9 97.9 Pulse 102 99 Resp 16 12 15 B/P (MAP) 80/55 90/56 (67) Pulse Ox 97 100 100 O2 Delivery Nasal Cannula* O2 Flow Rate 2.0 2 FiO2 28 12/09/24 12/09/24 13:57 14:43 Pulse 107 113 Resp 13 17 B/P (MAP) 81/52 (62) 85/49 (61) Pulse Ox 100 100 O2 Flow Rate 2.0 2.0 Laboratory Tests Test 12/09/24 12:08 12/09/24 12:09 12/09/24 14:00 Lactic Acid Level 3.2 H 3.6 H White Blood Count 15.2 H Red Blood Count 3.14 L Hemoglobin 9.9 L Hematocrit 30.5 L Mean Corpuscular Volume 97.3 Mean Corpuscular Hemoglobin 31.6 H Mean Corpuscular Hemoglobin Concent 32.4 L Red Cell Distribution Width 14.8 H Platelet Count 149 Mean Platelet Volume 7.8 Neutrophils (%) (Auto) 86.9 H Lymphocytes (%) (Auto) 3.6 L Monocytes (%) (Auto) 7.2 Eosinophils (%) (Auto) 2.0 Basophils (%) (Auto) 0.3 Neutrophils # (Auto) 13.2 H Lymphocytes # (Auto) 0.5 L Monocytes # (Auto) 1.1 H Eosinophils # (Auto) 0.3 Basophils # (Auto) 0.1 CBC Comment Prothrombin Time 10.2 INR International Normalized Ratio 1.0 Activated Partial Thromboplast Time 35 H Coagulation Comments Sodium Level 136 Potassium Level 4.4 Chloride Level 105 Carbon Dioxide Level 19.0 L Anion Gap 12 Blood Urea Nitrogen 28 H Creatinine 2.60 H Estimated GFR/1.73 m2 25 BUN/Creatinine Ratio 10.8 Glucose Level 122 H Calcium Level 8.1 L Magnesium Level 1.9 Total Bilirubin 0.4 Aspartate Amino Transf (AST/SGOT) 143 H Alanine Aminotransferase (ALT/SGPT) 32 Alkaline Phosphatase 87 Troponin I High Sensitivity 51613 *H 64735 *H Troponin I High Sens Percent Delta Troponin I Hi Sens Absolute Change Pro-B-Type Natriuretic Peptide 79405 H Total Protein 6.5 Albumin 2.4 L Globulin 4.1 Albumin/Globulin Ratio 0.6 L Procalcitonin 0.07 Chemistry Comments Microbiology Date/Time Source Procedure Growth Status 12/09/24 12:09 Blood Arm Left Blood Culture - Preliminary NEGATIVE (LESS THAN 24 HOURS) Resulted Medical Decision Making Findings Differential diagnosis includes but is not limited to: AAA, pulmonary embolus, aortic dissection, acute coronary syndrome, congestive heart failure, sepsis, dehydration, acute kidney injury, pneumonia, urinary tract infection EKG independent interpretation: Performed at 12:56 p.m. a.m.. Sinus tachycardia, heart rate 101, left bundle-branch block, left axis deviation Chest x-ray, single view, indication: Shortness a breath Independent interpretation: Lungs are clear, normal mediastinum, sternal wires, normal cardiac silhouette. No acute cardiopulmonary process. CTA Chest Abdomen and pelvis CT scan, indication: Shortness a breath, hypotension, Abdominal pain Impression: No acute intrathoracic or intraabdominal abnormality. No pulmonary embolus or aortic dissection seen. Laboratory data independent interpretation: CBC: Leukocytosis 15.2, moderate anemia 9.9 CMP: Bicarb is low at 19, elevated BUN and creatinine 28 and 2.6 respectively, lactic acid 3.2, AST mildly elevated 143, LFTs are otherwise normal 1st troponin: 54497 Pro BNP: 12366 Procalcitonin 0.07 Urinalysis: Emergency department course/medical decision-making: Patient is a 63-year-old man who comes in complaining of abdominal pain that is diffuse, perhaps more on the left and is hypotensive. Patient is given 1 L of LR. 2 L of LR is ordered. CTA of the chest abdomen and pelvis is performed to rule out PE, aortic dissection, AAA. Patient is actually hypothermic. Patient is likely septic. Patient given Rocephin 1 g IV. Patient is denying any chest pain. Patient's troponin is found to be extremely elevated. Cardiology will be called. Patient's EKG shows left bundle-branch block. However the patient is not having any other symptoms other than the abdominal pain. 1:47 p.m.: Just informed by nurses that the patient is now having chest pain at 12:56 p.m.. Cardiology is being consulted at [place] time[place] [address]. IV heparin will be started. Source of infection has been identified. Patient isn't thought to be septic. Stat echo has been ordered and the patient has an ejection fraction at best 15- 20% with paradoxical movement of the left ventricle and septum. Patient will be given Lasix 20 mg IV to diurese a lot of the fluid that was provided. Patient will also be given Lopressor 2.5 mg IV to slow the heart rate down. Dr. Nam is aware of the patient. Patient is followed by Dr. Nam. Case discussed with the son. As did Dr. Nam. I recommended DNR and explained that to his son. However he does not have medical power of disability attorney in his getting a hold of his half sister that may have medical [id number]. Patient has been confused for the last several weeks and had a pulse and paperwork ready to sign but he was not capable of signing. Consultation/communications: 1:50 p.m.: Case discussed with Dr. Olmstead. We will order stat echo. 40 5:00 p.m.: It was discovered the patient has seen in his followed by Dr. Kapoor. He will be consulted. 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 Case discussed with Dr. Nam. The patient has significant coronary artery disease with only a 90% circ that has open and a PEREZ from his last heart catheterization. We will continue current treatment and medical management is the only option. 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 Associated risk factors involving deterioration include: hypotension, heart f ailure, metabolic changes The very real possibility of a deterioration of this patient's condition required the highest level of my preparedness for sudden, emergent intervention. I provided critical care services, which included medication orders, frequent reevaluations of the patient's condition and response to treatment, ordering and reviewing test results, and discussing the case with necessary consultants. Critical care time was exclusive of necessary procedure time. The critical care time associated with the care of the patient was 60 minutes. Signature Scribe Signature: No scribe Attestation: No scribe AZALIA BARTLETT MD Dec 09, 2024 11:52
[2024-12-09 12:26] LABS: MEAN PLATELET VOLUME 7.8 FL (7.4-10.4); RED CELL DISTRIBUTION WIDTH 14.8 % (11.5-14.5)
[2024-12-09 12:40] LABS: APTT 35 SECONDS (22-32); INR 1.0 INR
[2024-12-09 12:43] LABS: CREATININE 2.60 MG/DL (0.60-1.10); TOTAL CARBON DIOXIDE 19.0 MMOL/L (24-32); eCRCL 24 ML/MIN; eGFR 25 ML/MIN
[2024-12-09 12:50] LABS: PRO BRAIN NATRIURETIC PEPTIDE 22551 PG/ML (0-125)
--- NOTE | 2024-12-09 13:26 | RADIOLOGY REPORT ---
CT CTA CHEST ABDOMEN PELVIS INDICATION: short of breath, ABD PAIN EXAM DATE: 12/09/2024 11:23 AM COMPARISON: CT CT ABDOMEN PELVIS on DOS: 08/05/23, CT CT PELVIS on DOS: 08/02/23, CT CT ABDOMEN PELVIS on DOS: 01/05/23 RADIATION DOSE: CTDIvol: 20 mGy, DLP: 1440 mGy*cm PROCEDURE: Helical CT images were obtained of the chest, abdomen, and pelvis with intravenous contras t. Sagittal and coronal reconstructions are provided. ORAL CONTRAST: None. ADDITIONAL IMAGES / REFORMATS: None All CT scans at this medical facility are performed using dose modulation techniques as appropriate t o a performed exam including the following: Automated exposure control was utilized; adjustment of th e MA and/or KV according to patient size; and use of iterative reconstruction technique. FINDINGS: CHEST: BONES: Scattered degenerative changes are noted in the visualized osseous structures. CHEST WALL: Normal. SOFT TISSUES:Normal. MEDIASTINUM: Normal. HEART: Normal. VESSELS: No pulmonary embolus seen. LYMPH NODES: Normal. PLEURA: Normal. AIRWAYS: Normal. LUNG: Mild bibasilar atelectasis. 6 mm LLL calcified pulmonary nodule. 4 mm RUL calcified pulmonary n odule. ABDOMEN AND PELVIS: BONES: Scattered degenerative changes are noted in the visualized osseous structures. LIVER: Normal. GALLBLADDER AND BILIARY TREE: No calcified gallstones. Normal caliber wall. No intra- or extrahepatic biliary ductal dilation. PANCREAS: Normal. SPLEEN: Normal. BOWEL: Normal. ADRENALS: Normal. KIDNEYS AND URETER: Bilateral renal cortical scarring is present. BLADDER: Hanson in the bladder. REPRODUCTIVE ORGANS: Normal. LYMPH NODES:No lymphadenopathy. PERITONEUM: No ascites or free air. No other fluid collection. VESSELS: Bilateral iliac artery stents appear patent. RETROPERITONEUM: Normal. ABDOMINAL WALL: Post surgical changes in the bilateral inguinal region. IMPRESSION: No acute intrathoracic or intraabdominal abnormality. No pulmonary embolus or aortic dissection seen.
--- NOTE | 2024-12-09 13:27 | ELECTROCARDIOGRAPH REPORT ---
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
[2024-12-09] MEDS ORDERED: heparin 10,000 units/1 ML INJ IV ONE (13:55)
[2024-12-09] MEDS: normal saline 1000ML IV soln IVB ONE (13:56)
[2024-12-09] MEDS: heparin 10,000 units/1 ML INJ IV ONE (14:37)
[2024-12-09] MEDS: heparin 25,000 UNIT/250ml bag 250 ML IV PRN (14:39)
--- NOTE | 2024-12-09 15:05 | CONSULTATION REPORT ---
Consult Providers to CC ~ History of Present Illness Reason for Admit\Complaint: Hypotension, suspected sepsis History of Present Illness 63-year-old male admitted to the hospital with a chief complaint of abdominal pain accompanied by loose bowel movements without any nausea or vomiting. The patient also reports having had some chest pains in the past few days that were on and off described as similar to the chest pain that he had when he had a myocardial infarction. His workup in the emergency department revealed hypotension. His EKG revealed a left bundle branch block of unknown age. He was also notable for leukocytosis of 15.2 with neutrophil predominance. He had a BUN of 28 and a creatinine of 2.60. His glucose was 212. At the time when I saw him, he was awake alert and conversant. He did not seem to be in any distress. He did not have any chest pain at my time of visiting with him. Allergies: Coded Allergies: amoxicillin (Verified Allergy, Intermediate, SWELLING, 11/18/24) aripiprazole (Verified Allergy, Unknown, 11/18/24) escitalopram oxalate (Unverified Allergy, Unknown, 11/18/24) STATES 3 OTHER ALLERGIES, CAN'T REMEBER NAMES OF MEDS Uncoded Allergies: LINAZOPRIL PSHYC MED (Allergy, Severe, SWELL, 05/12/11) Home Medications Home Medications Active Culturelle (Lactobacillus Rhamnosus) 10 Billion Cell Capsule 1 Cap PO DAILY 30 Days Culturelle (Lactobacillus Rhamnosus) 10 Billion Cell Capsule 1 Cap PO BID 30 Days Atorvastatin Calcium 20 Mg Tablet 20 Mg PO DAILY 30 Days Reported Famotidine 20 Mg Tablet 1 Tab PO DAILY Metformin HCl 500 Mg Tablet 1 Tab PO BID Ezetimibe 10 Mg Tablet 1 Tab PO DAILY Quetiapine Fumarate ER (Quetiapine Fumarate) 300 Mg Tab.er.24h 1 Tab PO HS Multi-Vitamin Daily (Multivitamin) 1 Each Tablet 1 Tab PO DAILY 30 Days Ventolin Hfa (Albuterol Sulfate) 90 Mcg Hfa.aer.ad 2 Puffs INH Q4H PRN Atorvastatin Calcium 40 Mg Tablet 1 Tab PO DAILY Ferrous Sulfate 325 Mg (65 Mg Iron) Tablet 1 Tab PO DAILY 30 Days Neurontin (Gabapentin) 300 Mg Capsule 1 Tab PO BID Bupropion HCl 75 Mg Tablet 1 Tab PO QAM Trazodone HCl 50 Mg Tablet 2 Tab PO HS 30 Days Depakote ER* (Divalproex Sodium) 500 Mg Tab.sr.24h 2 Tab PO HS Synthroid (Levothyroxine Sodium) 50 Mcg Tablet 1 Tab PO DAILY Losartan Potassium 50 Mg Tablet 1 Tab PO DAILY Past Medical History Past Medical History Myocardial infarction, right CVA with a residual left sided weakness that has rendered him wheelchair-bound and a previous history of diabetes mellitus for which she took insulin but is no longer on insulin according to the patient. Seems if history of depression, hypothyroidism. Past Surgical History Surgical History Comment Unremarkable. Family History Family History: FH: bipolar disorder FH: schizophrenia Past Social History Social History Comment Used to smoke in the past. Does not drink alcohol. No history of illicit drug use. Exam Vitals: Vital Signs Date Time Temp Pulse Resp B/P (MAP) Pulse Ox O2 Delivery O2 Flow Rate FiO2 12/09/24 14:43 113 17 85/49 (61) 100 2.0 12/09/24 11:09 97.9 12/09/24 10:57 Nasal Cannula* 28 General: No apparent distress HEENT: NC/AT, PERRLA, EOMI Neck: Supple with no jugular venous distention and no lymphadenopathy. Chest: Symmetric expansion bilaterally. Cardiovascular: Normal S1 and S2 without any S3-S4 gallop. Abdomen: Nondistended with normoactive bowel sounds soft nontender no organomegaly. Extremities: No cyanosis clubbing edema. Central Nervous System: Residual left hemiparesis. Diagnostic Data Last Recorded Lab Results: 12/09/24 1209 12/09/24 1209 Diagnostic Data: Laboratory Tests Test 12/09/24 12:09 Prothrombin Time 10.2 SECONDS (9.0-12.0) INR International Normalized Ratio 1.0 INR Activated Partial Thromboplast Time 35 SECONDS (22-32) H Coagulation Comments Additional Plan Non-STEMI or STEMI (STEMI if the left bundle branch block is new) Hypotension: Most likely cardiac cause after myocardial infarction. Doubt sepsis. May have a combination of myocardial ischemia and hypovolemia Leukocytosis: Most likely due to myocardial necrosis. CHERIE on CKD Hyperglycemia: Remote history of diabetes mellitus and insulin use. Hypoalbuminemia Sepsis a doubtful diagnosis. Plan Aspirin and heparin highly recommended Echocardiography pending Cardiology consult also pending. Dr. Olmstead we will see the patient Heart healthy diet Sliding scale insulin to maintain serum glucose levels of 140-180 mg/dL. Overall prognosis: Guarded Critical care time in excess of 35 minutes. ADAMA CLAY MD Dec 09, 2024 15:05
[2024-12-09] MEDS ORDERED: magnesium sulf-water 4G/100mL 100 ML IV PRN (15:20)
[2024-12-09] MEDS ORDERED: magnesium hydroxide 30ml (MOM) UD suspension PO PRN (15:20)
[2024-12-09] MEDS ORDERED: potassium Cl 40MEQ/1/2NS 520ml 520 ML IV PRN (15:20)
[2024-12-09] MEDS ORDERED: magnesium sulf-water 2g/50mL 50 ML IV PRN (15:20)
[2024-12-09] MEDS ORDERED: magnesium Cl slow-release 64mg tablet PO PRN (15:20)
[2024-12-09] MEDS ORDERED: ondansetron/PF 4mg/2ml inj IV PRN (15:20)
[2024-12-09] MEDS ORDERED: mag hydrox/Alum hydrox/simeth 30ml oral suspension PO PRN (15:20)
[2024-12-09] MEDS ORDERED: potassium Cl 20 mEq SR tablet PO PRN ×2 (15:20)
[2024-12-09] MEDS ORDERED: OMEP10CA5 PO (16:20)
[2024-12-09] MEDS ORDERED: RIVA10TA PO (16:20)
[2024-12-09] MEDS ORDERED: ASPI-1265 PO (16:20)
[2024-12-09] MEDS: metoprolol tartrate 1mg/ml inj IV ONE (16:48)
[2024-12-09] MEDS: furosemide 10 MG/1 ML 10ml inj IV ONE (16:51)
[2024-12-09] MEDS: docusate sod 100mg capsule PO SCH (20:00)
[2024-12-09] MEDS: K and/or MAG REPLACEMENT MC SCH (20:00)
--- NOTE | 2024-12-09 20:00 | CONSULTATION REPORT ---
Cardiac Consultation Report Providers to CC CC: MIHAI LAST MD ~ Progress Note: 63yo man with HTN, HLD, DM, PAD, CAD(s/p 4vCABG), HFrEF, CVA, MDD admitted with abdominal pain/diarrhea x 1 day. pt seen at bedside, however, appears to be confused. Did call son to get a better history. Has had recurrent admission for UTI's. States he had 2 recurrent UTI's the last 2 weeks, has had several rounds of Antibiotics. He had been attempting to discuss with psychiatry as he reports pt continues to masterbate several times/day which leads to recurrent UTI's. Today, was told by patient that he had diarrhea, so when he went to see him, found him in his feces. Had another episode of diarrhea so was brought in. Objective Vitals Vital Signs Date Time Temp Pulse Resp B/P (MAP) Pulse Ox O2 Delivery O2 Flow Rate FiO2 12/09/24 19:00 98 19 98/69 (79) 100 2.0 12/09/24 11:09 97.9 12/09/24 10:57 Nasal Cannula* 28 Lab Results: 12/09/24 1209 12/09/24 1209 Objective GENERAL: Awake, arousable, not oriented CV: Reg rhythm, ++Tachy. ++III/ SM RUSB LUNGS: ++Coarse BS b/l GI: +BS, soft. ++Mild SOREN TTE. EXT: 2+ radial pulses, no edema Coagulation Studies Laboratory Tests Test 12/09/24 12:09 Prothrombin Time 10.2 SECONDS (9.0-12.0) INR International Normalized Ratio 1.0 INR Activated Partial Thromboplast Time 35 SECONDS (22-32) H Coagulation Comments Problem\Assessment\Plan Problems/Diagnosis: (1) NSTEMI (non-ST elevated myocardial infarction) Assessment & Plan: May be combination of Type I/Type II. Prior 4vCABG with recent LHC ~1 year ago Revealing occluded vein grafts, patent PEREZ-LAD, occluded LAD, RCA, high-grade LMCA-LCx disease. TTE with reduced LVEF. --Had an extensive discussion with the patient/son regarding prognosis. --Given some confusion, recurrent UTI's, NATHALIE on CKD with contrast dose today for CTA and unclear if he would be a candidate for hemodialysis, decided not to proceed with LHC/intervention. He has known PAD with occluded Rt ROCK stent. --Recommend cont heparin gtt x 48hrs --Cont GDMT for HFrEF if BP tolerates --Cont ASA 81mg QD, Plavix 75mg QD x12 months, statin FLORINA LAST MD Dec 09, 2024 20:00
[2024-12-09 21:30] VITALS: BP 98/64; PULSE 100; RESP 22; O2SAT 97
[2024-12-09] MEDS: MESSAGE TO NURSING IV ONE (21:38)
[2024-12-09 22:00] VITALS: BP 97/61; PULSE 101; RESP 19; RESP 22; O2SAT 97
[2024-12-09 23:00] VITALS: BP 91/57; PULSE 103; RESP 17; O2SAT 92
[2024-12-09] MEDS: ringers solution, lacted 1,000 ML IV SCH (23:13)
[2024-12-10] VITALS (20 sets, daily range): BP systolic 89–101; BP diastolic 56–68; PULSE 93–122; RESP 18–38; O2SAT 92–99
[2024-12-10 02:47] LABS: MEAN PLATELET VOLUME 7.6 FL (7.4-10.4); RED CELL DISTRIBUTION WIDTH 14.5 % (11.5-14.5)
[2024-12-10] MEDS: MESSAGE TO NURSING IV ONE ×3 (05:27→19:20)
--- NOTE | 2024-12-10 05:57 | ELECTROCARDIOGRAPH REPORT ---
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
[2024-12-10] MEDS: albumin (human) 25% 100 ML IV solution IV ONE (08:55)
[2024-12-10 08:58] LABS: C DIFF ANTIGEN POSITIVE (NEGATIVE); C DIFF SPECIMEN=DIARRHEA? ACCEPTABLE; C DIFFICILE TOXINS A&B POSITIVE (Neg)
[2024-12-10 10:02] LABS: CREATININE 2.11 MG/DL (0.60-1.10); PHOSPHORUS 4.4 MG/DL (2.3-4.5); TOTAL CARBON DIOXIDE 16.4 MMOL/L (24-32); eCRCL 30 ML/MIN; eGFR 32 ML/MIN
--- NOTE | 2024-12-10 10:02 | ELECTROCARDIOGRAPH REPORT ---
[facility] Test Date: 2024-12-10 Test Time: 10:00:15 Pat Name: DAYANA MARTINEZ [facility] Patient ID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 Reading MD: Dr. MARQUEZ Chong Measurements Intervals [place] Rate: 113 P: 0 TX: 0 QRS: -58 QRSD: 176 T: 98 QT: 442 QTc: 607 Interpretive Statements Junctional tachycardia Left bundle branch block Electronically Signed On 12-11-2024 16:32:[address] MARQUEZ Chong Please click the below link to view image of tracing.
--- NOTE | 2024-12-10 11:21 | CONSULTATION REPORT ---
Consult Providers to CC ~ History of Present Illness Reason for Admit\Complaint: NSTEMI History of Present Illness Burton Serra is a 63-year-old male with a past medical history of CABG, systolic heart failure, CVA, PAD s/p right common iliac artery stent who was admitted with chief complaint of abdominal pain and diarrhea x 1 day. Patient was admitted to ICU for management of NSTEMI with troponins in 45,000ng/L. Cardiology was consulted and recommended medical management with heparin drip, GDMT, DAPT, statin as patient is not a good candidate for LHC/intervention. Allergies: Coded Allergies: amoxicillin (Verified Allergy, Intermediate, SWELLING, 11/18/24) aripiprazole (Verified Allergy, Unknown, 11/18/24) escitalopram oxalate (Unverified Allergy, Unknown, 11/18/24) STATES 3 OTHER ALLERGIES, CAN'T REMEBER NAMES OF MEDS Uncoded Allergies: LINAZOPRIL PSHYC MED (Allergy, Severe, SWELL, 05/12/11) Home Medications Home Medications Active Reported Omeprazole 10 Mg Capsule.dr 1 Cap PO DAILY 30 Days Xarelto (Rivaroxaban) 10 Mg Tablet 1 Tab PO DAILY 7 Days Aspirin 81 Mg Tab.chew 1 Tab PO DAILY 30 Days Famotidine 20 Mg Tablet 1 Tab PO DAILY Metformin HCl 500 Mg Tablet 1 Tab PO BID Ezetimibe 10 Mg Tablet 1 Tab PO DAILY Quetiapine Fumarate ER (Quetiapine Fumarate) 300 Mg Tab.er.24h 1 Tab PO HS Multi-Vitamin Daily (Multivitamin) 1 Each Tablet 1 Tab PO DAILY 30 Days Ventolin Hfa (Albuterol Sulfate) 90 Mcg Hfa.aer.ad 2 Puffs INH Q4H PRN Atorvastatin Calcium 40 Mg Tablet 1 Tab PO DAILY Ferrous Sulfate 325 Mg (65 Mg Iron) Tablet 1 Tab PO DAILY 30 Days Neurontin (Gabapentin) 300 Mg Capsule 1 Tab PO BID Bupropion HCl 75 Mg Tablet 1 Tab PO QAM Trazodone HCl 50 Mg Tablet 2 Tab PO HS 30 Days Depakote ER* (Divalproex Sodium) 500 Mg Tab.sr.24h 2 Tab PO HS Synthroid (Levothyroxine Sodium) 50 Mcg Tablet 1 Tab PO DAILY Losartan Potassium 50 Mg Tablet 1 Tab PO DAILY Past Medical History Past Medical History Systolic heart failure CVA PAD s/p right ROCK stent Past Surgical History Surgical History Comment CABG Right ROCK stent Family History Family History: FH: bipolar disorder FH: schizophrenia Exam Vitals: Vital Signs Date Time Temp Pulse Resp B/P (MAP) Pulse Ox O2 Delivery O2 Flow Rate FiO2 12/10/24 09:30 Nasal Cannula 2.0 12/10/24 06:00 101 24 98/62 (74) 96 12/10/24 05:00 100.9 12/09/24 10:57 28 General: Lethargic, difficult to arouse, NAD HEENT: Normocephalic, PERRLA Neck: Supple, trachea midline, no JVD Chest: Clear to auscultation bilaterally Cardiovascular: RRR, S1&S2 Abdomen: Soft and nontender Extremities: No cyanosis/clubbing/or edema Central Nervous System: No focal deficits Musculoskeletal: Contracture of left hand Skin: Warm and intact Diagnostic Data Last Recorded Lab Results: 12/10/24 0236 12/10/24 0933 Diagnostic Data: Laboratory Tests Test 12/09/24 12:09 12/10/24 08:32 Prothrombin Time 10.2 SECONDS (9.0-12.0) INR International Normalized Ratio 1.0 INR Activated Partial Thromboplast Time 35 SECONDS (22-32) H APTT (Heparin Protocol) 62 SECONDS (45-60) H Coagulation Comments Additional Plan Assessment & Plan NSTEMI Hx CABG Acute decompensated systolic heart failure, LVEF 25% Hypotension CHERIE on CKD Hyperglycemia Hypoalbuminemia -care continued in ICU, sand cleaning machine operator Dr. Nam consulted, recommended medical management with heparin drip x48h, GDMT, DAPT, statin as patient is not a good candidate for LHC/intervention. CVA PAD s/p right ROCK stent Date of Service: Dec 10, 2024 Billing Provider: HANNY HARRIS Common Visit Codes: 06052-[id number] INP/OBS CARE (HIGH) HANNY HARRIS Dec 10, 2024 11:21
[2024-12-10] MEDS: vancomycin 125 MG/5 ML UD oral SOLN.RECON 5mL oral syringe (FIRVANQ) PO SCH (11:55)
[2024-12-10] MEDS: nitroGLYCERIN 1gm ointment UD TP SCH (11:55)
[2024-12-10] MEDS ORDERED: QUET50TA94 PO (13:34)
--- NOTE | 2024-12-10 16:05 | PROGRESS NOTE- Residence ---
Progress Note - Resident Providers to CC Resident Creating Document: FAMILIA MORALES RES CC: ADAMA CLAY MD ~ Antibiotic Timeout Antibiotic Ordered?: Yes Subjective Patient is examined at bedside. Patient continues to complain of chest pain. Patient is stool is positive for C diff. Objective Vital Signs Date Time Temp Pulse Resp B/P (MAP) Pulse Ox O2 Delivery O2 Flow Rate FiO2 12/10/24 15:00 110 29 96/62 (73) 99 Nasal Cannula 2.0 12/10/24 05:00 100.9 12/09/24 10:57 28 Result Diagram: 12/10/24 0236 12/10/24 0933 General: Alert, awake, oriented, not in acute distress HEENT: PERRLA, no icterus, pallor, lymphadenopathy, carotid bruit Respiratory system: Bilateral vesicular breath sounds heard, no adventitious breath sounds CVS: Linear CABG scar present, S1-S2 heard, grade 3/6, ejection systolic murmur present in the aortic area GI: Soft, nontender, no organomegaly, no guarding/rigidity, bowel sounds present Neuro: No focal neurological deficits present Extremities: No edema cyanosis clubbing/deformities Skin: Warm and dry Coagulation Studies Laboratory Tests Test 12/09/24 12:09 12/10/24 08:32 12/10/24 15:51 Prothrombin Time 10.2 SECONDS (9.0-12.0) INR International Normalized Ratio 1.0 INR APTT (Heparin Protocol) 62 SECONDS (45-60) H Coagulation Comments Assessment Assessment A 63-year-old male with a past medical history of CAD status post CABGx4 presented to the ED in view of chest pain. Patient's troponin were elevated and had an EKG findings of left bundle-branch block of unknown age. The LBBB was previously present. Cardiology recommended goals of care. Patient is being admitted for the management of NSTEMI. Patient is stable for transfer to the floor. Plan Plan NSTEMI CAD s/p CABGX4 History of recent LHC which revealed occluded vein grafts, patent PEREZ-LAD, occluded LAD, RCA, high-grade LMCA-LCx disease Elevated troponins LBBB, new onset ruled out One dose of aspirin 325 mg given, continue aspirin 81 mg On heparin drip for 48 hours Nitro paste and sublingual nitroglycerin for chest pain Continue Plavix 75 mg once daily Optimization with GDM T C diff colitis Isolation precautions Continue vancomycin p.o. 125 mg q.6h CHERIE on CKD History of recurrent UTI Elevated BUN and creatinine Continue to monitor BMP Code status: Full code Diet: Heart healthy Anticoagulation: Heparin drip, aspirin, Plavix Disposition: Patient is stable for transfer to the floor, continue consultations with Cardiology and goals of care management Familia Morales MD Internal Medicine, PGY 2 Date of Service: Dec 10, 2024 Billing Provider: ADAMA CLAY MD,FAMILIA, RES Dec 10, 2024 16:05
[2024-12-10 16:09] LABS: APTT 40 SECONDS (22-32)
--- NOTE | 2024-12-10 18:22 | CARDIOLOGY REPORT ---
APPROVED REPORT EXAM: Limited 2D, Doppler, and color-flow Echocardiogram. 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 Velocity 258 cm/s RAP ESTIMATE 10 mmHg TR Peak Gr. 27 mmHg RVSP 37 mmHg LEFT VENTRICLE Normal LV size and wall thickness. Overall systolic function is severely reduced. LVEF is 25%. Signif icant reduction from previous exam. RIGHT VENTRICLE RV is normal size and function. Elevated right heart pressures with an RVSP of 37 mmHg. ATRIA Left atrium is severely dilated. AORTIC VALVE Trileaflet AV appears mildly sclerotic without stenosis or insufficiency. MITRAL VALVE Mild MV annular calcification without stenosis. Moderate regurgitation (increased from 09/21/24 trace regurgitation). TRICUSPID VALVE TV appears structurally normal with mild regurgitation. PULMONIC VALVE Normal PV without stenosis, physiologic insufficiency. GREAT VESSELS Aortic root is normal in size. Ascending aorta is normal in size. PERICARDIUM Normal pericardium. No effusion. Other Information Study Quality: Adequate Conclusion Normal LV size and wall thickness. Overall systolic function is severely reduced. LVEF is 25%. Signi ficant reduction from previous 09/21/24 exam. RV is normal size and function. Elevated right heart pressures with an RVSP of 37 mmHg. Left atrium is severely dilated. Trileaflet AV appears mildly sclerotic without stenosis or insufficiency. Mild MV annular calcification without stenosis. Moderate regurgitation (increased from 09/21/24 trace regurgitation). TV appears structurally normal with mild regurgitation. Normal pericardium. No effusion.
[2024-12-10] MEDS: heparin 10,000 units/1 ML INJ IV PRN (20:47)
[2024-12-11] MEDS: HYDROcodone/acetaminophen 5mg/325mg tablet PO ONE (01:28)
[2024-12-11] MEDS: MESSAGE TO NURSING IV ONE ×2 (03:35→14:07)
--- NOTE | 2024-12-11 04:21 | RADIOLOGY REPORT ---
CHEST RADIOGRAPH Indication: shortness of breath Technique: Single frontal view of the chest was obtained COMPARISON: DI CHEST,SINGLE VIEW on DOS: 12/09/24, DI CHEST,SINGLE VIEW on DOS: 11/18/24, DI CHEST,SING LE VIEW on DOS: 11/06/24, DI CHEST,SINGLE VIEW on DOS: 09/21/24, DI CHEST,SINGLE VIEW on DOS: 08/02/23 FINDINGS: Lines and Tubes: None Lungs: Clear Pleura: No effusion. No pneumothorax. Cardiomediastinal contours: Unremarkable status post median sternotomy. Atherosclerotic vascular jake cifications. Bones: Unremarkable IMPRESSION: 1. No acute disease.
[2024-12-11] MEDS ORDERED: heparin 25,000 UNIT/250ml bag 250 ML IV PRN (04:30)
[2024-12-11 06:00] VITALS: BP 96/68; PULSE 115; RESP 32; TEMP 97.1; O2SAT 90
[2024-12-11 06:08] LABS: MEAN PLATELET VOLUME 7.7 FL (7.4-10.4); RED CELL DISTRIBUTION WIDTH 15.1 % (11.5-14.5)
[2024-12-11 06:42] LABS: CREATININE 3.41 MG/DL (0.60-1.10); PHOSPHORUS 6.8 MG/DL (2.3-4.5); eCRCL 18 ML/MIN; eGFR 18 ML/MIN
[2024-12-11 06:57] LABS: TOTAL CARBON DIOXIDE 14.1 MMOL/L (24-32)
[2024-12-11 07:56] LABS: PLATELET ESTIMATE NORMAL
[2024-12-11 08:00] VITALS: RESP 32; O2SAT 90
[2024-12-11 08:30] VITALS: BP 90/55
[2024-12-11 09:30] LABS: LEUKOCYTE ESTERASE ,URINE NEGATIVE (Neg); NITRITES, URINE NEGATIVE (Neg); OCCULT BLOOD,URINE MODERATE (Neg)
[2024-12-11] MEDS: sodium bicarbonate 1meq/ml inj 150 ML in sodium chloride 0.45% 1,000 ML IV SCH (09:36)
[2024-12-11 09:37] LABS: UA COLLECTION TYPE NON-SPECIFIED
[2024-12-11 09:43] LABS: SQUAMOUS EPITHELIAL CELL,UR FEW /LPF (FEW)
--- NOTE | 2024-12-11 11:50 | CONSULTATION REPORT - RESIDENT ---
Consult Providers to CC Resident Creating Document: JUANIS COTTRELL, SASHA CC: ADAN COLEMAN MD History of Present Illness Reason for Admit\Complaint: NSTEMI History of Present Illness HPI PER ADMITTING PHYSICIAN: A 63-year-old male admitted to the hospital with a chief complaint of abdominal pain accompanied by loose bowel movements without any nausea or vomiting. The patient also reports having had some chest pains in the past few days that were on and off described as similar to the chest pain that he had when he had a myocardial infarction. His workup in the emergency department revealed hypotension. His EKG revealed a left bundle branch block of unknown age. He was also notable for leukocytosis of 15.2 with neutrophil predominance. He had a BUN of 28 and a creatinine of 2.60. His glucose was 212. NEPHROLOGY CONSULT A 63-year-old male patient wheelchair-bound with past history of hypertension, hyperlipidemia, type 2 diabetes mellitus, peripheral artery disease, coronary artery disease status post CABG, CVA was admitted with complaints of diarrhea. Patient has had recurrent episodes of UTI for which he was admitted multiple times in the recent past. Patient has been tested positive for C diff in this admission. Patient has a history of chronic kidney disease and his baseline appears to be 1.8-1.9, we have been consulted for his increase in creatinine. Patient has an indwelling Hanson catheter in place. Patient was seen and examined with his caregiver by his side, who stated to me that they are having a tough time as a family to decide between DNR and full code. Allergies: Coded Allergies: amoxicillin (Verified Allergy, Intermediate, SWELLING, 11/18/24) aripiprazole (Verified Allergy, Unknown, 11/18/24) escitalopram oxalate (Unverified Allergy, Unknown, 11/18/24) STATES 3 OTHER ALLERGIES, CAN'T REMEBER NAMES OF MEDS Uncoded Allergies: LINAZOPRIL PSHYC MED (Allergy, Severe, SWELL, 05/12/11) Home Medications Home Medications Active Reported Quetiapine Fumarate ER (Quetiapine Fumarate) 50 Mg Tab.er.24h 1 Tab PO HS 30 Days Aspirin 81 Mg Tab.chew 1 Tab PO DAILY 30 Days Famotidine 20 Mg Tablet 1 Tab PO DAILY Metformin HCl 500 Mg Tablet 1 Tab PO BID Ezetimibe 10 Mg Tablet 1 Tab PO DAILY Quetiapine Fumarate ER (Quetiapine Fumarate) 300 Mg Tab.er.24h 1 Tab PO HS Multi-Vitamin Daily (Multivitamin) 1 Each Tablet 1 Tab PO DAILY 30 Days Ventolin Hfa (Albuterol Sulfate) 90 Mcg Hfa.aer.ad 2 Puffs INH Q4H PRN Atorvastatin Calcium 40 Mg Tablet 1 Tab PO DAILY Ferrous Sulfate 325 Mg (65 Mg Iron) Tablet 1 Tab PO DAILY 30 Days Neurontin (Gabapentin) 300 Mg Capsule 1 Tab PO BID Bupropion HCl 75 Mg Tablet 1 Tab PO QAM Trazodone HCl 50 Mg Tablet 2 Tab PO HS 30 Days Depakote ER* (Divalproex Sodium) 500 Mg Tab.sr.24h 2 Tab PO HS Synthroid (Levothyroxine Sodium) 50 Mcg Tablet 1 Tab PO DAILY Losartan Potassium 50 Mg Tablet 1 Tab PO DAILY Past Medical History Past Medical History Coronary Artery Disease, Hyperlipidemia Hypertension, Chronic Kidney Disease Schizophrenia Allergic Rhinitis, Past Surgical History Surgical History Comment Coronary artery bypass surgery B/L cataracts Family History Family History: FH: bipolar disorder FH: schizophrenia Past Social History Social History Comment Patient used to be a smoker but quit couple of years ago Denies any alcohol or drug use ROS ROS Constitutional: No fever, dizziness, weakness present, no decrease in appetite HEENT: Normal vision. No sore throat, epistaxis, tinnitus Cardiovascular: No chest pain/discomfort, palpitations, syncope. No pedal edema Respiratory: No sob, cough with sputum present, no hemoptysis Gastrointestinal: Reports abdominal pain, no nausea, no vomiting. No diarrhea, melena. Genitourinary: No frquency, urgency, incontinence, nocturia. No dysuria, hematuria Musculoskeletal: Normal, bilateral lower extremities wasting present Endocrine: No fatigue, polydipsia, polyuria. No heat or cold intolerance Neurologic: No headache, vertigo. Left hemiparesis, no numbness or tingling of extremities Psychiatric: No hallucinations/delusions, no anhedonia, no suicidal ideation Hematologic: No bruises Exam Vitals: Vital Signs Date Time Temp Pulse Resp B/P (MAP) Pulse Ox O2 Delivery O2 Flow Rate FiO2 12/11/24 08:30 90/55 (67) 12/11/24 08:00 32 90 Nasal Cannula 5.0 12/11/24 06:30 105 12/11/24 06:00 97.1 12/09/24 10:57 28 General: Awake, oriented to person, place and time, HEENT: Conjunctive are pink, sclerae clear, no icterus, pupil is equal in both sides, reactive to light Neck: Supple, no JVD, no lymphadenopathy and thyromegaly. Chest: Equal air entry on both lungs, rhonchi heard bilateral lung bases Cardiovascular: Linear CABG scar present, S1-S2 heard, ejection systolic murmur heard in the aortic area Abdomen: Bowel sounds present on auscultation, soft, mild tenderness in the epigastrium, no guarding, no rigidity Extremities: Bilateral lower extremities wasting noted, no pitting edema bilaterally, capillary refill intact, peripheral pulsations are intact on both sides Central Nervous System: Left hemiparesis, right upper extremity and right lower extremity tone and power 5/5 Musculoskeletal: No joint swelling, deformities, inflammations, and no scoliosis and back tenderness Skin: Warm and dry. Dry oral mucosa. Diagnostic Data Last Recorded Lab Results: 12/11/24 0554 12/11/24 0554 Diagnostic Data: Laboratory Tests Test 12/09/24 12:09 12/10/24 15:51 12/11/24 02:45 Prothrombin Time 10.2 SECONDS (9.0-12.0) INR International Normalized Ratio 1.0 INR Activated Partial Thromboplast Time 40 SECONDS (22-32) H APTT (Heparin Protocol) 77 SECONDS (45-60) H Coagulation Comments Additional Plan CHERIE on CKD stage IV, Cardiorenal syndrome EF is 25% History of recurrent UTI infections, patient has chronic indwelling catheter Recent radiocontrast dye exposure High anion gap metabolic acidosis, lactic acidosis Patient's baseline creatinine appears to be 1.8-1.9, Currently patient's creatinine increased from 2.11 to 3.61, GFR is 18, elevated BUN 34, Patient's HCO3 14.1, high anion gap 19 Patient does appear dry but unfortunately can not give him more fluids keeping in mind his low EF UO 400 mL CTA abdomen-Bilateral renal cortical scarring is present. Plan -continue bicarb infusion at 100 mL per hour -ordered urinelytes -continue to monitor creatinine -strict input and output monitor Electrolyte abnormalities Hyperkalemia K+5.4 Continue strict monitoring of potassium NSTEMI CAD s/p CABGX4 History of recent LHC which revealed occluded vein grafts, patent PEREZ-LAD, occluded LAD, RCA, high-grade LMCA-LCx disease Elevated troponins LBBB, new onset Manage as per primary care team Transaminasemia, acute onset AST elevated at 6817,ALT elevated at 3313 Manage as per primary care team C diff colitis Isolation precautions Continue vancomycin p.o. 125 mg q.6h Manage as per primary care team Disposition: We will continue to closely monitor patient's renal functions, follow up with urine rae Cottrell Internal medicine resident Nephrology Attending: Have been in touch with the nephrology resident and also with Pete Mosher, the hat brim curler in charge of the patient. patient now has worsenign K of 6 and bicarb dropping to11. Really looking ominous and I advised xferring back to ICU, She worked with who in turn spoke with the daughter over the phone about the worsenign renal failure in amelia setting of cardiorenal syndrome and worsening acidosis and hyperkalemia and now with complete heart block. they have switched him to comfort care pathway. Our team will sign off. Adan Coleman MD Date of Service: Dec 11, 2024 Billing Provider: ADAN COLEMAN MD, JAHNAVI, RES Dec 11, 2024 11:50 ADAN COLEMAN MD Dec 11, 2024 15:46
[2024-12-11 12:47] LABS: CREATININE 3.79 MG/DL (0.60-1.10); PHOSPHORUS 7.8 MG/DL (2.3-4.5); eCRCL 16 ML/MIN; eGFR 16 ML/MIN
[2024-12-11 12:57] LABS: TOTAL CARBON DIOXIDE 11.0 MMOL/L (24-32)
--- NOTE | 2024-12-11 13:32 | ELECTROCARDIOGRAPH REPORT ---
[facility] Test Date: 2024-12-11 Test Time: 13:30:45 Pat Name: DAYANA MARTINEZ Department: [facility]S Patient ID: [facility]-[id number] Room: [place] [address] A Gender: M Geriatric Care Manager: : 1960 Requested By: HANNY HARRIS Order Number: [id number] Reading MD: Dr. MARQUEZ Chong Measurements Intervals [place] Rate: 103 P: 0 [place]: 0 QRS: -75 QRSD: 205 T: 95 QT: 476 QTc: 623 Interpretive Statements Junctional tachycardia Left bundle branch block Electronically Signed On 12-11-2024 16:33:[address] MARQUEZ Chong Please click the below link to view image of tracing.
[2024-12-11] MEDS: calcium chloride 100 MG/1 ML inj IV STA (13:44)
[2024-12-11 13:58] VITALS: BP 115/69; PULSE 89; RESP 21; TEMP 98.3; O2SAT 95
[2024-12-11] MEDS: vancomycin 125 MG/5 ML UD oral SOLN.RECON 5mL oral syringe (FIRVANQ) PO SCH (14:00)
[2024-12-11] MEDS: insulin regular, human 10 units/0.1 ml syringe IV ONE (14:03)
[2024-12-11] MEDS: dextrose 50%-water 50ml dispensing syringe IV ONE (14:03)
[2024-12-11] MEDS: albuterol 2.5 MG/3 ML nebule CONTNEB ONE (14:03)
[2024-12-11 14:05] VITALS: PULSE 98; RESP 20; O2SAT 100
[2024-12-11] MEDS: sodium polystyrene sulfonate 15gm/60ml oral suspension PO ONE (14:07)
[2024-12-11 14:10] LABS: ABG BASE EXCESS -15.0 mmol/L (-2.0-3.0); ABG HCO3 9.0 mmol/L (21.0-28.0); ABG OXYGEN SATURATION 98.2 % (94.0-98.0); ABG PCO2 (T) 16.9 mmHg (35.0-48.0); ABG PH (T) 7.343 (7.350-7.450); ABG PO2 (T) 126.8 mmHg (83.0-108.0); ALLEN'S TEST POSITIVE; FCOHb 0.5 % (0.5-1.5); FHHb 1.8 % (0.0-5.0); FIO2 44.0 mmHg/%; FMetHb 0.3 % (0.0-1.5); FO2Hb 97.4 % (94.0-98.0); MODE NASAL CANNULA; PATIENT TEMPERATURE 36.6; TOTAL HEMOGLOBIN 8.6 G/dl (13.5-17.5)
--- NOTE | 2024-12-11 14:18 | ELECTROCARDIOGRAPH REPORT ---
[facility] Test Date: 2024-12-11 Test Time: 14:15:42 Pat Name: DAYANA MARTINEZ Department: [facility] 3S Patient ID: [facility]-[id number] Room: [place] [address] A Gender: M Study Abroad Coordinator: : 1960 Requested By: HANNY HARRIS Order Number: [id number] Reading MD: Dr. MARQUEZ Chong Measurements Intervals [place] Rate: 106 P: 0 [place]: 0 QRS: -74 QRSD: 211 T: 100 QT: 474 QTc: 630 Interpretive Statements Junctional tachycardia/? sinus tachycardia with left bundle-branch block Nonspecific IVCD with LAD LVH with secondary repolarization abnormality Electronically Signed On 12-11-2024 16:34:[address] MARQUEZ Chong Please click the below link to view image of tracing.
--- NOTE | 2024-12-11 14:36 | RADIOLOGY REPORT ---
EXAM: DI CHEST,SINGLE VIEW TECHNIQUE: Single frontal chest radiograph CLINICAL HISTORY: comgested COMPARISON: DI CHEST,SINGLE VIEW on DOS: 12/11/24, DI CHEST,SINGLE VIEW on DOS: 12/09/24, DI CHEST,SING LE VIEW on DOS: 11/18/24 Findings/Impression: Frontal chest radiograph demonstrates no acute osseous or superficial soft tissue abnormalities. The trachea is midline. The cardiac silhouette and mediastinum are within normal limits. No pneumothorax, pleural effusions, or consolidations.
--- NOTE | 2024-12-11 15:06 | PROGRESS NOTE ---
Daily Progress Note Providers to CC ~ Antibiotic Timeout Antibiotic Ordered?: Yes If Yes, Indications: c.diff Subjective No acute events overnight. Patient examined at bedside. No new complaints. Awake and alert but not oriented enough to make decisions for himself. JORGE LUIS daughter lives [place] of state and unable to provide documentation. Patient denies chest pain, sob, palpitations, abdominal pain, n/v/d. Downgraded yesterday, labs acidosis with bicarb downtrending from 14 to 11 on bicarb drip, lactic acid 7, severe CHERIE with hyperkalemia. Tele 10 secs of 3rd degree AVB. Consulted hall monitor Dr. Lauren. Lead Electrical Controls Engineer Dr. Prater and I spoke with daughter JORGE LUIS Serra who verbalizes full understanding of existing comorbidities/prognosis and wishes to change code status to DNR with comfort care. Objective Vital Signs Date Time Temp Pulse Resp B/P (MAP) Pulse Ox O2 Delivery O2 Flow Rate FiO2 12/11/24 14:05 8.0 12/11/24 14:05 98 20 100 Nasal Cannula* 44 12/11/24 08:30 90/55 (67) 12/11/24 06:00 97.1 Result Diagram: 12/11/24 0554 12/11/24 1219 Physical Exam General: Awake and alert but not oriented, NAD HEENT: Normocephalic, PERRLA Neck: Supple, trachea midline, no JVD Chest: Clear to auscultation bilaterally Cardiovascular: RRR, S1&S2 GI: Soft and nontender Extremities: No cyanosis/clubbing/or edema STUDENT ADMISSIONS CLERK: No focal deficits Musculoskeletal: No paraspinal muscle tenderness, no muscle spasm Skin: Warm and intact Coagulation Studies Laboratory Tests Test 12/09/24 12:09 12/10/24 15:51 12/11/24 12:19 Prothrombin Time 10.2 SECONDS (9.0-12.0) INR International Normalized Ratio 1.0 INR Activated Partial Thromboplast Time 40 SECONDS (22-32) H APTT (Heparin Protocol) 37 SECONDS (45-60) L Coagulation Comments Problem\Assessment\Plan Assessment & Plan NSTEMI Hx CABG Acute decompensated systolic heart failure, LVEF 25% Hypotension 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 Nam consulted, recommended medical management with heparin drip x48h, GDMT, DAPT, statin as patient is not a good candidate for LHC/intervention. -12/11: downgraded yesterday, labs acidosis with bicarb downtrending from 14 to 11 on bicarb drip, lactic acid 7, severe CHERIE with hyperkalemia. Tele 10 secs of 3rd degree AVB. Consulted hall monitor Dr. Lauren. Lead Electrical Controls Engineer Dr. Prater and I spoke with daughter JORGE LUIS Serra who verbalizes full understanding of existing comorbidities/prognosis and wishes to change code status to DNR with comfort care. I spent a total of 35 minutes discussing Advanced Care Planning measures with the patient's POA daughter Anju Serra. JORGE LUIS Serra [phone] CVA PAD s/p right ROCK stent Date of Service: Dec 11, 2024 Billing Provider: HANNY HARRIS Common Visit Codes: 21224-[id number] INP/OBS CARE(HIGH) Secondary Visit Codes: 28193-[id number] CARE PLAN 30 MINUTES HANNY HARRIS Dec 11, 2024 15:06
[2024-12-11 15:31] VITALS: PULSE 106; RESP 28; O2SAT 95
--- NOTE | 2024-12-11 15:42 | PROGRESS NOTE ---
Subjective Subjective Patient is examined at bedside. Patient continues to complain of chest pain. Course now complicated with multi organ failure in lactic acidosis. I was called to evaluate the patient for transfer to the ICU. Reason for visit: Pulmonary critical care consultation Reviewed: Care Plan, H&P, Labs, Medications, Radiology Review of Systems Changes from previous H/P or p: No Changes Daily Progress Note Exam Vitals Vital Signs Date Time Temp Pulse Resp B/P (MAP) Pulse Ox O2 Delivery O2 Flow Rate FiO2 12/11/24 14:05 8.0 12/11/24 14:05 98 20 100 Nasal Cannula* 44 12/11/24 08:30 90/55 (67) 12/11/24 06:00 97.1 Result Diagram: 12/11/24 0554 12/11/24 1219 Exam General: Frail looking patient HEENT examination: N/C/80, PERRLA, EOMI Neck: Supple with no jugular venous distention and no lymphadenopathy. Chest: Symmetric expansion bilaterally Pulmonary: Clear to auscultation bilaterally, with no we will, no rales and no rhonchi Cardiovascular: Normal S1 and S2 without any S3-S4 gallop. Abdomen: Soft nontender no organomegaly Extremities: No cyanosis clubbing edema Neuro: Awake alert and conversant Results Coagulation Studies Laboratory Tests Test 12/09/24 12:09 12/10/24 15:51 12/11/24 12:19 Prothrombin Time 10.2 SECONDS (9.0-12.0) INR International Normalized Ratio 1.0 INR Activated Partial Thromboplast Time 40 SECONDS (22-32) H APTT (Heparin Protocol) 37 SECONDS (45-60) L Coagulation Comments VTE VTE Risk Score VTE Risk Score Reference Ranges: Score 0-1 = Low Risk (Aggressive mobilization; early ambulation; no VTE prophylaxis required) Score 2: Moderate Risk (Intermittent/Pneumatic Compression Device OR Lovenox/Heparin/Coumadin) Score 3-4: High Risk (Intermittent/Pneumatic Compression Device AND Lovenox/Heparin/Coumadin) Score > or = 5: Highest Risk (Intermittent/Pneumatic Compression Device AND Lovenox/Heparin/Coumadin) Assessment/Plan Assessment A 63-year-old male with a past medical history of CAD status post CABGx4 presented to the ED in view of chest pain. Patient's troponin were elevated and had an EKG findings of left bundle-branch block of unknown age. The LBBB was previously present. Cardiology recommended goals of care. Patient is being admitted for the management of NSTEMI. Patient is stable for transfer to the floor. Plan NSTEMI CAD s/p CABGX4 History of recent LHC which revealed occluded vein grafts, patent PEREZ-LAD, occluded LAD, RCA, high-grade LMCA-LCx disease Elevated troponins C diff colitis Isolation precautions Continue vancomycin p.o. 125 mg q.6h CHERIE on CKD History of recurrent UTI Code status: Full code Diet: Heart healthy Anticoagulation: Aspirin, Plavix Social: I had a conversation with the patient's daughter Mrs. Anju Contreras. I informed her about her father's dismal cardiac outlook given the fact that he only has one patent grafts out of four after CABG and that he continues to have intermittent chest pains that are his anginal equivalent. The patient's developer programmer analyst concurs that he has cardiac outlook is very poor. In addition to this, he now worsening renal function with mild hypokalemia, high anion gap and a serum CO2 of 11, signaling the need for renal replacement therapy. In addition to this, he has a lactic acidosis with a lactic acid of 6.3. I recommended that given the patient's poor prognosis no further escalation of therapy she would be undertaken but rather that we should transition to comfort measures. This suggestion was well received by the daughter who was advocating for a do not resuscitate prior to all this. The developer programmer analyst talked to the son at the time of admission who also was in favor of do not resuscitate. With therefore we will transition to comfort measures. Disposition: Keep patient in PCU and do not transferred to ICU. Overall prognosis remains guarded Critical care time: 35 minutes ADAMA CLAY MD Dec 11, 2024 15:42
[2024-12-11] MEDS: morphine 10mg/ml inj. IV PRN (19:46)
[2024-12-11] MEDS ORDERED: docusate sod 100mg capsule PO SCH (20:00)
[2024-12-11] MEDS ORDERED: morphine 10mg/0.5ml (conc. morphine) oral syringe PO PRN (20:25)
[2024-12-11] MEDS: morphine 4 MG/ML inj SYRINge IV PRN (22:16)
[2024-12-12 02:27] VITALS: RESP 18
--- NOTE | 2024-12-12 12:21 | DISCHARGE SUMMARY ---
Discharge Summary Providers to CC ~ Discharge Summary Admission Diagnosis: Non-STEMI, cardiogenic shock, CHERIE, CKD Hospital Course DATE OF ADMISSION: 12/09/24 DATE OF DISCHARGE: 12/12/24 Discharge Diagnosis\\Comment: NSTEMI Hx CABG Acute decompensated systolic heart failure, LVEF 25% Hypotension Prerenal CHERIE on CKD 2/2 vasomotor nephropathy Sepsis 2/2 C.diff- POA C.diff Hyperglycemia Hypoalbuminemia Hyperkalemia Cardiac arrest 2/2 cardiogenic shock Operations\\Procedures: None Consultants: Second Cutter Julia Lindsay Clerical Aide Teacher Adan Johnson Complications: Condition on DC: Discharge Summary: History of Present Illness From H&P: "63-year-old male admitted to the hospital with a chief complaint of abdominal pain accompanied by loose bowel movements without any nausea or vomiting. The patient also reports having had some chest pains in the past few days that were on and off described as similar to the chest pain that he had when he had a myocardial infarction. His workup in the emergency department revealed hypotension. His EKG revealed a left bundle branch block of unknown age. He was also notable for leukocytosis of 15.2 with neutrophil predominance. He had a BUN of 28 and a creatinine of 2.60. His glucose was 212. At the time when I saw him, he was awake alert and conversant. He did not seem to be in any distress. He did not have any chest pain at my time of visiting with him." Hospital Course Other findings were notable for elevated lactic acid, elevated pBNP, significant elevated troponin series, renal insufficiency, hypoxia, LVEF of 25%. Second Cutter Dr. Nam was consulted with recommendation for medical management with heparin drip, GDMT, DAPT, statin as patient was not a good candidate for LHC/intervention. Patient was initially admitted to ICU and was transferred to PCU. On the following day, lactic acid was significantly elevated with metabolic acidosis with bicarb at 11, significant renal insufficiency with hyperkalemia. Bicarb drip was started and case was consulted with home performance laborer Dr. Lynn. Patient also developed transient third-degree AVB. Given poor prognosis, Mast Maker Dr. Prater and I spoke with daughter JORGE LUIS Serra who verbalized full understanding of existing comorbidities/prognosis and wished to change code status to DNR with comfort care. Patient was provided with comfort care measures then. Patient from cardiac arrest on 12/12/24 at 1130. Physical Exam Pulseless, *Problems/Diagnosis: (1) NSTEMI (non-ST elevated myocardial infarction) Status: Acute Total Time Spent on D/C: > 30 Minutes Date of Service: Dec 12, 2024 Billing Provider: HANNY HARRIS Common Visit Codes: 67063-YYX/OBS DISCH DAY >30min HANNY HARRIS Dec 12, 2024 12:20
== END 2024-12-12 14:40 | DRG 871 ==
LOC: ER 10:44 → ED HOLD 15:24 → CICU 2S 21:14 → PCU 3S 12-10 18:39 → SUR 3N 12-11 22:35
PROVIDERS: ADMIT Internal Medicine Critical Care Medicine; ATTEND Internal Medicine Critical Care Medicine
PROC: B32T1ZZ Computerized Tomography (CT Scan) of Left Pulmonary Artery using Low Osmolar Contrast (ICD-10-PCS; principal; 2024-12-09)
PROC: B3201ZZ Computerized Tomography (CT Scan) of Thoracic Aorta using Low Osmolar Contrast (ICD-10-PCS; 2024-12-09)
PROC: B32S1ZZ Computerized Tomography (CT Scan) of Right Pulmonary Artery using Low Osmolar Contrast (ICD-10-PCS; 2024-12-09)
DX: A41.89 Other specified sepsis (principal); I21.4 Non-ST elevation (NSTEMI) myocardial infarction; I50.23 Acute on chronic systolic (congestive) heart failure; N17.0 Acute kidney failure with tubular necrosis; I69.354 Hemiplegia and hemiparesis following cerebral infarction affecting left non-dominant side; I13.0 Hypertensive heart and chronic kidney disease with heart failure and stage 1 through stage 4 chronic kidney disease, or unspecified chronic kidney disease; N18.4 Chronic kidney disease, stage 4 (severe); A04.72 Enterocolitis due to Clostridium difficile, not specified as recurrent; I44.2 Atrioventricular block, complete; I46.9 Cardiac arrest, cause unspecified; Z66 Do not resuscitate; D64.9 Anemia, unspecified; E87.5 Hyperkalemia; I25.10 Atherosclerotic heart disease of native coronary artery without angina pectoris; F31.9 Bipolar disorder, unspecified; E78.00 Pure hypercholesterolemia, unspecified; E11.22 Type 2 diabetes mellitus with diabetic chronic kidney disease; F20.9 Schizophrenia, unspecified; E88.09 Other disorders of plasma-protein metabolism, not elsewhere classified; E11.65 Type 2 diabetes mellitus with hyperglycemia; R09.02 Hypoxemia; Z95.1 Presence of aortocoronary bypass graft; Z88.1 Allergy status to other antibiotic agents; Z88.8 Allergy status to other drugs, medicaments and biological substances; Z79.899 Other long term (current) drug therapy; Z51.5 Encounter for palliative care; Z87.891 Personal history of nicotine dependence
CPT/HCPCS: 36415; 36600; 71045; 71275; 74174; 80048; 80053; 81001; 82803; 82948; 83605; 83735; 83880; 84100; 84132; 84145; 84484; 85008; 85018; 85025; 85610; 85730; 87040; 87045; 87046; 87081; 87088; 87324; 87449; 93005; 93306; 94640; 94760; 96361; 96365; 96367; 99291; A4314; A4615; A5200; A6213; A6449; A7015; C1751; G0378; J0696; J1644; J1815; J1938; J2060; J2270; J2274; J3490; J7030; J7040; J7070; J7120; P9047; Q9967